=== PATIENT | female | born 1950 | race African-American/Black ===

== ENCOUNTER 2019-01-23 15:52 | Emergency (ER) | payer OTHER ==
[~2019-01-23] VITALS: Ht 167.6 cm; Wt 92.1 kg
--- OUTSIDE RECORDS SUMMARY | 2019-01-23 15:56 | XMS REPORT | Summary of Care ---
Author Author [facility] Organization [facility] Address Unknown Phone Unavailable Encounter HQ Howard(RICHARD) [id number] Date(s): 08/12/17 - 08/12/17 [facility] [address] [place] [address]- Discharge Disposition: Home or Self Care Attending Physician: Srinivasa Borrego MD Referring Physician: Srinivasa Borrego MD Vital Signs No data available for this section Problem List Condition Effective Dates Status Health Status Informant Sarcoidosis, Resolved unspecified(Confirme d) Diabetes(Confirmed) Active Hypertension(Confirm Active ed) Arthritis(Confirmed) Active Allergies, Adverse Reactions, Alerts Substance Reaction Severity Status NKDA Active Medications No data available for this section Results No data available for this section Immunizations No data available for this section Procedures Procedure Date Related Diagnosis Body Site Hysterectomy Social History Social History Type Response Smoking Status Never smoker; Concerns about tobacco use in household: No; Exposure to Tobacco Smoke None; Cigarette Smoking Last 365 Days No; Reg Smoking Cessation Counseling No Assessment and Plan No data available for this section
--- OUTSIDE RECORDS SUMMARY | 2019-01-23 15:56 | XMS REPORT ---
Author Author Petros Martin Organization [employer] Address Unknown Phone Unavailable Care Team Providers Care Caddie Supervisor Name Role Phone Petros Martin CP Unavailable Allergies No Known Allergies Problems Problem Type Condition Code Onset Dates Condition Status Problem Polyarthralgia M25.50 Active Problem Polyarthritis M13.0 Active Problem Hip bursitis, left M70.72 Active Problem Osteoporosis M81.0 Active Problem Vitamin D deficiency, unspecified E55.9 Active Problem Long-term use of high-risk medication Z79.899 Active Problem Sarcoidosis, unspecified D86.9 Active Problem Rheumatoid arthritis with positive rheumatoid factor M05.9 Active Problem Osteopenia M85.80 Active Medications No Known Medications Results No Known Results Summary Purpose eClinicalWorks Submission
--- OUTSIDE RECORDS SUMMARY | 2019-01-23 15:56 | XMS REPORT | Summary of Care ---
Author Author [facility] Organization [facility] Address Unknown Phone Unavailable Encounter KAREN Lawrence(RICHARD) [id number] Date(s): 03/28/18 - 03/28/18 [facility] [address] [place] [address]- [phone] Discharge Disposition: Home or Self Care Attending Physician: Humphrey Lowery DPJorge Referring Physician: Humphrey Lowery DPJorge Vital Signs 1 2 3 Most recent to oldest [Reference Range]: 167.64 cm (03/25/18 8:25 AM) Height 121/61 mmHg (03/28/18 9:45 AM) 114/65 mmHg (03/28/18 9:00 AM) 122/76 mmHg (03/28/18 8:45 AM) Blood Pressure [90-140/60-90 mmHg] 14 BRMIN (03/28/18 8:45 AM) 17 BRMIN (03/28/18 8:30 AM) 12 BRMIN *LOW* (03/28/18 8:15 AM) Respiratory Rate [14-20 BRMIN] 105.085 kg (03/25/18 8:25 AM) Weight 37.39 m2 (03/25/18 8:25 AM) Body Mass Index Problem List Condition Effective Dates Status Health Status Informant Sarcoidosis, Resolved unspecified(Confirme d) Diabetes(Confirmed) Active 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) Hypertension(Confirm Active ed) Arthritis(Confirmed) Active Allergies, Adverse Reactions, Alerts Substance Reaction Severity Status NKDA Active Medications ANES flumazenil 0.2 mg, Route: IVP, PRN, Dosing Weight 105.085, kg, PRN Benzodiazepine Reversal, Initial dose, Start date: 03/28/18 8:52:00 CDT, Duration: 30 day, Stop date: 8:51:00 CDT Start Date: 03/28/18 Stop Date: 03/28/18 Status: Discontinued ANES hydrALAZINE 10 mg, Route: IVP, Q20Min, Dosing Weight 105.085, kg, PRN Elevated BP, Start anila e: 03/28/18 8:52:00 CDT, Duration: 2 doses or times, Stop date: Limited # of gonzalo es Start Date: 03/28/18 Stop Date: 03/28/18 Status: Discontinued ANES meperidine 12.5 mg, Route: IVP, Q30Min, Dosing Weight 105.085, kg, PRN Other -See Comment, For shivering, Start date: 03/28/18 8:52:00 CDT, Duration: 2 doses or times, Sto p date: Limited # of times Start Date: 03/28/18 Stop Date: 03/28/18 Status: Discontinued ANES metoprolol 1 mg, Route: IVP, Q5Min, Dosing Weight 105.085, kg, PRN Other -See Comment, Star t date: 03/28/18 8:52:00 CDT, Duration: 5 doses or times, Stop date: Limited # o f times Start Date: 03/28/18 Stop Date: 03/28/18 Status: Discontinued ANES morphine Sulfate 4 mg, Route: IVP, Q5Min, Dosing Weight 105.085, kg, PRN Pain Score 7-10, Start d ate: 03/28/18 8:52:00 CDT, Duration: 3 doses or times, Stop date: Limited # of t imes Start Date: 03/28/18 Stop Date: 03/28/18 Status: Discontinued ANES naloxone 0.4 mg, Route: IVP, Q2MIN, Dosing Weight 105.085, kg, PRN Narcotic Reversal, Sta rt date: 03/28/18 8:52:00 CDT, Duration: 8 doses or times, Stop date: Limited # of times Start Date: 03/28/18 Stop Date: 03/28/18 Status: Discontinued ANES ondansetron 4 mg, Route: IVP, ONCE, Dosing Weight 105.085, kg, PRN Nausea & Vomiting, Start date: 03/28/18 8:52:00 CDT Start Date: 03/28/18 Stop Date: 03/28/18 Status: Discontinued ANES oxyCODONE 5 mg, Route: PO, Drug form: TAB, Q4H, Dosing Weight 105.085, kg, PRN Pain Score 4-6, Start date: 03/28/18 8:52:00 CDT, Duration: 30 day, Stop date: 04/27/18 8:5 1:00 CDT Start Date: 03/28/18 Stop Date: 03/28/18 Status: Discontinued Basaglar KwikPen 100 units/mL subcutaneous solution 15 unit, SUB-Q, Bedtime, # 6 mL, 3 Refill(s) Start Date: 03/25/18 Status: Ordered ceFAZolin (ANES) 1000 mg Route: IV, Drug form: INJ, Start date: 03/28/18 7:32:00 CDT, Stop date: 03/28/18 8:32:00 CDT Start Date: 03/28/18 Stop Date: 03/28/18 Status: Completed Dextrose 50% Syringe 12.5 gm, Route: IVP, Dosing Weight 105.085, kg, ONCE, Start date: 03/28/18 6:58: 00 CDT, Stop date: 03/28/18 6:58:00 CDT Start Date: 03/28/18 Stop Date: 03/28/18 Status: Completed famotidine (ANES) Route: IV, Drug form: INJ, ONCE, Stop date: 03/28/18 8:08:00 CDT Start Date: 03/28/18 Stop Date: 03/28/18 Status: Completed fentaNYL (ANES) Route: IV, Drug form: INJ, ONCE, Stop date: 03/28/18 8:08:00 CDT Start Date: 03/28/18 Stop Date: 03/28/18 Status: Completed Lactated Ringers Injection IV 1,000 mL 1,000 mL, Rate: 25 ml/hr, Infuse over: 40 hr, Route: IV, Dosing Weight 105.085 k g, Total Volume: 1,000, Start date: 03/28/18 6:30:00 CDT, Duration: 1 day, Stop date: 03/29/18 6:29:00 CDT, 2.24, m2 Start Date: 03/28/18 Stop Date: 03/28/18 Status: Discontinued lidocaine (ANES) Route: IV, Drug form: INJ, ONCE, Stop date: 03/28/18 8:08:00 CDT Start Date: 03/28/18 Stop Date: 03/28/18 Status: Completed metoclopramide (ANES) Route: IV, Drug form: INJ, ONCE, Stop date: 03/28/18 8:08:00 CDT Start Date: 03/28/18 Stop Date: 03/28/18 Status: Completed midazolam (ANES) Route: IV, Drug form: SOLN, ONCE, Stop date: 03/28/18 8:08:00 CDT Start Date: 03/28/18 Stop Date: 03/28/18 Status: Completed propofol (ANES) Route: IV, Drug form: INJ, ONCE, Stop date: 03/28/18 8:08:00 CDT Start Date: 03/28/18 Stop Date: 03/28/18 Status: Completed Sodium Chloride 0.9% IV (ANES) 500 mL Route: IV, Total Volume: 500, Start date: 03/28/18 7:31:00 CDT, Stop date: 03/28 8:31:00 CDT Start Date: 03/28/18 Stop Date: 03/28/18 Status: Completed Sodium Chloride 0.9% IV 500 mL 500 mL, Rate: 25 ml/hr, Infuse over: 20 hr, Route: IV, Dosing Weight 105.085 kg, Total Volume: 500, Start date: 03/28/18 6:45:00 CDT, Duration: 1 doses or times, Stop date: 03/29/18 2:44:00 CDT, 2.24, m2 Start Date: 03/28/18 Stop Date: 03/28/18 Status: Completed Results ELECTROLYTES Most recent to 1 oldest [Reference Range]: Sodium Lvl [135-145 141 mEq/L mEq/L] (03/25/18 9:04 AM) Potassium Lvl 5.1 mEq/L [3.5-5.1 mEq/L] (03/25/18 9:04 AM) Chloride Lvl [95-109 104 mEq/L mEq/L] (03/25/18 9:04 AM) CO2 [24-32 mEq/L] 29 mEq/L (03/25/18 9:04 AM) AGAP [10.0-20.0 13.1 mEq/L mEq/L] (03/25/18 9:04 AM) CHEM PANEL Most recent to 1 oldest [Reference Range]: Creatinine Lvl 2.77 mg/dL [0.50-1.40 mg/dL] *HI* (03/25/18 9:04 AM) eGFR 20 mL/min/1.73m2 1 *NA* (03/25/18 9:04 AM) BUN [7-22 mg/dL] 49 mg/dL *HI* (03/25/18 9:04 AM) Glucose Lvl [70-99 58 mg/dL mg/dL] *LOW* (03/25/18 9:04 AM) Calcium Lvl 8.9 mg/dL [8.5-10.5 mg/dL] (03/25/18 9:04 AM) 1Result Comment: The eGFR is calculated using the CKD-EPI formula. In most young, healthy individuals the eGFR will be >90 mL/min/1.73m2. The eGFR declines with age. An eGFR of 60-89 may be normal in some populations, particularly the elderly, for whom the CKD-EPI formula has not been extensively validated. Use of the eGFR is not recommended in the following populations: Individuals with unstable creatinine concentrations, including patients and those with serious co-morbid conditions. Patients with extremes in muscle mass or diet. The data above are obtained from the National Kidney Disease Education Program ( NKDEP) which additionally recommends that when the eGFR is used in patients with extremes of body mass index for purposes of drug dosing, the eGFR should be mul tiplied by the estimated BMI. SPECIAL CHEMISTRY Most recent to 1 oldest [Reference Range]: Hgb A1C [<=5.6 %] 4.5 % (03/25/18 9:04 AM) HEMATOLOGY Most recent to 1 oldest [Reference Range]: WBC [3.7-10.4 K/CMM] 2.2 K/CMM *LOW* (03/25/18 9:04 AM) RBC [4.20-5.40 2.96 M/CMM M/CMM] *LOW* (03/25/18 9:04 AM) Hgb [12.0-16.0 g/dL] 9.7 g/dL *LOW* (03/25/18 9:04 AM) Hct [36.0-48.0 %] 29.4 % *LOW* (03/25/18 9:04 AM) MCV [80.0-98.0 fL] 99.2 fL *HI* (03/25/18 9:04 AM) MCH [27.0-31.0 pg] 32.7 pg *HI* (03/25/18 9:04 AM) MCHC [32.0-36.0 33.0 g/dL g/dL] (03/25/18 9:04 AM) RDW [11.5-14.5 %] 16.0 % *HI* (03/25/18 9:04 AM) MPV [7.4-10.4 fL] 8.2 fL (03/25/18 9:04 AM) Platelet [133-450 143 K/CMM K/CMM] (03/25/18 9:04 AM) Segs [45.0-75.0 %] 61.1 % (03/25/18 9:04 AM) Lymphocytes 27.1 % [20.0-40.0 %] (03/25/18 9:04 AM) Monocytes [2.0-12.0 6.9 % %] (03/25/18 9:04 AM) Eosinophils [0.0-4.0 4.1 % %] *HI* (03/25/18 9:04 AM) Basophils [0.0-1.0 0.8 % %] (03/25/18 9:04 AM) Segs-Bands # 1.3 K/CMM [1.5-8.1 K/CMM] *LOW* (03/25/18 9:04 AM) Lymphocytes # 0.6 K/CMM [1.0-5.5 K/CMM] *LOW* (03/25/18 9:04 AM) Monocytes # [0.0-0.8 0.1 K/CMM K/CMM] (03/25/18 9:04 AM) Eosinophils # 0.1 K/CMM [0.0-0.5 K/CMM] (03/25/18 9:04 AM) Macrocyte [None 1+ Seen] *ABN* (03/25/18 9:04 AM) Immunizations No data available for this section Procedures Procedure Date Related Diagnosis Body Site Status Colonoscopy Completed Esophagoduodenostomy Completed Hysterectomy Completed Social History Social History Type Response Alcohol Never Smoking Status Never smoker; Concerns about tobacco use in household: No; Exposure to Tobacco Smoke None; Cigarette Smoking Last 365 Days No; Reg Smoking Cessation Counseling No entered on: 03/28/18 Assessment and Plan No data available for this section
--- OUTSIDE RECORDS SUMMARY | 2019-01-23 15:56 | XMS REPORT | Summary of Care ---
Author Author [facility] Organization [facility] Address Unknown Phone Unavailable Encounter KAREN Lawrence(RICHARD) [id number] Date(s): 05/21/18 - 06/19/18 [facility] [address] [place] [address]- Encounter Diagnosis Anemia in chronic kidney disease (Final) - 08/29/18 Discharge Disposition: Home or Self Care Attending Physician: Srinivasa Borrego MD Referring Physician: Srinivasa Borrego MD Vital Signs Most recent to 1 2 oldest [Reference Range]: Height 162.5 cm (05/21/18 7:37 AM) Temperature Oral 98.4 DegF 98.1 DegF [96.4-99.1 DegF] (06/04/18 2:24 PM) (05/21/18 2:38 PM) Blood Pressure 132/82 mmHg 102/71 mmHg [90-140/60-90 mmHg] (06/04/18 2:24 PM) (05/21/18 2:38 PM) Respiratory Rate 18 BRMIN 18 BRMIN [14-20 BRMIN] (06/04/18 2:24 PM) (05/21/18 2:38 PM) Peripheral Pulse 72 bpm 71 bpm Rate [60-100 bpm] (06/04/18 2:24 PM) (05/21/18 2:38 PM) Weight 96.1 kg (05/21/18 7:37 AM) Body Mass Index 36.39 m2 (05/21/18 7:37 AM) Problem List Condition Effective Dates Status Health Status Informant Sarcoidosis, Resolved unspecified(Confirme d) Diabetes(Confirmed) Active 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 (Procrit)WASTE: F/P - Red; E -Red MEDICATION WASTE Product Size: 4000 unitProduct Wasted: ___ unit Start Date: 05/21/18 Stop Date: 05/21/18 Status: Completed Procrit 8,000 unit, 2 mL, Route: SUB-Q, Drug form: INJ, ONCALL, Start date: 06/04/18 14: 00:00 CDT, Duration: 6 hr, Stop date: 06/04/18 19:59:00 CDT Notes: (Same as: Procrit) epoetin jose eduardo 4000 unit/1ml VLFor non-dialysis use only . (Procrit)WASTE: F/P - Red; E -Red MEDICATION WASTE Product Size: 4000 unitProduct Wasted: ___ unit Start Date: 06/04/18 Stop Date: 06/04/18 Status: Completed Results ELECTROLYTES Most recent to 1 2 oldest [Reference Range]: Sodium Lvl [135-145 139 mEq/L mEq/L] (05/21/18 1:11 PM) Potassium Lvl 4.6 mEq/L [3.5-5.1 mEq/L] (05/21/18 1:11 PM) Chloride Lvl [95-109 99 mEq/L mEq/L] (05/21/18 1:11 PM) CO2 [24-32 mEq/L] 29 mEq/L (05/21/18 1:11 PM) AGAP [10.0-20.0 15.6 mEq/L mEq/L] (05/21/18 1:11 PM) CHEM PANEL Most recent to 1 2 oldest [Reference Range]: Creatinine Lvl 3.90 mg/dL [0.50-1.40 mg/dL] *HI* (05/21/18 1:11 PM) eGFR 13 mL/min/1.73m2 1 *NA* (05/21/18 1:11 PM) BUN [7-22 mg/dL] 66 mg/dL *HI* (05/21/18 1:11 PM) Glucose Lvl [70-99 134 mg/dL mg/dL] *HI* (05/21/18 1:11 PM) Calcium Lvl 9.2 mg/dL [8.5-10.5 mg/dL] (05/21/18 1:11 PM) 1Result Comment: The eGFR is calculated using [...] be mul tiplied by the estimated BMI. ANEMIA STUDY Most recent to 1 2 oldest [Reference Range]: Iron [30-160 ug/dl] 98 ug/dl (05/21/18 1:11 PM) Ferritin Lvl [5-204 614 ng/mL ng/mL] *HI* (05/21/18 1:11 PM) % Satur Fe [12-57 %] 36 % (05/21/18 1:11 PM) UIBC [110-370 ug/dl] 171 ug/dl (05/21/18 1:11 PM) TIBC [228-428 ug/dl] 269 ug/dl (05/21/18 1:11 PM) HEMATOLOGY Most recent to 1 2 oldest [Reference Range]: WBC [3.7-10.4 K/CMM] 2.2 K/CMM *LOW* (05/21/18 1:11 PM) RBC [4.20-5.40 2.78 M/CMM M/CMM] *LOW* (05/21/18 1:11 PM) Hgb [12.0-16.0 g/dL] 9.4 g/dL 9.4 g/dL *LOW* *LOW* (06/04/18 1:08 PM) (05/21/18 1:11 PM) Hct [36.0-48.0 %] 27.4 % 27.8 % *LOW* *LOW* (06/04/18 1:08 PM) (05/21/18 1:11 PM) MCV [80.0-98.0 fL] 99.8 fL *HI* (05/21/18 1:11 PM) MCH [27.0-31.0 pg] 33.6 pg *HI* (05/21/18 1:11 PM) MCHC [32.0-36.0 33.7 g/dL g/dL] (05/21/18 1:11 PM) RDW [11.5-14.5 %] 16.2 % *HI* (05/21/18 1:11 PM) MPV [7.4-10.4 fL] 8.0 fL (05/21/18 1:11 PM) Platelet [133-450 121 K/CMM K/CMM] *LOW* (05/21/18 1:11 PM) Segs [45.0-75.0 %] 78.3 % *HI* (05/21/18 1:11 PM) Lymphocytes 12.2 % [20.0-40.0 %] *LOW* (05/21/18 1:11 PM) Monocytes [2.0-12.0 1.6 % %] *LOW* (05/21/18 1:11 PM) Eosinophils [0.0-4.0 7.2 % %] *HI* (05/21/18 1:11 PM) Basophils [0.0-1.0 0.7 % %] (05/21/18 1:11 PM) Neutrophils # 1.7 K/CMM [1.5-8.1 K/CMM] (05/21/18 1:11 PM) Lymphocytes # 0.3 K/CMM [1.0-5.5 K/CMM] *LOW* (05/21/18 1:11 PM) Eosinophils # 0.2 K/CMM [0.0-0.5 K/CMM] (05/21/18 1:11 PM) Macrocyte [None 1+ Seen] *ABN* (05/21/18 1:11 PM) Immunizations No data available for this section Procedures Procedure Date Related Diagnosis Body Site Status Colonoscopy Completed Esophagoduodenostomy Completed Hysterectomy Completed Social History Social History Type Response Alcohol Never Smoking Status Never smoker; Concerns about tobacco use in household: No; Exposure to Tobacco Smoke None; Cigarette Smoking Last 365 Days No; Reg Smoking Cessation Counseling No entered on: 01/05/19 Assessment and Plan No data available for this section
--- OUTSIDE RECORDS SUMMARY | 2019-01-23 15:56 | XMS REPORT ---
Author Author Chelsy Reeder [facility] [employer] Address Unknown Phone Unavailable Care Team Providers Care Catering Server Name Role Phone Chelsy Reeder CP Unavailable Allergies No Known Allergies Problems [...] M05.9 Active Problem Osteopenia M85.80 Active Medications Medication Code System Code Instructions Start Date End Date Status Dosage Methotrexate [facility] 13079416500 2.5 MG Orally once a week Nov 25, 2017 Active 5 tablets Results No Known Results Summary Purpose [employer]ClinicalWorks Submission
--- OUTSIDE RECORDS SUMMARY | 2019-01-23 15:56 | XMS REPORT | Summary of Care ---
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
--- OUTSIDE RECORDS SUMMARY | 2019-01-23 15:56 | XMS REPORT ---
Author Author Petros Martin Organization [employer] Address Unknown Phone Unavailable Care Team Providers Care Cage Unloader Name Role Phone Petros Martin CP Unavailable Allergies No Known Allergies Problems Problem Type Condition Code Onset Dates Condition Status Problem Polyarthralgia M25.50 Active Problem Rheumatoid arthritis with positive rheumatoid factor M05.9 Active Problem Sarcoidosis, unspecified D86.9 Active Problem Polyarthritis M13.0 Active Problem Primary osteoarthritis of right knee M17.11 Active Problem Vitamin D deficiency, unspecified E55.9 Active Problem Primary osteoarthritis of left knee M17.12 Active Problem Long-term use of high-risk medication Z79.899 Active Problem Osteopenia M85.80 Active Problem Hip bursitis, left M70.72 Active Problem Osteoporosis M81.0 Active Medications No Known Medications Results No Known Results Summary Purpose [employer] Submission
--- OUTSIDE RECORDS SUMMARY | 2019-01-23 15:56 | XMS REPORT | Summary of Care ---
Author Author [facility] Organization [facility] Address Unknown Phone Unavailable Encounter HQ Encntr_aliboni(FIN) [id number] Date(s): 04/11/17 - 04/11/17 [facility] [address] [place] [address]- Discharge Disposition: Home or Self Care Attending Physician: Saman Story MD Referring Physician: Saman Story MD Vital Signs No data available for this section Problem List Condition Effective Dates Status Health Status Informant Diabetes(Confirmed) Resolved Allergies, Adverse Reactions, Alerts Substance Reaction Severity Status NKDA Active Medications No data available for this section Results No data available for this section Immunizations No data available for this section Procedures No data available for this section Social History Social History Type Response Smoking Status Never smoker; Exposure to Tobacco Smoke None; Cigarette Smoking Last 365 Days No; Reg Smoking Cessation Counseling No Assessment and Plan No data available for this section
--- OUTSIDE RECORDS SUMMARY | 2019-01-23 15:56 | XMS REPORT ---
Author Author Petros Martin Organization [employer] Address Unknown Phone Unavailable Care Team Providers Care Furniture Rental Consultant Name Role Phone Petros Martin CP Unavailable Allergies No Known Allergies Problems Problem Type Condition Code Onset Dates Condition Status Problem Polyarthralgia M25.50 Active Problem Rheumatoid arthritis with positive rheumatoid factor M05.9 Active Problem Sarcoidosis, unspecified D86.9 Active Assessment Osteoporosis M81.0 Active Problem Polyarthritis M13.0 Active Problem Primary osteoarthritis of right knee M17.11 Active Problem Vitamin D deficiency, unspecified E55.9 Active Problem Primary osteoarthritis of left knee M17.12 Active Problem Long-term use of high-risk medication Z79.899 Active Problem Osteopenia M85.80 Active Problem Hip bursitis, left M70.72 Active Problem Osteoporosis M81.0 Active Medications Medication Code System Code Instructions Start Date End Date Status Dosage Prolia [facility] [id number] 60 MG/ML Subcutaneous q 6 months Nov 13, 2018 Active as directed Results No Known Results Summary Purpose eClinicalWorks Submission
--- OUTSIDE RECORDS SUMMARY | 2019-01-23 15:56 | XMS REPORT | Summary of Care ---
Author Author [facility] Address Unknown Phone Unavailable Encounter HQ Encntr_aliboni(FIN) [id number] Date(s): 05/08/16 - 06/06/16 [facility] Discharge Disposition: Home or Self Care Attending Physician: Alen Nicole MD Vital Signs No data available for [...]
--- OUTSIDE RECORDS SUMMARY | 2019-01-23 15:56 | XMS REPORT ---
Author Author Petros Martin Organization [employer] Address Unknown Phone Unavailable Care Team Providers Care Circle Edger Name Role Phone Petros Martin CP Unavailable [...] Medications Results No Known Results Summary Purpose [employer] Submission
--- OUTSIDE RECORDS SUMMARY | 2019-01-23 15:56 | XMS REPORT ---
Author Author Petros Martin Organization [employer] Address Unknown Phone Unavailable Care Team Providers Care Electronics System Mechanic Name Role Phone Petros Martin CP Unavailable [...] Instructions Start Date End Date Status Dosage Rasuvo [facility] [id number] 15 MG/0.3ML Subcutaneous Once a week Nov 27, 2017 Active as directed Results No Known Results Summary Purpose eClinicalWorks Submission
--- OUTSIDE RECORDS SUMMARY | 2019-01-23 15:56 | XMS REPORT | Continuity of Care Document ---
Author Author [facility]rant[facility] Interface Address Unknown Phone Unavailable Problems Problem Status Onset Date Classification Date Reported Comments Source PROCRIT 8,000 UNITS J0885 // CPT: 02379 Active 12/02/2018 [facility] Anemia in chronic kidney disease 08/29/2018 01/06/2019 [facility] PROCRIT 8,000 UNITS /// CPT: J0885, 9637 Active 07/01/2018 [facility] Chronic kidney disease, unspecified 05/15/2018 11/25/2018 [facility] UNK Active 03/13/2018 [facility] Plantar fascial fibromatosis 01/01/2018 04/02/2018 [facility] DX: M72.2=PLANTAR FASCIAL FIBROMATOSIS/D Active 12/17/2017 [facility] DX: Active 07/31/2017 [facility] CHRONIC KIDNEY DISEASE Active 07/23/2017 [facility] R05 Active 07/19/2017 [facility] DX: K21.9=GASTRO-ESOPHAGEAL REFLUX DISEA Active 04/04/2017 [facility] FALL Active 12/05/2015 [facility] Discharge Diagnosis: Nondisplaced fracture of triquetrum [cuneiform] bone, left wrist, initial encounter for closed fracture 12/05/2015 12/08/2015 [facility] Discharge Diagnosis: Nondisplaced fracture of lateral malleolus of left fibula, initial encounter for closed fracture 12/05/2015 12/08/2015 [facility] Sarcoidosis, unspecified Resolved Problem 01/08/2019 [facility] Diabetes Active Problem 01/08/2019 [facility] [place] Hypertension Active Problem 01/08/2019 [facility] Arthritis Active Problem 01/08/2019 [facility] Benign lipomatous neoplasm of skin and subcutaneous tissue of right leg 04/02/2018 [facility] 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 Active Problem 01/08/2019 [facility] Rheumatoid arthritis with positive rheumatoid factor Active Problem 12/26/2018 Reed Martin Polyarthralgia Active Problem 12/26/2018 Reed Martin Polyarthritis Active Problem 12/26/2018 Reed Krafter Long-term use of high-risk medication Active Problem 12/26/2018 Reed Martin Hip bursitis, left Active Problem 12/26/2018 Reed Martin Osteoporosis Active Problem 12/26/2018 Reed Martin Vitamin D deficiency, unspecified Active Problem 12/26/2018 Reed Martin Sarcoidosis, unspecified Active Problem 12/26/2018 Reed Martin Osteopenia Active Problem 12/26/2018 Reed Martin Hammertoe of left foot Active Problem 03/14/2018 [facility] Rheumatoid arthritis involving both feet, unspecified rheumatoid factor presence Active Problem 03/14/2018 [facility] Hammertoe of right foot Active Problem 03/14/2018 [facility] Type 2 diabetes mellitus without complications Active Problem 03/14/2018 [facility] Rheumatoid arthritis with rheumatoid factor of right ankle and foot without organ or systems involvement Active Problem 03/14/2018 [facility] Plantar fasciitis Active Problem 03/14/2018 [facility] nursing home current use of insulin Active Problem 03/14/2018 [facility] Lipoma of right lower extremity Active Problem 03/14/2018 [facility] Rheumatoid arthritis with rheumatoid factor of left ankle and foot without organ or systems involvement Active Problem 03/14/2018 [facility] Lipoma of left lower extremity Active Problem 03/14/2018 [facility] Chronic kidney disease, stage 4 Active Problem 03/14/2018 [facility] Type 2 diabetes mellitus with diabetic chronic kidney disease Active Problem 03/14/2018 [facility] Primary osteoarthritis of right knee Active Problem 12/26/2018 Reed Martin Primary osteoarthritis of left knee Active Problem 12/26/2018 Reed Krafter Decreased renal function Active Diagnosis 08/16/2018 Reed Martin Anemia Active Diagnosis 08/16/2018 Reed Martin nursing home use of opiate analgesic Active Diagnosis 07/19/2018 Reed Martin LT SHOULDER IMPINGMENT SYNDROME, LT WRIS Active [facility] [place] CHRONIC KIDNEY DISEASE, STAGE 4 (SEVERE) Active [facility] COUGH Active [facility] HYPERTENSIVE CHRONIC KIDNEY DISEASE W ST Active [facility] PLANTAR FASCIAL FIBROMATOSIS Active [facility] BENIGN LIPOMATOUS NEOPLASM OF SKIN, SUBC Active [facility] Medications Medication Details Route Status Patient Instructions Ordering Provider Order Date Source Prolia as directed Subcutaneous Active 60 MG/ML Subcutaneous Reeder 11/13/2018 Reed Martin Tylenol/Codeine #3 1 tablet as needed Orally Active 300-30 MG Orally TID Reeder 10/08/2018 Reed Martin Tylenol/Codeine #3 1 tablet as needed Orally Active 300-30 MG Orally TID Reeder 09/29/2018 Reed Martin Methotrexate take 5 tablets by mouth every week Orally Active 2.5 MG Orally Once a week Martin 08/12/2018 Reed Martin Procrit 8,000 unit, 2 mL, Route: SUB-Q, Drug form: INJ, ONCALL, Start date: 06/04/18 14:00:00 CDT, Duration: 6 hr, Stop date: 06/04/18 19:59:00 CDTNotes: (Same as: Procrit) epoetin jose eduardo 4000 unit/1ml VL For non- dialysis use only. (Procrit) WASTE: F/P - Red; E -Red MEDICATION WASTE Product Size: 4000 unit Product Wasted: ___ unit Inactive 06/04/2018 [facility] Procrit 8,000 unit, 2 mL, Route: SUB-Q, Drug form: INJ, ONCALL, Start date: 05/21/18 15:00:00 CDT, Duration: 6 hr, Stop date: 05/21/18 20:59:00 CDTNotes: (Same as: Procrit) epoetin jose eduardo 4000 unit/1ml VL For non- dialysis use only. (Procrit) WASTE: F/P - Red; E -Red MEDICATION WASTE Product Size: 4000 unit Product Wasted: ___ unit Inactive 05/21/2018 [facility] Procrit 8,000 unit, 2 mL, Route: SUB-Q, Drug form: INJ, ONCALL, Start date: 05/07/18 14:00:00 CDT, Duration: 6 hr, Stop date: 05/07/18 19:59:00 CDTNotes: (Same as: Procrit) epoetin jose eduardo 4000 unit/1ml VL For non- dialysis use only. (Procrit) WASTE: F/P - Red; E -Red MEDICATION WASTE Product Size: 4000 unit Product Wasted: ___ unit Inactive 05/07/2018 [facility] Ondansetron 4 mg, Route: IVP, ONCE, Dosing Weight 105.085, kg, PRN Nausea & Vomiting, Start date: 03/28/18 8:52:00 CDT Inactive 03/28/2018 [facility] Metoprolol 1 mg, Route: IVP, Q5Min, Dosing Weight 105.085, kg, PRN Other -See Comment, Start date: 03/28/18 8:52:00 CDT, Duration: 5 doses or times, Stop date: Limited # of times Inactive 03/28/2018 [facility] Oxycodone 5 mg, Route: PO, Drug form: TAB, Q4H, Dosing Weight 105.085, kg, PRN Pain Score 4-6, Start date: 03/28/18 8:52:00 CDT, Duration: 30 day, Stop date: 04/27/18 8:51:00 CDT Inactive 03/28/2018 [facility] Morphine 4 mg, Route: IVP, Q5Min, Dosing Weight 105.085, kg, PRN Pain Score 7-10, Start date: 03/28/18 8:52:00 CDT, Duration: 3 doses or times, Stop date: Limited # of times Inactive 03/28/2018 [facility] Flumazenil 0.2 mg, Route: IVP, PRN, Dosing Weight 105.085, kg, PRN Benzodiazepine Reversal, Initial dose, Start date: 03/28/18 8:52:00 CDT, Duration: 30 day, Stop date: 04/27/18 8:51:00 CDT Inactive 03/28/2018 [facility] Naloxone 0.4 mg, Route: IVP, Q2MIN, Dosing Weight 105.085, kg, PRN Narcotic Reversal, Start date: 03/28/18 8:52:00 CDT, Duration: 8 doses or times, Stop date: Limited # of times Inactive 03/28/2018 [facility] Meperidine 12.5 mg, Route: IVP, Q30Min, Dosing Weight 105.085, kg, PRN Other -See Comment, For shivering, Start date: 03/28/18 8:52:00 CDT, Duration: 2 doses or times, Stop date: Limited # of times Inactive 03/28/2018 [facility] Hydralazine 10 mg, Route: IVP, Q20Min, Dosing Weight 105.085, kg, PRN Elevated BP, Start date: 03/28/18 8:52:00 CDT, Duration: 2 doses or times, Stop date: Limited # of times Inactive 03/28/2018 [facility] lidocaine (ANES) Route: IV, Drug form: INJ, ONCE, Stop date: 03/28/18 8:08:00 CDT Inactive 03/28/2018 [facility] famotidine (ANES) Route: IV, Drug form: INJ, ONCE, Stop date: 03/28/18 8:08:00 CDT Inactive 03/28/2018 [facility] metoclopramide (ANES) Route: IV, Drug form: INJ, ONCE, Stop date: 03/28/18 8:08:00 CDT Inactive 03/28/2018 [facility] propofol (ANES) Route: IV, Drug form: INJ, ONCE, Stop date: 03/28/18 8:08:00 CDT Inactive 03/28/2018 [facility] fentaNYL (ANES) Route: IV, Drug form: INJ, ONCE, Stop date: 03/28/18 8:08:00 CDT Inactive 03/28/2018 [facility] midazolam (ANES) Route: IV, Drug form: SOLN, ONCE, Stop date: 03/28/18 8:08:00 CDT Inactive 03/28/2018 [facility] ceFAZolin (ANES) 1000 mg Route: IV, Drug form: INJ, Start date: 03/28/18 7:32:00 CDT, Stop date: 03/28/18 8:32:00 CDT Inactive 03/28/2018 [facility] Sodium Chloride 0.9% IV (ANES) 500 mL Route: IV, Total Volume: 500, Start date: 03/28/18 7:31:00 CDT, Stop date: 03/28/18 8:31:00 CDT Inactive 03/28/2018 [facility] Dextrose 50% Syringe 12.5 gm, Route: IVP, Dosing Weight 105.085, kg, ONCE, Start date: 03/28/18 6:58:00 CDT, Stop date: 03/28/18 6:58:00 CDT Inactive 03/28/2018 [facility] Sodium Chloride 0.9% IV 500 mL 500 mL, Rate: 25 ml/hr, Infuse over: 20 hr, Route: IV, Dosing Weight 105.085 kg, Total Volume: 500, Start date: 03/28/18 6:45:00 CDT, Duration: 1 doses or times, Stop date: 03/29/18 2:44:00 CDT, 2.24, m2 Inactive 03/28/2018 [facility] Calcium Chloride 0.0014 MEQ/ML / Potassium Chloride 0.004 MEQ/ML / Sodium Chloride 0.103 MEQ/ML / Sodium Lactate 0.028 MEQ/ML Injectable Solution 1,000 mL, Rate: 25 ml/hr, Infuse over: 40 hr, Route: IV, Dosing Weight 105.085 kg, Total Volume: 1,000, Start date: 03/28/18 6:30:00 CDT, Duration: 1 day, Stop date: 03/29/18 6:29:00 CDT, 2.24, m2 Inactive 03/28/2018 [facility] Procrit 8,000 unit, 2 mL, Route: SUB-Q, Drug form: INJ, ONCALL, Start date: 03/26/18 14:00:00 CDT, Duration: 6 hr, Stop date: 03/26/18 19:59:00 CDTNotes: (Same as: Procrit) epoetin jose eduardo 4000 unit/1ml VL For non- dialysis use only. (Procrit) WASTE: F/P - Red; E -Red MEDICATION WASTE Product Size: 4000 unit Product Wasted: ___ unit Inactive 03/26/2018 [facility] 3 ML Insulin Glargine 100 UNT/ML Pen Injector [Basaglar] 15 unit, SUB-Q, Bedtime, # 6 mL, 3 Refill(s) Active 03/25/2018 [facility] Procrit 8,000 unit, 2 mL, Route: SUB-Q, Drug form: INJ, ONCALL, Start date: 03/12/18 15:00:00 CDT, Duration: 6 hr, Stop date: 03/12/18 20:59:00 CDTNotes: (Same as: Procrit) epoetin jose eduardo 4000 unit/1ml VL For non- dialysis use only. (Procrit) WASTE: F/P - Red; E -Red MEDICATION WASTE Product Size: 4000 unit Product Wasted: ___ unit Inactive 03/12/2018 [facility] Procrit 8,000 unit, 2 mL, Route: SUB-Q, Drug form: INJ, ONCALL, Start date: 02/26/18 15:00:00 CDT, Duration: 6 hr, Stop date: 02/26/18 20:59:00 CDTNotes: (Same as: Procrit) epoetin jose eduardo 4000 unit/1ml VL For non- dialysis use only. (Procrit) WASTE: F/P - Red; E -Red MEDICATION WASTE Product Size: 4000 unit Product Wasted: ___ unit Inactive 02/26/2018 [facility] Tylenol/Codeine #3 1 tablet as needed Orally Active 300-30 MG Orally TID Reeder 02/12/2018 Reed Martin Rasuvo as directed Subcutaneous Active 15 MG/0.3ML Subcutaneous Once a week Umbarger 11/27/2017 Reed Martin Methotrexate 5 tablets Orally Active 2.5 MG Orally once a week [place] 11/25/2017 [facility] Martin Toujeo SoloStar 300 units/mL subcutaneous solution 15 unit, SUB-Q, Daily, 0 Refill(s) Active 07/29/2017 [facility] gabapentin 400 MG Oral Capsule 800 mg=2 cap, PO, TID, # 90 cap, 1 Refill(s) Active 04/23/2017 [facility] trospium chloride 20 mg oral tablet 20 mg=1 tab, PO, BID Active 04/23/2017 [facility] methotrexate 2.5 mg oral tablet 12.5 mg=5 tab, PO, Q7D Active 04/23/2017 [facility] simvastatin 20 mg oral tablet 20 mg=1 tab, PO, Bedtime Active 04/23/2017 [facility] Acetaminophen 300 MG / Codeine Phosphate 30 MG Oral Tablet 1 tab, PO, Q6H, PRN Pain Active 04/23/2017 [facility] Insulin Glargine 100 UNT/ML Injectable Solution [Lantus] 20 unit, SUB-Q, Bedtime Active 04/23/2017 [facility] Omeprazole 40 mg, PO, Daily, 0 Refill(s) Active 04/23/2017 [facility] ropinirole 0.5 MG Oral Tablet [Requip] 0.5 mg=1 tab, PO, TID Active 04/23/2017 [facility] Hydrochlorothiazide 12.5 MG / Lisinopril 20 MG Oral Tablet 1 tab, PO, Daily Active 04/23/2017 [facility] Trospium 20 mg, PO, BID, 0 Refill(s) Inactive 04/23/2017 [facility] Acetaminophen 300 MG / Codeine Phosphate 30 MG Oral Tablet 1 tab, PO, Q6H, 0 Refill(s) Inactive 04/23/2017 [facility] Methotrexate 2.5 mg, PO, qWeek, 0 Refill(s) Inactive 04/23/2017 [facility] Acetaminophen 325 MG / Hydrocodone Bitartrate 5 MG Oral Tablet [Zearing 5/325] 1 tab, PO, Q4-6H, PRN Pain, X 5 day, # 20 tab, 0 Refill(s) Active 12/05/2015 [facility] tramadol hydrochloride 50 MG Oral Tablet 50 mg=1 tab, PO, Q4H, PRN as needed for pain, X 7 day, # 24 tab, 0 Refill(s) Inactive 12/05/2015 [facility] Acetaminophen 325 MG / Hydrocodone Bitartrate 10 MG Oral Tablet [Zearing 10/325] 1 tab, Route: PO, Drug Form: TAB, Dosing Weight 82.727, kg, ONCE, STAT, Start date: 12/05/15 16:05:00, Stop date: 12/05/15 16:05:00 Inactive 12/05/2015 [facility] Motrin 600 mg, 3 tab, Route: PO, Drug form: TAB, ONCE, Dosing Weight 82.727, kg, Priority: STAT, Start date: 12/05/15 14:02:00, Stop date: 12/05/15 14:02:00Notes: (Same as: Advil) Give with food. Inactive 12/05/2015 [facility] Gabapentin 1 capsule Orally Active 400 MG Orally Three times a day Varinder Martin Omeprazole 1 capsule Orally Active 40 MG Orally Once a day Fakcorky Martin Methotrexate take 5 tablets by mouth every week Orally Active 2.5 MG Orally Once a week Varinder Martin Vitamin D 1 tablet Orally Active 1000 UNIT Orally Once a day Varinder Martin Folic Acid 1 tablet Orally Active 400 MCG Orally Once a day Varinder Martin Tylenol/Codeine #3 1 tablet as needed Orally Active 300-30 MG Orally TID [place] Reed Martin Ropinirole HCl 1 tablet 1 to 3 hours before bedtime Orally Active 0.5 MG Orally Once a day [place] Reed Martin Lasix 1 tablet Orally Active 40 MG Orally Once a day [place]akoya Reed Martin Lisinopril-Hydrochlorothiazide 1 tablet Orally Active 20-12.5 MG Orally Once a day [place] Reed Martin Bumetanide 1 tablet Orally Active 1 MG Orally once a day [place] Reed Krafter Toujeo SoloStar as directed Subcutaneous Active 300 UNIT/ML Subcutaneous [place] Reed Martin Basaglar KwikPen 15 units Subcutaneous Active 100 UNIT/ML Subcutaneous once a day at bedtime [place] Reed Martin Methotrexate 5 tablets Orally Active 2.5 MG Orally once a week [place] Reed Martin Allergies, Adverse Reactions, Alerts Substance Category Reaction Severity Reaction type Status Date Reported Comments Source Clindacin ETZ Adverse Reaction Info Not Available Adverse Reaction Active 11/13/2018 Reed Martin Limbrel Adverse Reaction vomiting Adverse Reaction Active 11/13/2018 Reed Martin Folic Acid Adverse Reaction nausea Adverse Reaction Active 11/13/2018 Reed Martin Tylenol with Codeine Adverse Reaction Info Not Available Adverse Reaction Active 11/13/2018 Reed Martin Immunizations Immunization Date Given Site Status Last Updated Comments Source Results Order Name Results Value Reference Range Date Interpretation Comments [facility] HEMATOLOGY Hgb 10.0 g/dL 12.0 - 16.0 01/05/[address] [facility] Hct 31.5 % 36.0 - 48.0 01/05/2019 [facility] HEMATOLOGY Hct 33.3 % 36.0 - 48.0 12/08/2018 [facility] HEMATOLOGY Hgb 11.0 g/dL 12.0 - 16.0 12/08/2018 [facility] ANEMIA STUDY Ferritin Lvl 902 ng/mL 5 - 204 10/27/2018 [facility] ANEMIA STUDY UIBC 120 ug/dl 110 - 370 10/27/2018 [facility] ANEMIA STUDY % [place] 43 % 12 - 57 10/27/2018 [facility] ANEMIA STUDY TIBC 210 ug/dl 228 - 428 10/27/2018 [facility] ANEMIA STUDY Iron 90 ug/dl 30 - 160 10/27/2018 [facility] HEMATOLOGY MCHC 34.3 g/dL 32.0 - 36.0 10/27/2018 [facility] HEMATOLOGY MCV 97.4 fL 80.0 - 98.0 10/27/[address] [facility] MCH 33.4 pg 27.0 - 31.0 10/27/2018 [facility] HEMATOLOGY RBC 3.02 M/CMM 4.20 - 5.40 10/27/2018 [facility] HEMATOLOGY Hct 29.4 % 36.0 - 48.0 10/27/[address] [facility] Hgb 10.1 g/dL 12.0 - 16.0 10/27/[address] [facility] WBC 5.8 K/CMM 3.7 - 10.4 10/27/[address] [facility] MPV 7.9 fL 7.4 - 10.4 10/27/[address] [facility] Platelet 225 K/CMM 133 - 450 10/27/[address] [facility] RDW 16.3 % 11.5 - 14.5 10/27/2018 [facility] HEMATOLOGY Eosinophils # 0.2 K/CMM 0.0 - 0.5 10/27/[address] [facility] Monocytes # 0.4 K/CMM 0.0 - 0.8 10/27/[address] [facility] Lymphocytes # 1.0 K/CMM 1.0 - 5.5 10/27/[address] [facility] Neutrophils # 4.2 K/CMM 1.5 - 8.1 10/27/[address] [facility] Basophils 0.6 % 0.0 - 1.0 10/27/[address] [facility] Eosinophils 3.1 % 0.0 - 4.0 10/27/[address] [facility] Lymphocytes 17.9 % 20.0 - 40.0 10/27/[address] [facility] Segs 72.1 % 45.0 - 75.0 10/27/[address] [facility] Monocytes 6.3 % 2.0 - 12.0 10/27/[address] [facility] Hct 27.4 % 36.0 - 48.0 06/04/[address] [facility] Hgb 9.4 g/dL 12.0 - 16.0 06/04/2018 [facility] ANEMIA STUDY Ferritin Lvl 614 ng/mL 5 - 204 05/21/2018 [facility] ANEMIA STUDY UIBC 171 ug/dl 110 - 370 05/21/2018 [facility] ANEMIA STUDY % [place] 36 % 12 - 57 05/21/2018 [facility] ANEMIA STUDY TIBC 269 ug/dl 228 - 428 05/21/2018 [facility] ANEMIA STUDY Iron 98 ug/dl 30 - 160 05/21/2018 [facility] CHEM PANEL eGFR 13 mL/min/1.73m2 05/21/2018 Result Comment: The eGFR is calculated using the [...] from the National Kidney Disease Education Program (NKDEP) which additionally recommends that when the eGFR is used in patients with extremes of body mass index for purposes of drug dosing, the eGFR should be multiplied by the estimated BMI. [facility] CHEM PANEL Calcium Lvl 9.2 mg/dL 8.5 - 10.5 05/21/2018 [facility] CHEM PANEL CO2 29 meq/L 24 - 32 05/21/2018 [facility] CHEM PANEL Chloride Lvl 99 meq/L 95 - 109 05/21/2018 [facility] CHEM PANEL BUN 66 mg/dL 7 - 22 05/21/2018 [facility] CHEM PANEL Glucose Lvl 134 mg/dL 70 - 99 05/21/2018 [facility] CHEM PANEL Potassium Lvl 4.6 meq/L 3.5 - 5.1 05/21/2018 [facility] CHEM PANEL Creatinine Lvl 3.90 mg/dL 0.50 - 1.40 05/21/2018 [facility] CHEM PANEL Sodium Lvl 139 meq/L 135 - 145 05/21/2018 [facility] CHEM PANEL AGAP 15.6 meq/L 10.0 - 20.0 05/21/2018 [facility] HEMATOLOGY Eosinophils 7.2 % 0.0 - 4.0 05/21/2018 [facility] HEMATOLOGY Lymphocytes 12.2 % 20.0 - 40.0 05/21/2018 [facility] HEMATOLOGY Monocytes 1.6 % 2.0 - 12.0 05/21/2018 [facility] HEMATOLOGY Basophils 0.7 % 0.0 - 1.0 05/21/2018 [facility] HEMATOLOGY Segs 78.3 % 45.0 - 75.0 05/21/2018 [facility] HEMATOLOGY Neutrophils # 1.7 K/CMM 1.5 - 8.1 05/21/[address] [facility] Lymphocytes # 0.3 K/CMM 1.0 - 5.5 05/21/[address] [facility] Macrocyte 1+ *ABN* (05/21/18 1:11 PM) None Seen 05/21/[address] [facility] Eosinophils # 0.2 K/CMM 0.0 - 0.5 05/21/[address] [facility] Hct 27.8 % 36.0 - 48.0 05/21/[address] [facility] MCV 99.8 fL 80.0 - 98.0 05/21/[address] [facility] Hgb 9.4 g/dL 12.0 - 16.0 05/21/[address] [facility] MCH 33.6 pg 27.0 - 31.0 05/21/[address] [facility] MPV 8.0 fL 7.4 - 10.4 05/21/[address] [facility] RDW 16.2 % 11.5 - 14.5 05/21/[address] [facility] MCHC 33.7 g/dL 32.0 - 36.0 05/21/[address] [facility] Platelet 121 K/CMM 133 - 450 05/21/[address] [facility] WBC 2.2 K/CMM 3.7 - 10.4 05/21/[address] [facility] RBC 2.78 M/CMM 4.20 - 5.40 05/21/[address] [facility] Hct 30.4 % 36.0 - 48.0 05/07/[address] [facility] Hgb 9.9 g/dL 12.0 - 16.0 05/07/2018 [facility] CHEM PANEL eGFR 15 mL/min/1.73m2 04/23/2018 Result Comment: The eGFR is calculated using the [...] from the National Kidney Disease Education Program (NKDEP) which additionally recommends that when the eGFR is used in patients with extremes of body mass index for purposes of drug dosing, the eGFR should be multiplied by the estimated BMI. [facility] CHEM PANEL Creatinine Lvl 3.45 mg/dL 0.50 - 1.40 04/23/2018 [facility] CHEM PANEL Chloride Lvl 101 meq/L 95 - 109 04/23/2018 [facility] CHEM PANEL Potassium Lvl 4.6 meq/L 3.5 - 5.1 04/23/2018 [facility] CHEM PANEL Sodium Lvl 138 meq/L 135 - 145 04/23/2018 [facility] CHEM PANEL AGAP 13.6 meq/L 10.0 - 20.0 04/23/2018 [facility] CHEM PANEL Calcium Lvl 9.0 mg/dL 8.5 - 10.5 04/23/2018 [facility] CHEM PANEL CO2 28 meq/L 24 - 32 04/23/2018 [facility] CHEM PANEL BUN 67 mg/dL 7 - 04/23/2018 [facility] CHEM PANEL Glucose Lvl 87 mg/dL 70 - 99 04/23/2018 [facility] ANEMIA STUDY Ferritin Lvl 577 ng/mL 5 - 204 04/23/2018 [facility] ANEMIA STUDY Iron 87 ug/dl 30 - 160 04/23/2018 [facility] ANEMIA STUDY TIBC 284 ug/dl 228 - 428 04/23/2018 [facility] ANEMIA STUDY UIBC 197 ug/dl 110 - 370 04/23/2018 [facility] ANEMIA STUDY % [place] 31 % 12 - 57 04/23/2018 [facility] HEMATOLOGY Eosinophils 3.5 % 0.0 - 4.0 04/23/[address] [facility] Monocytes 2.1 % 2.0 - 12.0 04/23/[address] [facility] Lymphocytes 14.3 % 20.0 - 40.0 04/23/2018 [facility] HEMATOLOGY Segs 79.4 % 45.0 - 75.0 04/23/[address] [facility] Eosinophils # 0.1 K/CMM 0.0 - 0.5 04/23/2018 [facility] HEMATOLOGY Monocytes # 0.1 K/CMM 0.0 - 0.8 04/23/[address] [facility] Lymphocytes # 0.5 K/CMM 1.0 - 5.5 04/23/[address] [facility] Basophils 0.7 % 0.0 - 1.0 04/23/[address] [facility] Neutrophils # 2.9 K/CMM 1.5 - 8.1 04/23/[address] [facility] Macrocyte 1+ *ABN* (04/23/18 1:02 PM) None Seen 04/23/[address] [facility] MCHC 33.2 g/dL 32.0 - 36.0 04/23/[address] [facility] MCH 33.0 pg 27.0 - 31.0 04/23/[address] [facility] MPV 7.9 fL 7.4 - 10.4 04/23/[address] [facility] Platelet 150 K/CMM 133 - 450 04/23/[address] [facility] MCV 99.3 fL 80.0 - 98.0 04/23/[address] [facility] RDW 15.3 % 11.5 - 14.5 04/23/[address] [facility] Hct 32.3 % 36.0 - 48.0 04/23/[address] [facility] Hgb 10.7 g/dL 12.0 - 16.0 04/23/[address] [facility] WBC 3.7 K/CMM 3.7 - 10.4 04/23/[address] [facility] RBC 3.25 M/CMM 4.20 - 5.40 04/23/[address] [facility] Hgb 12.2 g/dL 12.0 - 16.0 04/09/[address] [facility] Hct 36.3 % 36.0 - 48.0 04/09/2018 [facility] ELECTROLYTES AGAP 13.1 meq/L 10.0 - 20.0 03/25/2018 [facility] ELECTROLYTES eGFR 20 mL/min/1.73m2 03/25/2018 Result Comment: The eGFR is calculated using the [...] from the National Kidney Disease Education Program (NKDEP) which additionally recommends that when the eGFR is used in patients with extremes of body mass index for purposes of drug dosing, the eGFR should be multiplied by the estimated BMI. [facility] ELECTROLYTES BUN 49 mg/dL 7 - 03/25/2018 [facility] ELECTROLYTES Glucose Lvl 58 mg/dL 70 - 99 03/25/2018 [facility] ELECTROLYTES Creatinine Lvl 2.77 mg/dL 0.50 - 1.40 03/25/2018 [facility] ELECTROLYTES Potassium Lvl 5.1 meq/L 3.5 - 5.1 03/25/2018 [facility] ELECTROLYTES Sodium Lvl 141 meq/L 135 - 145 03/25/2018 [facility] ELECTROLYTES CO2 29 meq/L 24 - 32 03/25/2018 [facility] ELECTROLYTES Chloride Lvl 104 meq/L 95 - 109 03/25/2018 [facility] ELECTROLYTES Calcium Lvl 8.9 mg/dL 8.5 - 10.5 03/25/2018 [facility] HEMATOLOGY Monocytes 6.9 % 2.0 - 12.0 03/25/[address] [facility] Lymphocytes 27.1 % 20.0 - 40.0 03/25/2018 [facility] HEMATOLOGY Segs 61.1 % 45.0 - 75.0 03/25/[address] [facility] Lymphocytes # 0.6 K/CMM 1.0 - 5.5 03/25/[address] [facility] Segs-Bands # 1.3 K/CMM 1.5 - 8.1 03/25/[address] [facility] Basophils 0.8 % 0.0 - 1.0 03/25/[address] [facility] Eosinophils 4.1 % 0.0 - 4.0 03/25/[address] [facility] Macrocyte 1+ *ABN* (03/25/18 9:04 AM) None Seen 03/25/[address] [facility] Eosinophils # 0.1 K/CMM 0.0 - 0.5 03/25/[address] [facility] Monocytes # 0.1 K/CMM 0.0 - 0.8 03/25/[address] [facility] MPV 8.2 fL 7.4 - 10.4 03/25/[address] [facility] Platelet 143 K/CMM 133 - 450 03/25/[address] [facility] Hgb 9.7 g/dL 12.0 - 16.0 03/25/[address] [facility] MCV 99.2 fL 80.0 - 98.0 03/25/[address] [facility] Hct 29.4 % 36.0 - 48.0 03/25/[address] [facility] MCH 32.7 pg 27.0 - 31.0 03/25/[address] [facility] MCHC 33.0 g/dL 32.0 - 36.0 03/25/2018 [facility] HEMATOLOGY RDW 16.0 % 11.5 - 14.5 03/25/2018 [facility] HEMATOLOGY WBC 2.2 K/CMM 3.7 - 10.4 03/25/2018 [facility] HEMATOLOGY RBC 2.96 M/CMM 4.20 - 5.40 03/25/2018 [facility] SPECIAL CHEMISTRY Hgb A1C 4.5 % <=5.6 % 03/25/2018 [facility] HEMATOLOGY Hct 28.3 % 36.0 - 48.0 03/12/2018 [facility] HEMATOLOGY Hgb 9.3 g/dL 12.0 - 16.0 03/12/2018 [facility] ANEMIA STUDY Ferritin Lvl 404 ng/mL 5 - 204 02/26/2018 [facility] ANEMIA STUDY TIBC 283 ug/dl 228 - 428 02/26/2018 [facility] ANEMIA STUDY Iron 93 ug/dl 30 - 160 02/26/2018 [facility] ANEMIA STUDY % [place] Fe 33 % 12 - 57 02/26/2018 [facility] ANEMIA STUDY UIBC 190 ug/dl 110 - 370 02/26/2018 [facility] CHEM PANEL Glucose Lvl 71 mg/dL 70 - 99 02/26/2018 [facility] CHEM PANEL Chloride Lvl 100 meq/L 95 - 109 02/26/2018 [facility] CHEM PANEL BUN 88 mg/dL 7 - 22 02/26/2018 [facility] CHEM PANEL Creatinine Lvl 4.30 mg/dL 0.50 - 1.40 02/26/2018 [facility] CHEM PANEL Sodium Lvl 138 meq/L 135 - 145 02/26/2018 [facility] CHEM PANEL Potassium Lvl 5.0 meq/L 3.5 - 5.1 02/26/2018 [facility] CHEM PANEL CO2 26 meq/L 24 - 32 02/26/2018 [facility] CHEM PANEL Calcium Lvl 7.9 mg/dL 8.5 - 10.5 02/26/2018 [facility] CHEM PANEL AGAP 17.0 meq/L 10.0 - 20.0 02/26/2018 [facility] CHEM PANEL eGFR 12 mL/min/1.73m2 02/26/2018 Result Comment: The eGFR is calculated using the [...] from the National Kidney Disease Education Program (NKDEP) which additionally recommends that when the eGFR is used in patients with extremes of body mass index for purposes of drug dosing, the eGFR should be multiplied by the estimated BMI. [facility] Platelet 179 K/CMM 133 - 450 02/26/[address] [facility] MPV 8.0 fL 7.4 - 10.4 02/26/[address] [facility] MCH 32.6 pg 27.0 - 31.0 02/26/[address] [facility] MCV 96.9 fL 80.0 - 98.0 02/26/[address] [facility] MCHC 33.6 g/dL 32.0 - 36.0 02/26/[address] [facility] RDW 14.7 % 11.5 - 14.5 02/26/[address] [facility] RBC 3.00 M/CMM 4.20 - 5.40 02/26/[address] [facility] WBC 3.8 K/CMM 3.7 - 10.4 02/26/[address] [facility] Hct 29.0 % 36.0 - 48.0 02/26/[address] [facility] Hgb 9.8 g/dL 12.0 - 16.0 02/26/[address] [facility] Basophils 0.7 % 0.0 - 1.0 02/26/[address] [facility] Segs-Bands # 2.8 K/CMM 1.5 - 8.1 02/26/[address] [facility] Lymphocytes # 0.8 K/CMM 1.0 - 5.5 02/26/[address] [facility] Eosinophils 3.0 % 0.0 - 4.0 02/26/[address] [facility] Monocytes # 0.1 K/CMM 0.0 - 0.8 02/26/[address] [facility] Eosinophils # 0.1 K/CMM 0.0 - 0.5 02/26/[address] [facility] Monocytes 2.0 % 2.0 - 12.0 02/26/[address] [facility] Lymphocytes 20.0 % 20.0 - 40.0 02/26/[address] [facility] Segs 74.3 % 45.0 - 75.0 02/26/2018 [facility] Ankle wo contrast MRI Ankle wo contrast MRI INDICATION: Lateral ankle pain, palpable abnormality near the lateral malleolus COMPARISON: None TECHNIQUE: Multiplanar noncontrast imaging of the right ankle. FINDINGS: Alignment: Normal. MEDIAL COMPARTMENT: Posterior tibial, flexor hallucis longus, flexor digitorum longus tendons: Intact. Minimal tenosynovitis of both tendons posterior to the malleolus. Deltoid ligament complex (superficial/deep): Normal. Spring ligament: Normal. LATERAL COMPARTMENT: Peroneus longus and brevis tendons: Normal. Anterior inferior tibiofibular, posterior inferior tibiofibular, anterior talofibular ligaments: Normal. Calcaneofibular ligament: Normal. POSTERIOR COMPARTMENT: Achilles tendon: Normal. Plantar fascia: Middle cord mildly thickened and slightly edematous at the origin with associated small plantar calcaneal enthesophyte without edema. ANTERIOR COMPARTMENT: Anterior tibial, extensor hallucis longus, extensor digitorum longus tendons: Normal. GENERAL: Bones: Mild degenerative changes at the 3rd and 4th tarsometatarsal joints. Muscles: Normal. Cartilage: Normal. Tarsal tunnel: Normal. Sinus tarsi: Normal. IMPRESSION: 1. No acute injury or mass identified at the level of the lateral malleolus. Mild peroneus longus brevis and peroneus longus tenosynovitis posterior to the malleolus. 2. Mild acute on chronic plantar fasciitis. SL: [id number] 12/25/2017 - - Read by: Bk Barrera MD Dictated Date/time: 12/25/17 18:39 Electronically Signed by: Bk Barrera MD 12/25/17 23:17 FINAL REPORT [facility] Retroperitoneal Complete US Retroperitoneal Complete US Patient Name: CUCO VAZQUEZ : 1950; Age: 66 years y/o Female MR: [id number] Study: Retroperitoneal Complete US Clinical Indication: chronic renal disease stage IV - chronic renal disease stage IV; Comparison: None TECHNIQUE: Multiple longitudinal and transverse real time sonographic images of the kidneys and urinary bladder are obtained. FINDINGS: KIDNEY: The right kidney measures 8.4 x 3.7 x 5.1cm. The left kidney measures 9.4 x 5.1 x 3.3 cm. Slightly small kidneys. Mild increased cortical echogenicity diffusely. No pelvocaliectasis, nephrolithiasis or renal mass lesion identified bilaterally. BLADDER: Bladder is sonographically unremarkable. Bilateral ureteral jets were not visualized. IMPRESSION: Slightly small kidneys with mild increased renal cortical echogenicity. Consider underlying chronic medical renal disease. No acute findings otherwise. : [id number] 08/12/2017 - - Read by: Harley Mederos MD Dictated Date/time: 08/12/17 11:10 Electronically Signed by: Harley Mederos MD 08/12/17 11:11 FINAL REPORT [facility] Bladder US Bladder US Bladder US CLINICAL HISTORY: chronic renal disease stage IV - chronic renal disease stage IV. COMPARISON: none TECHNIQUE: Grayscale and color Doppler sonographic evaluation of the bladder was performed with standard technique. Static images are submitted for review. FINDINGS: There is normal bladder contour. There is no significant bladder wall thickening. No intraluminal mass is visualized. No extrinsic mass deforming the contour of the bladder is noted. No internal bladder debris. No pelvic ascites. Right ureteral jet is visualized. Nonvisualization of left ureteral jet. The prevoid bladder volume is 153 cc. The post void bladder volume is 0 cc. IMPRESSION: Nonvisualization of left ureteral jet. No other significant sonographic abnormality is noted in the bladder. : [id number] 08/12/2017 - - Read by: Diego Asif MD Dictated Date/time: 08/12/17 13:21 Electronically Signed by: Diego Asif MD 08/12/17 13:52 FINAL REPORT [facility] Biopsy kidney VR Biopsy kidney VR RENAL BIOPSY: HISTORY: Stage IV chronic kidney disease, evaluate for reversible etiology. PROCEDURE: The procedure was done using CT guidance, sterile technique and local anesthetic. DLP 935.27. A 17-gauge guide needle was placed from a right posterior flank approach adjacent to the inferior pole cortex of the right kidney. Four cores of tissue were then obtained using a coaxial 18-gauge cutting needle and placed into Guillermo's and Valerie fixatives for histology and electron microscopy. The tract was embolized with one piece of Gelfoam via the guide needle prior to its removal. Post biopsy CT showed no significant hematoma. The patient tolerated the procedure well without immediate complications, and was transferred to Special Procedures Observation stable condition. [id number] 07/29/2017 - - Read by: Alen Andrew MD Dictated Date/time: 07/29/17 14:23 Electronically Signed by: Alen Andrew MD 07/29/17 14:26 FINAL REPORT [facility] Chest 2 views DX Chest 2 views DX Patient Name: CUCO VAZQUEZ : 1950; Age: 66 years y/o Female MR: [id number] * CHEST, 2 views HISTORY: - r05 cough, COMPARISON: None TECHNIQUE: Frontal and lateral radiographs of the chest were obtained. FINDINGS: There are mild nonspecific interstitial changes, probable chronic nonspecific interstitial changes. Comparison with prior studies, if available, would be helpful. The lungs are clear. There are no pulmonary infiltrates or pleural effusions. There is mild cardiomegaly. There is no overt failure. The regional skeleton is unremarkable. IMPRESSION: 1. No active disease. 2. Mild cardiomegaly. 3. Mild chronic appearing nonspecific interstitial changes. SL: [id number] 07/19/2017 - - Read by: Justin Toledo MD Dictated Date/time: 07/19/17 12:25 Electronically Signed by: Justin Toledo MD 07/19/17 12:25 FINAL REPORT [facility] Stomach emptying NM Stomach emptying NM GASTRIC EMPTYING STUDY: HISTORY: Gastroesophageal reflux disease, dysphagia, difficulty swallowing, burping, nausea COMPARISON: None available. TECHNIQUE: Gastric emptying study is performed using 1.05 mCi of technetium 99m sulfur colloid mixed with food. administered orally. 4 hours of static imaging was performed initially at 30 minute intervals and then out 1 hour intervals in the frontal plane - starting immediately after radiotracer administration. The data was used for gastric emptying calculation/extrapolation. FINDINGS: There is prompt activity identified within the stomach and prompt excretion into the small bowel thereafter. The time to peak is 0 minutes. The T half-life is 77 minutes (normal for solids < 90 minutes). The slope of the excretion curve is within normal limits. % excretion at approximately 29 minutes: 28% % excretion at approximately 59 minutes: 45% % excretion at approximately 89 minutes: 59% % excretion at approximately 118 minutes: 60% % excretion at approximately 180 minutes: 92% % excretion at approximately 238 minutes: 98% IMPRESSION: Normal gastric emptying study. Normal values: % excretion at approximately 60 minutes: 10-70 % % excretion at approximately 120 minutes: greater than 40 % % excretion at approximately 180 minutes: greater than 70 % % excretion at approximately 240 minutes: greater than 90 % SL: [id number] 04/11/2017 - - Read by: Cristian Henry MD Dictated Date/time: 04/11/17 15:40 Electronically Signed by: Cristian Henry MD 04/11/17 15:43 FINAL REPORT [facility] Ankle 3 views DX Ankle 3 views DX Study: Left ankle, 3 views Clinical Indication: Left ankle pain status post fall Comparison: None FINDINGS: Multiple views of the left ankle show an acute, nondisplaced fracture of the tip of the lateral malleolus with severe overlying soft tissue swelling. Ankle mortise is congruent. Medial soft tissue swelling is also noted. Arterial calcifications are seen. IMPRESSION: Acute, nondisplaced fracture of the tip of the lateral malleolus. SL: [id number] 12/05/2015 - - Read by: Jeremie Martinez MD Dictated Date/time: 12/05/15 14:58 Electronically Signed by: Jeremie Martinez MD 12/05/15 14:58 FINAL REPORT [facility] Wrist complete DX Wrist complete DX Study: Left wrist, 3 views Clinical Indication: Left wrist pain status post fall Comparison: None FINDINGS: Multiple views of the left wrist show subtle lucency in the region of the triquetral bone, suspicious for nondisplaced fracture. Overlying soft tissue swelling is seen. Subchondral cystic change in the proximal ulnar lunate is noted. Bones are demineralized. IMPRESSION: Suspected nondisplaced triquetral bone fracture. SL: [id number] 12/05/2015 - - Read by: Jeremie Martinez MD Dictated Date/time: 12/05/15 14:56 Electronically Signed by: Jeremie Martinez MD 12/05/15 14:57 FINAL REPORT [facility] Vital Signs Vital Sign Value Date Comments Source Height 162 cm 01/05/2019 [facility] BMI Calculated 35.58 01/05/2019 [facility] Weight 93.364 01/05/2019 [facility] Weight 184 11/13/2018 [facility] Height 63 11/13/2018 [facility] Temperature Oral (F) 97.1 F 11/13/2018 [facility] Heart Rate 82 11/13/2018 [facility] Diastolic (mm Hg) 70 11/13/2018 [facility] Systolic (mm Hg) 116 11/13/2018 [facility] Height 162 cm 10/13/2018 [facility] Weight 88.9 10/13/2018 [facility] BMI Calculated 33.87 10/13/2018 [facility] Weight 196.8 08/14/2018 [facility] Height 63 08/14/2018 [facility] Temperature Oral (F) 97.0 F 08/14/2018 [facility] Heart Rate 80 08/14/2018 [facility] Diastolic (mm Hg) 58 08/14/2018 [facility] Systolic (mm Hg) 100 08/14/2018 [facility] Weight 193.2 07/01/2018 [facility] Height 63 07/01/2018 [facility] Temperature Oral (F) 97.0 F 07/01/2018 [facility] Heart Rate 74 07/01/2018 [facility] Diastolic (mm Hg) 72 07/01/2018 [facility] Systolic (mm Hg) 118 07/01/2018 [facility] Respitory Rate 18 06/04/2018 [facility] Temperature Oral (F) 98.4 F 06/04/2018 [facility] Systolic (mm Hg) 132 06/04/2018 [facility] Diastolic (mm Hg) 82 06/04/2018 [facility] Heart Rate 72 06/04/2018 [facility] Systolic (mm Hg) 102 05/21/2018 [facility] Diastolic (mm Hg) 71 05/21/2018 [facility] Heart Rate 71 05/21/2018 [facility] Respitory Rate 18 05/21/2018 [facility] Temperature Oral (F) 98.1 F 05/21/2018 [facility] BMI Calculated 36.39 05/21/2018 [facility] Weight 96.1 05/21/2018 [facility] Height 162.5 cm 05/21/2018 [facility] Weight 205 05/14/2018 [facility] Height 63 05/14/2018 [facility] Temperature Oral (F) 96.4 F 05/14/2018 [facility] Heart Rate 72 05/14/2018 [facility] Diastolic (mm Hg) 76 05/14/2018 [facility] Systolic (mm Hg) 110 05/14/2018 [facility] Heart Rate 71 05/07/2018 [facility] Temperature Oral (F) 97.9 F 05/07/2018 [facility] Respitory Rate 18 05/07/2018 [facility] Systolic (mm Hg) 101 05/07/2018 [facility] Diastolic (mm Hg) 66 05/07/2018 [facility] BMI Calculated 36.39 05/06/2018 [facility] Weight 96.1 05/06/2018 [facility] Height 162.5 cm 05/06/2018 [facility] BMI Calculated 36.39 04/23/2018 [facility] Weight 96.1 04/23/2018 [facility] Height 162.5 cm 04/23/2018 [facility] BMI Calculated 36.39 04/09/2018 [facility] Weight 96.1 04/09/2018 [facility] Height 162.5 cm 04/09/2018 [facility] Systolic (mm Hg) 121 03/28/2018 [facility] Diastolic (mm Hg) 61 03/28/2018 [facility] Systolic (mm Hg) 114 03/28/2018 [facility] Diastolic (mm Hg) 65 03/28/2018 [facility] Respitory Rate 14 03/28/2018 [facility] Systolic (mm Hg) 122 03/28/2018 [facility] Diastolic (mm Hg) 76 03/28/2018 [facility] Respitory Rate 17 03/28/2018 [facility] Respitory Rate 12 03/28/2018 [facility] BMI Calculated 37.39 03/25/2018 [facility] Height 167.64 cm 03/25/2018 [facility] Weight 105.085 03/25/2018 [facility] Heart Rate 70 03/12/2018 [facility] Temperature Oral (F) 98.2 F 03/12/2018 [facility] Respitory Rate 18 03/12/2018 [facility] Systolic (mm Hg) 110 03/12/2018 [facility] Diastolic (mm Hg) 71 03/12/2018 [facility] Heart Rate 82 02/26/2018 [facility] Respitory Rate 18 02/26/2018 [facility] Temperature Oral (F) 97.4 F 02/26/2018 [facility] Systolic (mm Hg) 115 02/26/2018 [facility] Diastolic (mm Hg) 72 02/26/2018 [facility] Height 162.5 cm 02/26/2018 [facility] BMI Calculated 36.39 02/26/2018 [facility] Weight 96.1 02/26/2018 [facility] Weight 211.8 02/11/2018 [facility] Height 63 02/11/2018 [facility] Temperature Oral (F) 96.9 F 02/11/2018 [facility] Heart Rate 74 02/11/2018 [facility] Diastolic (mm Hg) 60 02/11/2018 [facility] Systolic (mm Hg) 102 02/11/2018 [facility] Weight 204.3 11/14/2017 [facility] Height 63 11/14/2017 [facility] Temperature Oral (F) 95.5 F 11/14/2017 [facility] Heart Rate 70 11/14/2017 [facility] Diastolic (mm Hg) 60 11/14/2017 [facility] Systolic (mm Hg) 106 11/14/2017 [facility] Weight 203 08/06/2017 [facility] Height 63 08/06/2017 [facility] Temperature Oral (F) 97.8 F 08/06/2017 [facility] Heart Rate 72 08/06/2017 [facility] Diastolic (mm Hg) 62 08/06/2017 [facility] Systolic (mm Hg) 108 08/06/2017 [facility] Height 167.64 cm 07/29/2017 [facility] BMI Calculated 32.67 07/29/2017 [facility] Weight 91.818 07/29/2017 [facility] Systolic (mm Hg) 127 04/24/2017 [facility] Diastolic (mm Hg) 88 04/24/2017 [facility] Respitory Rate 16 04/24/2017 [facility] Height 167.64 cm 04/24/2017 [facility] Weight 83.636 04/24/2017 [facility] BMI Calculated 29.76 04/24/2017 [facility] Temperature Oral (F) 97.6 F 12/05/2015 [facility] Systolic (mm Hg) 140 12/05/2015 [facility] Diastolic (mm Hg) 76 12/05/2015 [facility] Heart Rate 77 12/05/2015 [facility] Respitory Rate 15 12/05/2015 [facility] Weight 82.727 12/05/2015 [facility] BMI Calculated 31.31 12/05/2015 [facility] Temperature Oral (F) 99.0 F 12/05/2015 [facility] Respitory Rate 18 12/05/2015 [facility] Height 162.56 cm 12/05/2015 [facility] Systolic (mm Hg) 149 12/05/2015 [facility] Diastolic (mm Hg) 100 12/05/2015 [facility] Heart Rate 101 12/05/2015 [facility] Encounters Location Location Details Encounter Type Encounter Number Reason For Visit Attending Provider ADM Date DC Date Status Source [facility] [id number] Bill Tello 12/05/2015 12/05/2015 [facility] OP Therapy Patients [id number] Alen Nicole 05/08/2016 06/07/2016 [facility] Outpatient [id number] Saman Palmermacie 04/11/2017 04/12/2017 [facility] Bedded Outpatient [id number] Saman Porsha 04/24/2017 04/24/2017 [facility] Outpatient [id number] Srinivasa Assouad 07/19/2017 07/20/2017 [facility] Outpatient [id number] Srinivasa Assouad 07/29/2017 07/30/2017 [facility] Outpatient [id number] Srinivasa Assouad 08/12/2017 08/13/2017 [facility] Outpatient [id number] Humphrey Lowery 12/25/2017 12/26/2017 [facility] Recurring [id number] Srinivasa Giselleoucleve 02/26/2018 03/28/2018 [facility] Day Surgery [id number] Humphrey Lowery 03/28/2018 03/28/2018 [facility] Recurring [id number] Srinivasa Assouad 04/09/2018 05/09/2018 [facility] Recurring [id number] Srinivasa Assouad 05/21/2018 06/20/2018 [facility] Recurring [id number] Srinivasa Assouad 10/27/2018 11/26/2018 [facility] Recurring [id number] Srinivasa Assouad 12/08/2018 01/07/2019 [facility] Procedures Procedure Code Date Perfomer Comments Source Hysterectomy [id number] [facility] Colonoscopy [id number] [facility] Esophagoduodenostomy [id number] [facility]
--- OUTSIDE RECORDS SUMMARY | 2019-01-23 15:56 | XMS REPORT | Summary of Care ---
Author Author [facility] Organization [facility] Address Unknown Phone Unavailable Encounter KAREN Lawrence(RICHARD) [id number] Date(s): 12/05/15 - 12/05/15 [facility] [address] [place] [address]- Discharge Diagnosis: Nondisplaced fracture of triquetrum [cuneiform] bone, left wrist, initial encounter for closed fracture Discharge Diagnosis: Nondisplaced fracture of lateral malleolus of left fibula, initial encounter for closed fracture Discharge Disposition: Home Attending Physician: Bill Tello DO Vital Signs Most recent to 1 2 oldest [Reference Range]: Height 162.56 cm (12/05/15 1:28 PM) Temperature Oral 97.6 DegF 99.0 DegF [96.4-99.1 DegF] (12/05/15 5:48 PM) (12/05/15 1:28 PM) Blood Pressure 140/76 mmHg 149/100 mmHg [90-140/60-90 mmHg] (12/05/15 5:48 PM) *HI* (12/05/15 1:28 PM) Respiratory Rate 15 BRMIN 18 BRMIN [14-20 BRMIN] (12/05/15 5:48 PM) (12/05/15 1:28 PM) Peripheral Pulse 77 bpm 101 bpm Rate [60-100 bpm] (12/05/15 5:48 PM) *HI* (12/05/15 1:28 PM) Weight 82.727 kg (12/05/15 1:28 PM) Body Mass Index 31.31 m2 (12/05/15 1:28 PM) Problem List Condition Effective Dates Status Health Status Informant Diabetes(Confirmed) Resolved Allergies, Adverse Reactions, Alerts Substance Reaction Severity Status NKDA Active Medications Motrin 600 mg, 3 tab, Route: PO, Drug form: TAB, ONCE, Dosing Weight 82.727, kg, Priori ty: STAT, Start date: 12/05/15 14:02:00, Stop date: 12/05/15 14:02:00 Notes: (Same as: Advil) Give with food. Start Date: 12/05/15 Stop Date: 12/05/15 Status: Completed [place] 10/325 oral tablet 1 tab, Route: PO, Drug Form: TAB, Dosing Weight 82.727, kg, ONCE, STAT, Start da te: 12/05/15 16:05:00, Stop date: 12/05/15 16:05:00 Start Date: 12/05/15 Stop Date: 12/05/15 Status: Completed [place] 5/325 oral tablet 1 tab, PO, Q4-6H, PRN Pain, X 5 day, # 20 tab, 0 Refill(s) Start Date: 12/05/15 Stop Date: 12/10/15 Status: Ordered tramadol 50 mg oral tablet 50 mg=1 tab, PO, Q4H, PRN as needed for pain, X 7 day, # 24 tab, 0 Refill(s) Start Date: 12/05/15 Stop Date: 12/05/15 Status: Discontinued Results No data available for this section Immunizations No data available for this section Procedures No data available for this section Social History Social History Type Response Smoking Status Never smoker; Exposure to Tobacco Smoke None; Cigarette Smoking Last 365 Days No; Reg Smoking Cessation Counseling No Assessment and Plan No data available for this section
--- OUTSIDE RECORDS SUMMARY | 2019-01-23 15:56 | XMS REPORT ---
Author Author Petros Martin Organization [employer] Address Unknown Phone Unavailable Care Team Providers Care Critical Care Nurse Specialist Name Role Phone Petros Martin CP Unavailable [...] Medications Results No Known Results Summary Purpose [facility] [employer] Submission
--- OUTSIDE RECORDS SUMMARY | 2019-01-23 15:56 | XMS REPORT | Summary of Care ---
Author Author [facility] Organization [facility] Address Unknown Phone Unavailable Encounter HQ Aldor_antoni(RICHARD) [id number] Date(s): 07/19/17 - 07/19/17 [facility] [address] [place] [address]- Discharge Disposition: Home or Self Care Attending Physician: Srinivasa Borrego MD Vital Signs No [...]
--- OUTSIDE RECORDS SUMMARY | 2019-01-23 15:56 | XMS REPORT | Summary of Care ---
Author Author [facility] Organization [facility] Address Unknown Phone Unavailable Encounter KAREN Lawrence(RICHARD) [id number] Date(s): 12/08/18 - 01/06/19 [facility] [address] [place] [address]- Discharge Disposition: Home or Self Care Attending Physician: Srinivasa Borrego MD Referring Physician: Srinivasa Borrego MD Vital Signs Most recent to 1 oldest [Reference Range]: Height 162 cm (01/05/19 10:51 AM) Weight 93.364 kg (01/05/19 10:51 AM) Body Mass Index 35.58 m2 (01/05/19 10:51 AM) Problem List Condition Effective Dates Status Health Status Informant Sarcoidosis, Resolved unspecified(Confirme d) Diabetes(Confirmed) Active 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
--- OUTSIDE RECORDS SUMMARY | 2019-01-23 15:56 | XMS REPORT | Summary of Care ---
Author Author [facility] Organization [facility] Address Unknown Phone Unavailable Encounter KAREN Lawrence(RICHARD) [id number] Date(s): 04/24/17 - 04/24/17 [facility] [address] [place] [address]- Discharge Disposition: Home or Self Care Attending Physician: Saman Story MD Referring Physician: Saman Story MD Vital Signs Most recent to 1 oldest [Reference Range]: Height 167.64 cm (04/24/17 6:40 AM) Blood Pressure 127/88 mmHg [90-140/60-90 mmHg] (04/24/17 7:17 AM) Respiratory Rate 16 BRMIN [14-20 BRMIN] (04/24/17 7:17 AM) Weight 83.636 kg (04/24/17 6:40 AM) Body Mass Index 29.76 m2 (04/24/17 6:40 AM) Problem List Condition Effective Dates Status Health Status Informant Sarcoidosis, Resolved unspecified(Confirme d) Diabetes(Confirmed) Active Hypertension(Confirm Active ed) Arthritis(Confirmed) Active Allergies, Adverse Reactions, Alerts Substance Reaction Severity Status NKDA Active Medications acetaminophen-codeine 300 mg-30 mg oral tablet 1 tab, PO, Q6H, PRN Pain Start Date: 04/23/17 Status: Ordered acetaminophen-codeine 300 mg-30 mg oral tablet 1 tab, PO, Q6H, 0 Refill(s) Start Date: 04/23/17 Stop Date: 04/23/17 Status: Deleted gabapentin 400 mg oral capsule 800 mg=2 cap, PO, TID, # 90 cap, 1 Refill(s) Start Date: 04/23/17 Status: Ordered hydrochlorothiazide-lisinopril 12.5 mg-20 mg oral tablet 1 tab, PO, Daily Start Date: 04/23/17 Status: Ordered Lantus 100 units/mL 20 unit, SUB-Q, Bedtime Start Date: 04/23/17 Status: Ordered methotrexate 2.5 mg, PO, qWeek, 0 Refill(s) Start Date: 04/23/17 Stop Date: 04/23/17 Status: Deleted methotrexate 2.5 mg oral tablet 12.5 mg=5 tab, PO, Q7D Start Date: 04/23/17 Status: Ordered omeprazole 40 mg, PO, Daily, 0 Refill(s) Start Date: 04/23/17 Status: Ordered Requip 0.5 mg oral tablet 0.5 mg=1 tab, PO, TID Start Date: 04/23/17 Status: Ordered simvastatin 20 mg oral tablet 20 mg=1 tab, PO, Bedtime Start Date: 04/23/17 Status: Ordered trospium 20 mg, PO, BID, 0 Refill(s) Start Date: 04/23/17 Stop Date: 04/23/17 Status: Deleted trospium chloride 20 mg oral tablet 20 mg=1 tab, PO, BID Start Date: 04/23/17 Status: Ordered Results No data available for this section [...]
--- OUTSIDE RECORDS SUMMARY | 2019-01-23 15:56 | XMS REPORT ---
Author Author Chelsy Reeder [facility] [employer] Address Unknown Phone Unavailable Care Team Providers Care Respiratory Director Name Role Phone Chelsy Reeder Unavailable Allergies, Adverse Reactions, Alerts Substance Reaction Event Type Clindacin ETZ Info Not Available Drug Allergy Limbrel vomiting Drug Allergy Folic Acid nausea Drug Allergy Tylenol with Codeine Info Not Available Non Drug Allergy Problems Problem Type Condition Code Onset Dates Condition Status Assessment Rheumatoid arthritis with positive rheumatoid factor M05.9 Active Problem Polyarthralgia M25.50 Active Problem Polyarthritis M13.0 Active Assessment Long-term use of high-risk medication Z79.899 Active Assessment Osteopenia M85.80 Active Problem Hip bursitis, left M70.72 Active Problem Osteoporosis M81.0 Active Problem Vitamin D deficiency, unspecified E55.9 Active Problem Long-term use of high-risk medication Z79.899 Active Problem Sarcoidosis, unspecified D86.9 Active Problem Rheumatoid arthritis with positive rheumatoid factor M05.9 Active Problem Osteopenia M85.80 Active Medications Medication Code System Code Instructions Start Date End Date Status Dosage Ish Almendarez [facility] 04000749189 300 UNIT/ML Subcutaneous Active as directed Lisinopril-Hydrochlorothiazide ND 92573835209 20-12.5 MG Orally Once a day Active 1 tablet Folic Acid ND 57416733157 400 MCG Orally Once a day Active 1 tablet Tylenol/Codeine #[address] [facility] 73881990534 300-30 MG Orally TID February 12, 2018 Active 1 tablet as needed Gabapentin ND 54914911293 400 MG Orally Three times a day Active 1 capsule Ropinirole HCl ND 89784041623 0.5 MG Orally Once a day Active 1 tablet 1 to 3 hours before bedtime Vitamin D ND 53331002315 1000 UNIT Orally Once a day Active 1 tablet Methotrexate ND 05457109470 2.5 MG Orally Once a week Active take 5 tablets by mouth every week Vital Signs Date/Time: Nov 14, 2017 BMI 36.19 Index Weight 204.3 lbs Height 63 in Temperature 95.5 F Cardiac Monitoring Heart Rate 70 /min Blood Pressure Diastolic 60 mm Hg Blood Pressure Systolic 106 mm Hg Results No Known Results Summary Purpose [employer] Submission
--- OUTSIDE RECORDS SUMMARY | 2019-01-23 15:56 | XMS REPORT ---
Author Author Humphrey Lowery [facility] [employer] Address Unknown Phone Unavailable Care Team Providers Care Food Processing Chemist Name Role Phone Humphrey Lowery CP Unavailable Allergies No Known Allergies Problems Problem Type Condition Code Onset Dates Condition Status Problem Hammertoe of left foot M20.42 Active Problem Rheumatoid arthritis involving both feet, unspecified rheumatoid factor presence M06.9 Active Problem Hammertoe of right foot M20.41 Active Problem Type 2 diabetes mellitus without complications E11.9 Active Problem Rheumatoid arthritis with rheumatoid factor of right ankle and foot without organ or systems involvement M05.771 Active Problem Plantar fasciitis M72.2 Active Problem custodial current use of insulin Z79.4 Active Problem Lipoma of right lower extremity D17.23 Active Problem Rheumatoid arthritis with rheumatoid factor of left ankle and foot without organ or systems involvement M05.772 Active Problem Lipoma of left lower extremity D17.24 Active Medications No Known Medications Results No Known Results Summary Purpose [employer] Submission
--- OUTSIDE RECORDS SUMMARY | 2019-01-23 15:56 | XMS REPORT | Summary of Care ---
Author Author [facility] Organization [facility] Address Unknown Phone Unavailable Encounter KAREN Lawrence(RICHARD) [id number] Date(s): 02/26/18 - 03/27/18 [facility] [address] [place] [address]- Discharge Disposition: Home or Self Care Attending Physician: Srinivasa Borrego MD Referring Physician: Srinivasa Borrego MD Vital Signs Most recent to 1 2 oldest [Reference Range]: Height 162.5 cm (02/26/18 8:28 AM) Temperature Oral 98.2 DegF 97.4 DegF [96.4-99.1 DegF] (03/12/18 2:40 PM) (02/26/18 2:35 PM) Blood Pressure 110/71 mmHg 115/72 mmHg [90-140/60-90 mmHg] (03/12/18 2:40 PM) (02/26/18 2:35 PM) Respiratory Rate 18 BRMIN 18 BRMIN [14-20 BRMIN] (03/12/18 2:40 PM) (02/26/18 2:35 PM) Peripheral Pulse 70 bpm 82 bpm Rate [60-100 bpm] (03/12/18 2:40 PM) (02/26/18 2:35 PM) Weight 96.1 kg (02/26/18 8:28 AM) Body Mass Index 36.39 m2 (02/26/18 8:28 AM) Problem List Condition Effective Dates Status Health Status Informant Sarcoidosis, Resolved unspecified(Confirme d) Diabetes(Confirmed) Active 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 (Procrit)WASTE: F/P - Red; E -Red MEDICATION WASTE Product Size: 4000 unitProduct Wasted: ___ unit Start Date: 02/26/18 Stop Date: 02/26/18 Status: Completed Procrit 8,000 unit, 2 mL, Route: SUB-Q, Drug form: INJ, ONCALL, Start date: 03/12/18 15: 00:00 CDT, Duration: 6 hr, Stop date: 03/12/18 20:59:00 CDT Notes: (Same as: Procrit) epoetin jose eduardo 4000 unit/1ml VLFor non-dialysis use only . (Procrit)WASTE: F/P - Red; E -Red MEDICATION WASTE Product Size: 4000 unitProduct Wasted: ___ unit Start Date: 03/12/18 Stop Date: 03/12/18 Status: Completed Procrit 8,000 unit, 2 mL, Route: SUB-Q, Drug form: INJ, ONCALL, Start date: 03/26/18 14: 00:00 CDT, Duration: 6 hr, Stop date: 03/26/18 19:59:00 CDT Notes: (Same as: Procrit) epoetin jose eduardo 4000 unit/1ml VLFor non-dialysis use only . (Procrit)WASTE: F/P - Red; E -Red MEDICATION WASTE Product Size: 4000 unitProduct Wasted: ___ unit Start Date: 03/26/18 Stop Date: 03/26/18 Status: Completed Results ELECTROLYTES Most recent to 1 2 oldest [Reference Range]: Sodium Lvl [135-145 138 mEq/L mEq/L] (02/26/18 1:18 PM) Potassium Lvl 5.0 mEq/L [3.5-5.1 mEq/L] (02/26/18 1:18 PM) Chloride Lvl [95-109 100 mEq/L mEq/L] (02/26/18 1:18 PM) CO2 [24-32 mEq/L] 26 mEq/L (02/26/18 1:18 PM) AGAP [10.0-20.0 17.0 mEq/L mEq/L] (02/26/18 1:18 PM) CHEM PANEL Most recent to 1 2 oldest [Reference Range]: Creatinine Lvl 4.30 mg/dL [0.50-1.40 mg/dL] *HI* (02/26/18 1:18 PM) eGFR 12 mL/min/1.73m2 1 *NA* (02/26/18 1:18 PM) BUN [7-22 mg/dL] 88 mg/dL *HI* (02/26/18 1:18 PM) Glucose Lvl [70-99 71 mg/dL mg/dL] (02/26/18 1:18 PM) Calcium Lvl 7.9 mg/dL [8.5-10.5 mg/dL] *LOW* (02/26/18 1:18 PM) 1Result Comment: The eGFR is calculated [...] 2 oldest [Reference Range]: Iron [30-160 ug/dl] 93 ug/dl (02/26/18 1:18 PM) Ferritin Lvl [5-204 404 ng/mL ng/mL] *HI* (02/26/18 1:18 PM) % Satur Fe [12-57 %] 33 % (02/26/18 1:18 PM) UIBC [110-370 ug/dl] 190 ug/dl (02/26/18 1:18 PM) TIBC [228-428 ug/dl] 283 ug/dl (02/26/18 1:18 PM) HEMATOLOGY Most recent to 1 2 oldest [Reference Range]: WBC [3.7-10.4 K/CMM] 3.8 K/CMM (02/26/18 1:18 PM) RBC [4.20-5.40 3.00 M/CMM M/CMM] *LOW* (02/26/18 1:18 PM) Hgb [12.0-16.0 g/dL] 9.3 g/dL 9.8 g/dL *LOW* *LOW* (03/12/18 1:10 PM) (02/26/18 1:18 PM) Hct [36.0-48.0 %] 28.3 % 29.0 % *LOW* *LOW* (03/12/18 1:10 PM) (02/26/18 1:18 PM) MCV [80.0-98.0 fL] 96.9 fL (02/26/18 1:18 PM) MCH [27.0-31.0 pg] 32.6 pg *HI* (02/26/18 1:18 PM) MCHC [32.0-36.0 33.6 g/dL g/dL] (02/26/18 1:18 PM) RDW [11.5-14.5 %] 14.7 % *HI* (02/26/18 1:18 PM) MPV [7.4-10.4 fL] 8.0 fL (02/26/18 1:18 PM) Platelet [133-450 179 K/CMM K/CMM] (02/26/18 1:18 PM) Segs [45.0-75.0 %] 74.3 % (02/26/18 1:18 PM) Lymphocytes 20.0 % [20.0-40.0 %] (02/26/18 1:18 PM) Monocytes [2.0-12.0 2.0 % %] (02/26/18 1:18 PM) Eosinophils [0.0-4.0 3.0 % %] (02/26/18 1:18 PM) Basophils [0.0-1.0 0.7 % %] (02/26/18 1:18 PM) Segs-Bands # 2.8 K/CMM [1.5-8.1 K/CMM] (02/26/18 1:18 PM) Lymphocytes # 0.8 K/CMM [1.0-5.5 K/CMM] *LOW* (02/26/18 1:18 PM) Monocytes # [0.0-0.8 0.1 K/CMM K/CMM] (02/26/18 1:18 PM) Eosinophils # 0.1 K/CMM [0.0-0.5 K/CMM] (02/26/18 1:18 PM) Immunizations No data available for this [...]
--- OUTSIDE RECORDS SUMMARY | 2019-01-23 15:56 | XMS REPORT ---
Author Author Erica Ramirez Organization [employer] Address Unknown Phone Unavailable Care Team Providers Care Toll Line Inspector Name Role Phone Erica Ramirez CP Unavailable Allergies, Adverse Reactions, Alerts Substance Reaction [...] use of high-risk medication Z79.899 Active Problem Hip bursitis, left M70.72 Active Problem Osteoporosis M81.0 Active Problem Vitamin D deficiency, unspecified E55.9 Active Problem Long-term use of high-risk medication Z79.899 Active Problem Sarcoidosis, unspecified D86.9 Active Problem Rheumatoid arthritis with positive rheumatoid factor M05.9 Active Problem Osteopenia M85.80 Active Medications Medication Code System Code Instructions Start Date End Date Status Dosage Gabapentin [facility] 01031642136 400 MG Orally Three times a day Active 1 capsule Omeprazole ND 06402831162 40 MG Orally Once a day Active 1 capsule Methotrexate ND 53822859478 2.5 MG Orally Once a week Active take 5 tablets by mouth every week Vitamin D ND 69236872494 1000 UNIT Orally Once a day Active 1 tablet Folic Acid ND 02255420367 400 MCG Orally Once a day Active 1 tablet Tylenol/Codeine #3 [facility] 69308255047 300-30 MG Orally TID Active 1 tablet as needed Ropinirole HCl ND 01548190169 0.5 MG Orally Once a day Active 1 tablet 1 to 3 hours before bedtime Lasix ND 01235562113 40 MG Orally Once a day Active 1 tablet Lisinopril-Hydrochlorothiazide [facility] 98380973653 20-12.5 MG Orally Once a day Active 1 tablet Vital Signs Date/Time: Aug 06, 2017 BMI 35.96 Index Weight 203 lbs Height 63 in Temperature 97.8 F Cardiac Monitoring Heart Rate 72 /min Blood Pressure Diastolic 62 mm Hg Blood Pressure Systolic 108 mm Hg Results No Known Results Summary Purpose [employer] Submission
--- OUTSIDE RECORDS SUMMARY | 2019-01-23 15:56 | XMS REPORT | Summary of Care ---
Author Author [facility] Organization [facility] Address Unknown Phone Unavailable Encounter KAREN Lawrence(RICHARD) [id number] Date(s): 07/29/17 - 07/29/17 [facility] [address] [place] [address]- Discharge Disposition: Home or Self Care Attending Physician: Srinivasa Borrego MD Referring Physician: Srinivasa Borrego MD Vital Signs Most recent to 1 oldest [Reference Range]: Height 167.64 cm (07/29/17 8:43 AM) Weight 91.818 kg (07/29/17 8:43 AM) Body Mass Index 32.67 m2 (07/29/17 8:43 AM) Problem List Condition Effective Dates Status Health Status Informant Sarcoidosis, Resolved unspecified(Confirme d) Diabetes(Confirmed) Active Hypertension(Confirm Active ed) Arthritis(Confirmed) Active Allergies, Adverse Reactions, Alerts Substance Reaction Severity Status NKDA Active Medications Toujeo SoloStar 300 units/mL subcutaneous solution 15 unit, SUB-Q, Daily, 0 Refill(s) Start Date: 07/29/17 Status: Ordered Results No data available for this section Immunizations No data available for this section Procedures Procedure Date Related Diagnosis Body Site Hysterectomy Social History Social History Type Response Smoking Status Never smoker; Concerns about tobacco use in household: No; Exposure to Tobacco Smoke None; Cigarette Smoking Last 365 Days No; Reg Smoking Cessation Counseling No Assessment and Plan Extracted from: Title: IR Renal Biopsy Author: Alen Andrew MD Date: 07/29/17 PROCEDURE REQUESTED: Renal biopsy REQUESTING PHYSICIAN: Srinivasa Borrego MD (Nephrology) HISTORY/INDICATIONS: Stage IV chronic kidney disease, looking for reversible abnormalities. MEDICAL: Hypertension, diabetes, sarcoidosis, arthropathy PROCEDURAL HISTORY: Hysterectomy MEDICATIONS: Methotrexate, omeprazole, lisinopril/hydrochlorothiazide, simvistatin, ropinirole, trospium, insulin, gabapentin ALLERGIES: No known drug allergies PHYSICAL FINDINGS: BP 137/84 P 70 R 14 Alert, oriented, no acute distress SaO2 100% ETCO2 39 Regular rythym IMPRESSION: Stage IV chronic kidney disease, looking for reversible causes. PLAN: Renal biopsy with CT, site to be determined at time of procedure. Procedure and risks discussed with patient, including bleeding and post procedure pain. ASA: III
--- OUTSIDE RECORDS SUMMARY | 2019-01-23 15:56 | XMS REPORT | Summary of Care ---
Author Author [facility] Organization [facility] Address Unknown Phone Unavailable Encounter KAREN Lawrence(RICHARD) [id number] Date(s): 04/09/18 - 05/08/18 [facility] [address] [place] [address]- [phone] Encounter Diagnosis Chronic kidney disease, unspecified (Final) - 05/14/18 Anemia in chronic kidney disease (Final) - Discharge Disposition: Home or Self Care Attending Physician: Srinivasa Borrego MD Referring Physician: Srinivasa Borrego MD Vital Signs 1 2 3 Most recent to oldest [Reference Range]: 162.5 cm (05/06/18 12:13 PM) 162.5 cm (04/23/18 7:35 AM) 162.5 cm (04/09/18 8:27 AM) Height 97.9 DegF (05/07/18 1:00 PM) Temperature Oral [96.4-99.1 DegF] 101/66 mmHg (05/07/18 1:00 PM) Blood Pressure [90-140/60-90 mmHg] 18 BRMIN (05/07/18 1:00 PM) Respiratory Rate [14-20 BRMIN] 71 bpm (05/07/18 1:00 PM) Peripheral Pulse Rate [60-100 bpm] 96.1 kg (05/06/18 12:13 PM) 96.1 kg (04/23/18 7:35 AM) 96.1 kg (04/09/18 8:27 AM) Weight 36.39 m2 (05/06/18 12:13 PM) 36.39 m2 (04/23/18 7:35 AM) 36.39 m2 (04/09/18 8:27 AM) Body Mass Index Problem List Condition Effective Dates Status Health Status Informant Sarcoidosis, Resolved unspecified(Confirme d) Diabetes(Confirmed) Active 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 (Procrit)WASTE: F/P - Red; E -Red MEDICATION WASTE Product Size: 4000 unitProduct Wasted: ___ unit Start Date: 05/07/18 Stop Date: 05/07/18 Status: Completed Results ELECTROLYTES 1 2 3 Most recent to oldest [Reference Range]: 138 mEq/L (04/23/18 1:08 PM) Sodium Lvl [135-145 mEq/L] 4.6 mEq/L (04/23/18 1:08 PM) Potassium Lvl [3.5-5.1 mEq/L] 101 mEq/L (04/23/18 1:08 PM) Chloride Lvl [95-109 mEq/L] 28 mEq/L (04/23/18 1:08 PM) CO2 [24-32 mEq/L] 13.6 mEq/L (04/23/18 1:08 PM) AGAP [10.0-20.0 mEq/L] CHEM PANEL 1 2 3 Most recent to oldest [Reference Range]: 3.45 mg/dL *HI* (04/23/18 1:08 PM) Creatinine Lvl [0.50-1.40 mg/dL] 15 mL/min/1.73m2 1 *NA* (04/23/18 1:08 PM) eGFR 67 mg/dL *HI* (04/23/18 1:08 PM) BUN [7-22 mg/dL] 87 mg/dL (04/23/18 1:08 PM) Glucose Lvl [70-99 mg/dL] 9.0 mg/dL (04/23/18 1:08 PM) Calcium Lvl [8.5-10.5 mg/dL] 1Result Comment: The eGFR is calculated using [...] tiplied by the estimated BMI. ANEMIA STUDY 1 2 3 Most recent to oldest [Reference Range]: 87 ug/dl (04/23/18 1:02 PM) Iron [30-160 ug/dl] 577 ng/mL *HI* (04/23/18 1:02 PM) Ferritin Lvl [5-204 ng/mL] 31 % (04/23/18 1:02 PM) % Satur Fe [12-57 %] 197 ug/dl (04/23/18 1:02 PM) UIBC [110-370 ug/dl] 284 ug/dl (04/23/18 1:02 PM) TIBC [228-428 ug/dl] HEMATOLOGY 1 2 3 Most recent to oldest [Reference Range]: 3.7 K/CMM (04/23/18 1:02 PM) WBC [3.7-10.4 K/CMM] 3.25 M/CMM *LOW* (04/23/18 1:02 PM) RBC [4.20-5.40 M/CMM] 9.9 g/dL *LOW* (05/07/18 1:03 PM) 10.7 g/dL *LOW* (04/23/18 1:02 PM) 12.2 g/dL (04/09/18 1:41 PM) Hgb [12.0-16.0 g/dL] 30.4 % *LOW* (05/07/18 1:03 PM) 32.3 % *LOW* (04/23/18 1:02 PM) 36.3 % (04/09/18 1:41 PM) Hct [36.0-48.0 %] 99.3 fL *HI* (04/23/18 1:02 PM) MCV [80.0-98.0 fL] 33.0 pg *HI* (04/23/18 1:02 PM) MCH [27.0-31.0 pg] 33.2 g/dL (04/23/18 1:02 PM) MCHC [32.0-36.0 g/dL] 15.3 % *HI* (04/23/18 1:02 PM) RDW [11.5-14.5 %] 7.9 fL (04/23/18 1:02 PM) MPV [7.4-10.4 fL] 150 K/CMM (04/23/18 1:02 PM) Platelet [133-450 K/CMM] 79.4 % *HI* (04/23/18 1:02 PM) Segs [45.0-75.0 %] 14.3 % *LOW* (04/23/18 1:02 PM) Lymphocytes [20.0-40.0 %] 2.1 % (04/23/18 1:02 PM) Monocytes [2.0-12.0 %] 3.5 % (04/23/18 1:02 PM) Eosinophils [0.0-4.0 %] 0.7 % (04/23/18 1:02 PM) Basophils [0.0-1.0 %] 2.9 K/CMM (04/23/18 1:02 PM) Neutrophils # [1.5-8.1 K/CMM] 0.5 K/CMM *LOW* (04/23/18 1:02 PM) Lymphocytes # [1.0-5.5 K/CMM] 0.1 K/CMM (04/23/18 1:02 PM) Monocytes # [0.0-0.8 K/CMM] 0.1 K/CMM (04/23/18 1:02 PM) Eosinophils # [0.0-0.5 K/CMM] 1+ *ABN* (04/23/18 1:02 PM) Macrocyte [None Seen] Immunizations No data available for this section Procedures Procedure Date Related Diagnosis Body Site Status Colonoscopy Completed Esophagoduodenostomy Completed Hysterectomy Completed Social History Social History Type Response Alcohol Never Smoking Status Never smoker; Concerns about tobacco use in household: No; Exposure to Tobacco Smoke None; Cigarette Smoking Last 365 Days No; Reg Smoking Cessation Counseling No entered on: 09/17/18 Assessment and Plan No data available for this section
--- OUTSIDE RECORDS SUMMARY | 2019-01-23 15:56 | XMS REPORT | Summary of Care ---
Author Author [facility] Organization [facility] Address Unknown Phone Unavailable Encounter KAREN Lawrence(RICHARD) [id number] Date(s): 10/27/18 - 11/25/18 [facility] [address] [place] [address]- Discharge Disposition: Home or Self Care Attending Physician: Srinivasa Borrego MD Referring Physician: Srinivasa Borrego MD Vital Signs Most recent to 1 oldest [Reference Range]: Height 162 cm (10/13/18 12:03 PM) Weight 88.9 kg (10/13/18 12:03 PM) Body Mass Index 33.87 m2 (10/13/18 12:03 PM) Problem List Condition Effective Dates Status Health Status Informant Sarcoidosis, Resolved unspecified(Confirme d) Diabetes(Confirmed) Active 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) Hypertension(Confirm Active ed) Arthritis(Confirmed) Active Allergies, Adverse Reactions, Alerts Substance Reaction Severity Status NKDA Active Medications No data available for this section Results ANEMIA STUDY Most recent to 1 oldest [Reference Range]: Iron [30-160 ug/dl] 90 ug/dl (10/27/18 1:48 PM) Ferritin Lvl [5-204 902 ng/mL ng/mL] *HI* (10/27/18 1:48 PM) % Satur Fe [12-57 %] 43 % (10/27/18 1:48 PM) UIBC [110-370 ug/dl] 120 ug/dl (10/27/18 1:48 PM) TIBC [228-428 ug/dl] 210 ug/dl *LOW* (10/27/18 1:48 PM) HEMATOLOGY Most recent to 1 oldest [Reference Range]: WBC [3.7-10.4 K/CMM] 5.8 K/CMM (10/27/18 1:48 PM) RBC [4.20-5.40 3.02 M/CMM M/CMM] *LOW* (10/27/18 1:48 PM) Hgb [12.0-16.0 g/dL] 10.1 g/dL *LOW* (10/27/18 1:48 PM) Hct [36.0-48.0 %] 29.4 % *LOW* (10/27/18 1:48 PM) MCV [80.0-98.0 fL] 97.4 fL (10/27/18 1:48 PM) MCH [27.0-31.0 pg] 33.4 pg *HI* (10/27/18 1:48 PM) MCHC [32.0-36.0 34.3 g/dL g/dL] (10/27/18 1:48 PM) RDW [11.5-14.5 %] 16.3 % *HI* (10/27/18 1:48 PM) MPV [7.4-10.4 fL] 7.9 fL (10/27/18 1:48 PM) Platelet [133-450 225 K/CMM K/CMM] (10/27/18 1:48 PM) Segs [45.0-75.0 %] 72.1 % (10/27/18 1:48 PM) Lymphocytes 17.9 % [20.0-40.0 %] *LOW* (10/27/18 1:48 PM) Monocytes [2.0-12.0 6.3 % %] (10/27/18 1:48 PM) Eosinophils [0.0-4.0 3.1 % %] (10/27/18 1:48 PM) Basophils [0.0-1.0 0.6 % %] (10/27/18 1:48 PM) Neutrophils # 4.2 K/CMM [1.5-8.1 K/CMM] (10/27/18 1:48 PM) Lymphocytes # 1.0 K/CMM [1.0-5.5 K/CMM] (10/27/18 1:48 PM) Monocytes # [0.0-0.8 0.4 K/CMM K/CMM] (10/27/18 1:48 PM) Eosinophils # 0.2 K/CMM [0.0-0.5 K/CMM] (10/27/18 1:48 PM) Immunizations No data available for this [...]
--- OUTSIDE RECORDS SUMMARY | 2019-01-23 15:57 | XMS REPORT ---
Author Author Chelsy Reeder [facility] eClinicalWorks Address Unknown Phone Unavailable Care Team Providers Care Fisherman Helper Name Role Phone Chelsy Reeder Unavailable Allergies, [...] Active Problem Sarcoidosis, unspecified D86.9 Active Problem Primary osteoarthritis of right knee M17.11 Active Problem Vitamin D deficiency, unspecified E55.9 Active Problem Primary osteoarthritis of left knee M17.12 Active Problem Long-term use of high-risk medication Z79.899 Active Problem Osteopenia M85.80 Active Problem Hip bursitis, left M70.72 Active Problem Osteoporosis M81.0 Active Assessment Long-term use of high-risk medication Z79.899 Active Assessment Rheumatoid arthritis with positive rheumatoid factor M05.9 Active Assessment Primary osteoarthritis of left knee M17.12 Active Assessment Osteoporosis M81.0 Active Problem Polyarthritis M13.0 Active Medications Medication Code System Code Instructions Start Date End Date Status Dosage Ropinirole HCl ND 46902524442 0.5 MG Orally Once a day Active 1 tablet 1 to 3 hours before bedtime Gabapentin ND 71031709707 400 MG Orally Three times a day Active 1 capsule Lisinopril-Hydrochlorothiazide ND 75234946499 20-12.5 MG Orally Once a day Active 1 tablet Folic Acid ND 80955795646 400 MCG Orally Once a day Active 1 tablet Prolia [facility] 62408329412 60 MG/ML Subcutaneous Nov 13, 2018 Active as directed Tylenol/Codeine #3 [facility] 39704297371 300-30 MG Orally TID Oct 08, 2018 Active 1 tablet as needed Methotrexate ND 47154732142 2.5 MG Orally once a week Active 5 tablets Bumetanide ND 04122065136 1 MG Orally once a day Active 1 tablet Vital Signs Date/Time: Nov 13, 2018 BMI 32.59 Index Weight 184 lbs Height 63 in Temperature 97.1 F Cardiac Monitoring Heart Rate 82 /min Blood Pressure Diastolic 70 mm Hg Blood Pressure Systolic 116 mm Hg Results No Known Results Summary Purpose eClinicalWorks Submission
--- OUTSIDE RECORDS SUMMARY | 2019-01-23 15:57 | XMS REPORT ---
Author Author Chelsy Reeder [facility] eClinicalWorks Address Unknown Phone Unavailable Care Team Providers Care Biomedical Engineering Internship Name Role Phone Chelsy Reeder Unavailable Allergies, [...] Start Date End Date Status Dosage Methotrexate [facility] 74465107114 2.5 MG Orally once a week Nov 25, 2017 Active 5 tablets Folic Acid [facility] 05453587606 400 MCG Orally Once a day Active 1 tablet Bumetanide [facility] 61681580909 1 MG Orally once a day Active 1 tablet Tylenol/Codeine #3 [facility] 87676024376 300-30 MG Orally TID Active 1 tablet as needed Lisinopril-Hydrochlorothiazide [facility] 62818205476 20-12.5 MG Orally Once a day Active 1 tablet Vitamin D [facility] 49110404749 1000 UNIT Orally Once a day Active 1 tablet Ropinirole HCl [facility] 31046160545 0.5 MG Orally Once a day Active 1 tablet 1 to 3 hours before bedtime Gabapentin ND 96407028847 400 MG Orally Three times a day Active 1 capsule Vital Signs Date/Time: February 11, 2018 BMI 37.51 Index Weight 211.8 lbs Height 63 in Temperature 96.9 F Cardiac Monitoring Heart Rate 74 /min Blood Pressure Diastolic 60 mm Hg Blood Pressure Systolic 102 mm Hg Results No Known Results Summary Purpose eClinicalWorks Submission
--- OUTSIDE RECORDS SUMMARY | 2019-01-23 15:57 | XMS REPORT ---
Author Author Chelsy Reeder [facility] eClinicalWorks Address Unknown Phone Unavailable Care Team Providers Care Compliance Engineer Name Role Phone Chelsy Reeder Unavailable Allergies, [...] M70.72 Active Problem Osteoporosis M81.0 Active Assessment nursing home (current) use of opiate analgesic Z79.891 Active Assessment Rheumatoid arthritis with positive rheumatoid factor M05.9 Active Assessment Primary osteoarthritis of left knee M17.12 Active Assessment Long-term use of high-risk medication Z79.899 Active Problem Polyarthritis M13.0 Active Medications Medication Code System Code Instructions Start Date End Date Status Dosage Gabapentin [facility] 76975557180 400 MG Orally Three times a day Active 1 capsule Lisinopril-Hydrochlorothiazide [facility] 04749123492 20-12.5 MG Orally Once a day Active 1 tablet Vitamin D [facility] 92218023274 1000 UNIT Orally Once a day Active 1 tablet Tylenol/Codeine #3 [facility] 55765897182 300-30 MG Orally TID Sep 29, 2018 Active 1 tablet as needed Basaglar KwikPen [facility] 92827930442 100 UNIT/ML Subcutaneous once a day at bedtime Active 15 units Folic Acid [facility] 81342321486 400 MCG Orally Once a day Active 1 tablet Ropinirole HCl [facility] 53127250560 0.5 MG Orally Once a day Active 1 tablet 1 to 3 hours before bedtime Bumetanide [facility] 00158087496 1 MG Orally once a day Active 1 tablet Methotrexate [facility] 54538834615 2.5 MG Orally once a week Active 5 tablets Vital Signs Date/Time: Jul 01, 2018 BMI 34.22 Index Weight 193.2 lbs Height 63 in Temperature 97.0 F Cardiac Monitoring Heart Rate 74 /min Blood Pressure Diastolic 72 mm Hg Blood Pressure Systolic 118 mm Hg Results No Known Results Summary Purpose eClinicalWorks Submission
--- OUTSIDE RECORDS SUMMARY | 2019-01-23 15:57 | XMS REPORT ---
Author Author Petros Martin Organization eClinicalWorks Address Unknown Phone Unavailable Care Team Providers Care Insurance Verification Clerk Name Role Phone Petros Martin CP Unavailable Allergies No Known Allergies Problems Problem Type Condition Code Onset Dates Condition Status Problem Polyarthritis M13.0 Active Problem Sarcoidosis, unspecified D86.9 Active Problem Polyarthralgia M25.50 Active Problem Vitamin D deficiency, unspecified E55.9 Active Problem Hip bursitis, left M70.72 Active Problem Primary osteoarthritis of right knee M17.11 Active Problem Osteopenia M85.80 Active Problem Rheumatoid arthritis with positive rheumatoid factor M05.9 Active Problem Osteoporosis M81.0 Active Problem Long-term use of high-risk medication Z79.899 Active Medications No Known Medications Results No Known Results Summary Purpose eClinicalWorks Submission
--- OUTSIDE RECORDS SUMMARY | 2019-01-23 15:57 | XMS REPORT ---
Author Author Chelsy Reeder [facility] eClinicalWorks Address Unknown Phone Unavailable Care Team Providers Care Fancy Stitcher Name Role Phone Chelsy Reeder CP Unavailable Allergies, Adverse Reactions, Alerts Substance [...] with positive rheumatoid factor M05.9 Active Assessment Decreased renal function N28.9 Active Assessment Anemia D64.9 Active Problem Polyarthritis M13.0 Active Medications Medication Code System Code Instructions Start Date End Date Status Dosage Cecile ReynaPen [facility] 83870685736 100 UNIT/ML Subcutaneous once a day at bedtime Active 15 units Lisinopril-Hydrochlorothiazide [facility] 18458177306 20-12.5 MG Orally Once a day Active 1 tablet Vitamin D ND 57790719835 1000 UNIT Orally Once a day Active 1 tablet Methotrexate ND 73508816854 2.5 MG Orally once a week Active 5 tablets Gabapentin ND 90786760853 400 MG Orally Three times a day Active 1 capsule Folic Acid [facility] 09508673838 400 MCG Orally Once a day Active 1 tablet Ropinirole HCl [facility] 76940049566 0.5 MG Orally Once a day Active 1 tablet 1 to 3 hours before bedtime Bumetanide [facility] 80803407474 1 MG Orally once a day Active 1 tablet Tylenol/Codeine #3 [facility] 42759664770 300-30 MG Orally TID Sep 29, 2018 Active 1 tablet as needed Vital Signs Date/Time: Aug 14, 2018 BMI 34.86 Index Weight 196.8 lbs Height 63 in Temperature 97.0 F Cardiac Monitoring Heart Rate 80 /min Blood Pressure Diastolic 58 mm Hg Blood Pressure Systolic 100 mm Hg Results No Known Results Summary Purpose eClinicalWorks Submission
--- OUTSIDE RECORDS SUMMARY | 2019-01-23 15:57 | XMS REPORT ---
Author Author Petros Martin Organization eClinicalWorks Address Unknown Phone Unavailable Care Team Providers Care General Road Production Manager Name Role Phone Petros Martin CP Unavailable [...]
--- OUTSIDE RECORDS SUMMARY | 2019-01-23 15:57 | XMS REPORT ---
Author Author Chelsy Reeder [facility] eClinicalWorks Address Unknown Phone Unavailable Care Team Providers Care Dairy Worker Name Role Phone Chelsy Reeder Unavailable Allergies, [...] use of high-risk medication Z79.899 Active Assessment Primary osteoarthritis of right knee M17.11 Active Assessment Long-term use of high-risk medication Z79.899 Active Assessment Rheumatoid arthritis with positive rheumatoid factor M05.9 Active Medications Medication Code System Code Instructions Start Date End Date Status Dosage Bumetanide [facility] 65098563559 1 MG Orally once a day Active 1 tablet Basaglar KwikPen [facility] 76207994695 100 UNIT/ML Subcutaneous once a day at bedtime Active 15 units Tylenol/Codeine #[address] [facility] 43269122875 300-30 MG Orally TID Active 1 tablet as needed Vitamin D [facility] 94048021646 1000 UNIT Orally Once a day Active 1 tablet Lisinopril-Hydrochlorothiazide [facility] 46404766855 20-12.5 MG Orally Once a day Active 1 tablet Gabapentin [facility] 44733423816 400 MG Orally Three times a day Active 1 capsule Ropinirole HCl [facility] 34722280525 0.5 MG Orally Once a day Active 1 tablet 1 to 3 hours before bedtime Methotrexate [facility] 87631460145 2.5 MG Orally once a week Active 5 tablets Folic Acid [facility] 41674484952 400 MCG Orally Once a day Active 1 tablet Vital Signs Date/Time: May 14, 2018 BMI 36.31 Index Weight 205 lbs Height 63 in Temperature 96.4 F Cardiac Monitoring Heart Rate 72 /min Blood Pressure Diastolic 76 mm Hg Blood Pressure Systolic 110 mm Hg Results No Known Results Summary Purpose eClinicalWorks Submission
--- OUTSIDE RECORDS SUMMARY | 2019-01-23 15:57 | XMS REPORT ---
Author Author Petros Martin Organization eClinicalWorks Address Unknown Phone Unavailable Care Team Providers Care Wedding Decorator Name Role Phone Petros Martin CP Unavailable [...]
--- OUTSIDE RECORDS SUMMARY | 2019-01-23 15:57 | XMS REPORT ---
Author Author Petros Martin Organization [employer]ClinicalWorks Address Unknown Phone Unavailable Care Team Providers Care Durability Engineer Name Role Phone Petros Martin CP Unavailable [...]
--- OUTSIDE RECORDS SUMMARY | 2019-01-23 15:57 | XMS REPORT ---
Author Author Petros Martin Organization eClinicalWorks Address Unknown Phone Unavailable Care Team Providers Care Bread Icer Name Role Phone Petros Martin CP Unavailable [...] Medications Results No Known Results Summary Purpose [employer] Submission
--- OUTSIDE RECORDS SUMMARY | 2019-01-23 15:57 | XMS REPORT ---
Author Author Humphrey Lowery [facility] eClinicalWorks Address Unknown Phone Unavailable Care Team Providers Care Tire Shop Manager Name Role Phone Humphrey Lowery CP Unavailable Allergies No Known Allergies Problems Problem Type Condition Code Onset Dates Condition Status Problem Rheumatoid arthritis with rheumatoid factor of right ankle and foot without organ or systems involvement M05.771 Active Problem Hammertoe of left foot M20.42 Active Problem Type 2 diabetes mellitus without complications E11.9 Active Problem Plantar fasciitis M72.2 Active Problem Rheumatoid arthritis with rheumatoid factor of left ankle and foot without organ or systems involvement M05.772 Active Problem Chronic kidney disease, stage 4 (severe) N18.4 Active Problem 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
--- OUTSIDE RECORDS SUMMARY | 2019-01-23 15:57 | XMS REPORT ---
Author Author Petros Martin Organization eClinicalWorks Address Unknown Phone Unavailable Care Team Providers Care Wellness Nurse Rn Name Role Phone Petros Martin CP Unavailable [...]
--- OUTSIDE RECORDS SUMMARY | 2019-01-23 15:57 | XMS REPORT ---
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
--- OUTSIDE RECORDS SUMMARY | 2019-01-23 15:57 | XMS REPORT ---
Author Author Petros Martin Organization eClinicalWorks Address Unknown Phone Unavailable Care Team Providers Care Thresher Broomcorn Name Role Phone Petros Martin CP Unavailable [...] Start Date End Date Status Dosage Methotrexate [facility] 46784668975 2.5 MG Orally Once a week Aug 12, 2018 Active take 5 tablets by mouth every week Results No Known Results Summary Purpose eClinicalWorks Submission
--- OUTSIDE RECORDS SUMMARY | 2019-01-23 15:57 | XMS REPORT ---
Author Author Petros Martin Organization eClinicalWorks Address Unknown Phone Unavailable Care Team Providers Care Lab Rn Name Role Phone Petros Martin CP [...]
--- OUTSIDE RECORDS SUMMARY | 2019-01-23 15:57 | XMS REPORT ---
Author Author Chelsy Reeder [facility] eClinicalWorks Address Unknown Phone Unavailable Care Team Providers Care Assistant To The Dean Name Role Phone Chelsy Reeder Unavailable Allergies No Known Allergies Problems Problem [...] Instructions Start Date End Date Status Dosage Tylenol/Codeine #3 [facility] 97746857679 300-30 MG Orally TID Oct 08, 2018 Active 1 tablet as needed Results No Known Results Summary Purpose eClinicalWorks Submission
[2019-01-23] MEDS ORDERED: CLINDAMYCIN PHOS 900MG/ 50ML 50 ML IV ONE (16:30)
[2019-01-23] MEDS ORDERED: LIDOCAINE VISC 2% SOLN 15 ML UDC PO ONE (16:30)
[2019-01-23 17:06] LABS: EOSINOPHILS % 3.4 % (0.0-6.0); LYMPHOCYTES # (AUTO) 0.5 (1.0-3.2); LYMPHOCYTES % 45.8 % (18.0-39.1); MEAN CORPUSCULAR HEMOGLOBIN 33.5 pg (28-32); MEAN CORPUSCULAR HGB CONC 31.9 g/dL (31-35); MEAN CORPUSCULAR VOLUME 104.9 fL (81-99); MONOCYTES % 0.8 % (4.4-11.3); NEUTROPHILS # (AUTO) 0.6 (2.1-6.9); NEUTROPHILS % 49.2 % (38.7-80.0); RED BLOOD COUNT 2.03 x10e6/uL (3.6-5.1)
[2019-01-23 17:10] LABS: INR 0.97; PROTHROMBIN TIME 13.4 seconds (11.9-14.5)
[2019-01-23 17:11] LABS: PARTIAL THROMBOPLASTIN TIME 27.3 seconds (23.8-35.5)
[2019-01-23 17:13] LABS: HEMATOCRIT 21.3 % (34.2-44.1); HEMOGLOBIN 6.8 g/dL (12.0-16.0); PLATELET COUNT 4 x10e3/uL (140-360)
[2019-01-23 17:18] LABS: ANION GAP 15.8 mmol/L (8-16); CALCIUM 7.8 mg/dL (8.4-10.2); CREATININE, SERUM 2.88 mg/dL (0.57-1.11); POTASSIUM 4.8 mmol/L (3.5-5.1)
[2019-01-23 17:28] LABS: EOSINOPHILS % (MANUAL) 4 % (0-7); HYPOCHROMASIA SLIGHT; LYMPHOCYTES % (MANUAL) 42 % (19-48); NEUTROPHILS % (MANUAL) 44 % (40-74); NUCLEATED RED BLOOD CELLS 1; PLATELET ESTIMATE MARKEDLY DECREASED; PLATELET MORPHOLOGY COMMENT FEW LARGE; RBC MORPHOLOGY COMMENT NORMAL
--- NOTE | 2019-01-23 18:22 | Diagnostic Imaging Report ---
Examination: Single AP view of the chest. COMPARISON: None. INDICATION: Blisters in mouth DISCUSSION: Lines/tubes: None. Lungs: The lungs are well inflated and clear. No pneumonia or pulmonary edema. Pleura: No pleural effusion or pneumothorax. Heart and mediastinum: Prominent heart size. Bones and soft tissues: No acute bony abnormalities. Degenerative changes in the thoracic spine. IMPRESSION: 1. No acute cardiopulmonary abnormalities. Signed by: Dr. Cristian Khan M.D. on 01/23/2019 6:19 PM
--- NOTE | 2019-01-23 18:24 | Diagnostic Imaging Report ---
History:Low platelets Comparison studies:None Technique: Axial images were obtained from the skull base to the vertex. Coronal and sagittal images reconstructed from the axial data. Intravenous contrast: None Dose modulation, iterative reconstruction, and/or weight based adjustment of the mA/kV was utilized to reduce the radiation dose to as low as reasonably achievable. Findings: Scalp/skull: No abnormalities. Extra-axial spaces: No masses. No fluid collections. Brain sulci: Mildly prominent. Ventricles: Mild compensatory dilatation. No hydrocephalus. Parenchyma: Few hypodensities in the supratentorial white matter are small vessel ischemic changes. No masses, hemorrhage, acute or chronic cortical vascular insults. Sellar/suprasellar region: No abnormalities. Craniocervical junction: Patent foramen magnum. No Chiari one malformation. Incidental findings: Atherosclerotic calcifications in the carotid siphons . Impression: No acute abnormalities. Chronic findings: 1. Mild generalized volume loss. 2. Mild supratentorial white matter small vessel ischemic changes. Signed by: DR Selvin Lan M.D. on 01/23/2019 6:21 PM
--- NOTE | 2019-01-23 20:35 | NUR ---
REPORT CALLED TO [facility] AT THIS TIME, SPOKE TO RN KYA. RECEIVING DR ASSURED NURSE THAT PT WAS FLOOR APPROPRIATE AND THAT HE WOULD BE MONITORING HER SOON SHE ARRIVED TO HOSPITAL.
[2019-01-23] MEDS ORDERED: SODIUM CHLORIDE 0.9% 250ML 250 ML ONE (21:00)
--- NOTE | 2019-01-23 21:00 | NUR ---
PLT TRANSFUSION STARTED AT THIS TIME TO PIV TO PTS RT AC 20G. PT EDUCATED OF S/S OF TRANSFUSION REACTION. VERBALIZED UNDERSTANDING. CONTINUING TO MONITOR.
[2019-01-23] MEDS ORDERED: LISINOPRIL-HCT1 EACH PO (21:23)
[2019-01-23] MEDS ORDERED: METHOTREXATE2.5 MG PO (21:23)
[2019-01-23] MEDS ORDERED: PIOGLITAZONE HC45 MG PO (21:23)
[2019-01-23] MEDS ORDERED: ROPINIROLE HCL0.5 MG PO (21:23)
[2019-01-23] MEDS ORDERED: OMEPRAZOLE40 MG PO (21:23)
--- NOTE | 2019-01-23 21:25 | NUR ---
PT REPORTED A HX OF CHRONIC KIDNEY DISEASE.
--- NOTE | 2019-01-23 22:20 | NUR ---
PT DEPARTED VIA EMS AT THIS TIME. NO S/S OF DISTRESS NOTED.
--- NOTE | 2019-01-23 23:06 | NUR ---
RECEIVING NURSE AT [facility] CALLED TO UPDATE THAT PLTS WERE GIVEN AND THE MOST RECENT VS. T - 98.0; HR - 83; RR - 18; BP - 120/66; SATS 100% ON RA.
[2019-01-23 23:09] VITALS: BP 120/66
== END 2019-01-23 22:20 | disposition other institution (70) ==
LOC: ER 15:52
DX: D61.818 Other pancytopenia (principal)
CPT/HCPCS: 36415; 70450; 71045; 80048; 85025; 85610; 85730; 86850; 86900; 86920; 93005; 99284; J7050; P9031; 85027

== ENCOUNTER 2019-02-16 15:41 | Inpatient (IN) | payer OTHER ==
[~2019-02-16] VITALS: Ht 167.6 cm; Wt 92.1 kg
[~2019-02-16 15:41] MED LIST: LISINOPRIL-HCT1 EACH PO; METHOTREXATE2.5 MG PO; OMEPRAZOLE40 MG PO; PIOGLITAZONE HC45 MG PO; ROPINIROLE HCL0.5 MG PO
--- OUTSIDE RECORDS SUMMARY | 2019-02-16 15:45 | XMS REPORT | Clinical Summary ---
Author Author ELVIA [facility] Address Unknown Phone Unavailable Care Team Providers Care Measurement Analyst Name Role Phone Faustino Aburto Jorge PCP Allergies No Known Allergies Medications End Date Status Medication Sig Dispensed Refills Start Date Active gabapentin (NEURONTIN) Take 400 mg 0 400 MG capsule by mouth 3 (three) times daily. Active simvastatin (ZOCOR) 20 MG Take 20 mg by 0 tablet mouth nightly. Active lisinopril-hydroCHLOROthi Take by mouth 0 azide daily. (PRINZIDE,ZESTORETIC) 20-12.5 mg per tablet Active acetaminophen-codeine Take 1 tablet 0 (TYLENOL #3) 300-30 mg by mouth per tablet every 6 (six) hours as needed for Pain. Active rOPINIRole (REQUIP) 0.5 Take 0.5 mg 0 MG tablet by mouth 3 (three) times daily. Active bumetanide (BUMEX) 0.5 MG Take 0.5 mg 0 tablet by mouth daily. 02/05/2020 Active DULoxetine (CYMBALTA) 30 Take 1 30 tablet 0 MG capsule capsule (30 9 mg total) by mouth daily. 02/18/2019 Active ciprofloxacin HCl (CIPRO) Take 1 tablet 28 tablet 0 500 MG tablet (500 mg 9 total) by mouth 2 (two) times daily for 14 days. 02/19/2019 Active fluconazole (DIFLUCAN) Take 2 28 tablet 0 200 MG tablet tablets (400 9 mg total) by mouth daily for 14 days. 02/18/2019 Active acyclovir (ZOVIRAX) 400 Take 1 tablet 28 tablet 0 201 MG tablet (400 mg 9 total) by mouth 2 (two) times daily for 14 days. 02/02/2019 Discontinued methotrexate 2.5 MG Take 2.5 mg 0 tablet by mouth once a week. 02/04/2019 Discontinued fluconazole (DIFLUCAN) Take 1 tablet 14 tablet 0 200 MG tablet (200 mg 9 total) by mouth daily for 14 days. 02/04/2019 Discontinued acyclovir (ZOVIRAX) 400 Take 2 56 tablet 0 MG tablet tablets (800 9 mg total) by mouth 2 (two) times daily for 14 days. Active Problems Problem Noted Date Mucosal bleeding 01/25/2019 Nausea & vomiting 01/25/2019 DM (diabetes mellitus) type 2, uncontrolled, with ketoacidosis 01/25/2019 Hypertension 01/25/2019 MICHAEL (acute kidney injury) 01/25/2019 CKD (chronic kidney disease) stage 3, GFR 30-59 ml/min 01/25/2019 Pancytopenia 01/23/2019 Encounters Care Team Description Date Type Specialty 01/30/2019 Orders Only General Internal Medicine 01/24/2019 Travel Gladis Joshi MD Brann, MD Trice Krishnan Victor Joseph III, MD Agrawal, MD Keenan Pancytopenia (HCC); Rheumatoid arthritis, involving unspecified site, unspecified rheumatoid factor presence (HCC); Methotrexate toxicity, accidental or unintentional, initial encounter; Anemia in stage 4 chronic kidney disease (HCC); Bone marrow failure (HCC); Mucosal bleeding; MICHAEL (acute kidney injury) (HCC) 01/23/2019 [facility] General Internal Medicine - Encounter 02/04/2019 after 02/15/2018 Social History Date Tobacco Use Types Packs/Day Years Used Never Smoker Smokeless Tobacco: Never Used Alcohol Use Drinks/Week oz/Week Comments No Alcohol Habits Answer Date Recorded How often do you have a drink containing alcohol? Never 01/24/2019 How many drinks containing alcohol do you have on Not asked a typical day when you are drinking? How often do you have six or more drinks on one Not asked occasion? Sex Assigned at Date Recorded Not on file Industry Job Start Date Occupation Not on file Not on file Not on file Travel End Travel History Travel Start No recent travel history available. Last Filed Vital Signs Time Taken Vital Sign Reading 02/04/2019 11:25 AM CDT Blood Pressure 171/90 02/04/2019 11:25 AM CDT Pulse 83 02/04/2019 11:25 AM CDT Temperature 37.3 C (99.1 F) 02/04/2019 11:25 AM CDT Respiratory Rate 18 02/04/2019 11:25 AM CDT Oxygen Saturation 96% - Inhaled Oxygen - Concentration 01/23/2019 11:00 PM CDT Weight 91.6 kg (202 lb) 01/24/2019 2:00 AM CDT Height 167.6 cm (5' 6") 01/23/2019 11:00 PM CDT Body Mass Index 32.6 Plan of Treatment Not on file Procedures Comments Procedure Name Priority Date/Time Associated Diagnosis RHYTHM STRIP - SCAN 02/05/2019 11:11 AM CDT POCT-GLUCOSE METER Routine 02/04/2019 11:28 AM CDT POCT-GLUCOSE METER Routine 02/04/2019 8:13 AM CDT (CELLAVISION MANUAL DIFF) Routine 02/04/2019 4:52 AM CDT CBC W/PLT COUNT & AUTO Routine 02/04/2019 DIFFERENTIAL 4:52 AM CDT CBC W/PLT COUNT & AUTO Routine 02/04/2019 DIFFERENTIAL 4:52 AM CDT POCT-GLUCOSE METER Routine 02/03/2019 8:32 PM CDT POCT-GLUCOSE METER Routine 02/03/2019 4:34 PM CDT ERYTHROPOIETIN Routine 02/03/2019 2:33 PM CDT POCT-GLUCOSE METER Routine 02/03/2019 12:24 PM CDT POCT-GLUCOSE METER Routine 02/03/2019 7:46 AM CDT (CELLAVISION MANUAL DIFF) Routine 02/03/2019 4:57 AM CDT CBC W/PLT COUNT & AUTO Routine 02/03/2019 DIFFERENTIAL 4:57 AM CDT PHOSPHORUS Routine 02/03/2019 4:57 AM CDT BASIC METABOLIC PANEL (7) Routine 02/03/2019 4:57 AM CDT CBC W/PLT COUNT & AUTO Routine 02/03/2019 DIFFERENTIAL 4:57 AM CDT POCT-GLUCOSE METER Routine 02/02/2019 8:45 PM CDT POCT-GLUCOSE METER Routine 02/02/2019 4:33 PM CDT POCT-GLUCOSE METER Routine 02/02/2019 11:46 AM CDT POCT-GLUCOSE METER Routine 02/02/2019 7:39 AM CDT (CELLAVISION MANUAL DIFF) Routine 02/02/2019 4:27 AM CDT CBC W/PLT COUNT & AUTO Routine 02/02/2019 DIFFERENTIAL 4:27 AM CDT CBC W/PLT COUNT & AUTO Routine 02/02/2019 DIFFERENTIAL 4:27 AM CDT POCT-GLUCOSE METER Routine 02/01/2019 8:35 PM CDT POCT-GLUCOSE METER Routine 02/01/2019 5:18 PM CDT POCT-GLUCOSE METER Routine 02/01/2019 12:06 PM CDT POCT-GLUCOSE METER Routine 02/01/2019 8:25 AM CDT (CELLAVISION MANUAL DIFF) Routine 02/01/2019 5:09 AM CDT CBC W/PLT COUNT & AUTO Routine 02/01/2019 DIFFERENTIAL 5:09 AM CDT CBC W/PLT COUNT & AUTO Routine 02/01/2019 DIFFERENTIAL 5:09 AM CDT BASIC METABOLIC PANEL (7) Routine 02/01/2019 5:09 AM CDT POCT-GLUCOSE METER Routine 01/31/2019 9:05 PM CDT TRANSFUSION SERVICE 01/31/2019 REPORT - SCAN 6:02 PM CDT POCT-GLUCOSE METER Routine 01/31/2019 5:02 PM CDT POCT-GLUCOSE METER Routine 01/31/2019 11:48 AM CDT POCT-GLUCOSE METER Routine 01/31/2019 8:20 AM CDT (CELLAVISION MANUAL DIFF) Routine 01/31/2019 5:23 AM CDT CBC W/PLT COUNT & AUTO Routine 01/31/2019 DIFFERENTIAL 5:23 AM CDT CBC W/PLT COUNT & AUTO Routine 01/31/2019 DIFFERENTIAL 5:23 AM CDT BASIC METABOLIC PANEL (7) Routine 01/31/2019 5:23 AM CDT PREPARE LEUKO-REDUCED ISAEL 01/30/2019 PLATELETS 11:54 PM CDT PREPARE LEUKO-REDUCED RBC ISAEL 01/30/2019 11:54 PM CDT POCT-GLUCOSE METER Routine 01/30/2019 9:35 PM CDT ECHOCARDIOGRAM REPORT - 01/30/2019 SCAN 9:22 PM CDT POCT-GLUCOSE METER Routine 01/30/2019 6:38 PM CDT TRANSFUSION SERVICE 01/30/2019 REPORT - SCAN 6:03 PM CDT CHROMOSOMES CANCER STUDY Routine 01/30/2019 2:51 PM CDT 2D ECHO W/ DOPPLER Routine 01/30/2019 (CW/PW/COLOR) 1:38 PM CDT POCT-GLUCOSE METER Routine 01/30/2019 12:11 PM CDT FLOW CYTOMETRY Routine 01/30/2019 11:36 AM CDT FLOW CYTOMETRY Routine 01/30/2019 REQUISITION 11:36 AM CDT BONE MARROW PROCESS. Routine 01/30/2019 11:34 AM CDT BONE MARROW EXAM Routine 01/30/2019 10:20 AM CDT POCT-GLUCOSE METER Routine 01/30/2019 9:09 AM CDT TROPONIN I STAT 01/30/2019 2:47 AM CDT XR CHEST 1 VIEW STAT 01/30/2019 PORTABLE/BEDSIDE 2:44 AM CDT (CELLAVISION MANUAL DIFF) Routine 01/30/2019 2:28 AM CDT CBC W/PLT COUNT & AUTO Routine 01/30/2019 DIFFERENTIAL 2:28 AM CDT CBC W/PLT COUNT & AUTO Routine 01/30/2019 DIFFERENTIAL 2:28 AM CDT BASIC METABOLIC PANEL (7) Routine 01/30/2019 2:28 AM CDT ECG 12-LEAD Routine 01/30/2019 2:23 AM CDT Procedure Note - Interface, External Ris In - 01/30/2019 2:30 AM CDT Ventricula r Rate 68 BPM Atrial Rate 68 BPM P-R Interval 138 ms QRS Duration 74 ms Q-T Interval 388 ms QTC Calculatio n(Bazett) 412 ms P Lanse 38 degrees R Lanse 21 degrees T Lanse 29 degrees Normal sinus rhythm Nonspecifi c ST abnormalit y Abnormal ECG When compared with ECG of 8 17:09, No significan t change was found ECG 12-LEAD STAT 01/30/2019 2:23 AM CDT POCT-GLUCOSE METER Routine 01/29/2019 8:42 PM CDT POCT-GLUCOSE METER Routine 01/29/2019 4:44 PM CDT TRANSFUSE LEUKO-REDUCED ISAEL 01/29/2019 PLATELETS 4:07 PM CDT TRANSFUSE LEUKO-REDUCED ISAEL 01/29/2019 RED BLOOD CELLS 12:41 PM CDT POCT-GLUCOSE METER Routine 01/29/2019 11:44 AM CDT TYPE AND SCREEN, STAT 01/29/2019 AUTOMATED 8:15 AM CDT POCT-GLUCOSE METER Routine 01/29/2019 7:53 AM CDT (CELLAVISION MANUAL DIFF) Routine 01/29/2019 4:21 AM CDT CBC W/PLT COUNT & AUTO Routine 01/29/2019 DIFFERENTIAL 4:21 AM CDT CBC W/PLT COUNT & AUTO Routine 01/29/2019 DIFFERENTIAL 4:21 AM CDT BASIC METABOLIC PANEL (7) Routine 01/29/2019 4:21 AM CDT POCT-GLUCOSE METER Routine 01/28/2019 8:56 PM CDT POCT-GLUCOSE METER Routine 01/28/2019 4:34 PM CDT POCT-GLUCOSE METER Routine 01/28/2019 11:42 AM CDT POCT-GLUCOSE METER Routine 01/28/2019 7:22 AM CDT (CELLAVISION MANUAL DIFF) Routine 01/28/2019 5:00 AM CDT CBC W/PLT COUNT & AUTO Routine 01/28/2019 DIFFERENTIAL 5:00 AM CDT PERIPHERAL BLOOD SMEAR - Routine 01/28/2019 HOLD ONLY 5:00 AM CDT CBC W/PLT COUNT & AUTO Routine 01/28/2019 DIFFERENTIAL 5:00 AM CDT BASIC METABOLIC PANEL (7) Routine 01/28/2019 5:00 AM CDT POCT-GLUCOSE METER Routine 01/27/2019 9:41 PM CDT POCT-GLUCOSE METER Routine 01/27/2019 6:25 PM CDT C. DIFFICILE GDH TOXIN Routine 01/27/2019 3:28 PM CDT POCT-GLUCOSE METER Routine 01/27/2019 12:32 PM CDT POCT-GLUCOSE METER Routine 01/27/2019 8:08 AM CDT (CELLAVISION MANUAL DIFF) Routine 01/27/2019 4:10 AM CDT CBC W/PLT COUNT & AUTO Routine 01/27/2019 DIFFERENTIAL 4:10 AM CDT CBC W/PLT COUNT & AUTO Routine 01/27/2019 DIFFERENTIAL 4:10 AM CDT BASIC METABOLIC PANEL (7) Routine 01/27/2019 4:10 AM CDT POCT-GLUCOSE METER Routine 01/26/2019 9:21 PM CDT POCT-GLUCOSE METER Routine 01/26/2019 6:15 PM CDT TRANSFUSION SERVICE 01/26/2019 REPORT - SCAN 6:02 PM CDT BLOOD CULTURE Routine 01/26/2019 3:50 PM CDT BLOOD CULTURE Routine 01/26/2019 3:50 PM CDT POCT-GLUCOSE METER Routine 01/26/2019 1:07 PM CDT EBV VIRAL LOAD Routine 01/26/2019 1:01 PM CDT RESPIRATORY PANEL SLHS Routine 01/26/2019 12:49 PM CDT POCT-GLUCOSE METER Routine 01/26/2019 9:29 AM CDT CBC W/PLT COUNT & AUTO Routine 01/26/2019 DIFFERENTIAL 12:18 AM CDT HEPATIC FUNCTION PANEL Routine 01/26/2019 12:18 AM CDT FIBRINOGEN Routine 01/26/2019 12:18 AM CDT CBC W/PLT COUNT & AUTO Routine 01/26/2019 DIFFERENTIAL 12:18 AM CDT BASIC METABOLIC PANEL (7) Routine 01/26/2019 12:18 AM CDT PREPARE LEUKO-REDUCED RBC Routine 01/25/2019 11:54 PM CDT PREPARE LEUKO-REDUCED Routine 01/25/2019 PLATELETS 11:54 PM CDT POCT-GLUCOSE METER Routine 01/25/2019 9:41 PM CDT HEPATIC FUNCTION PANEL Routine 01/25/2019 7:11 PM CDT PAROVIRUS B19 PCR, Routine 01/25/2019 QUALITATIVE 7:11 PM CDT TRANSFUSION SERVICE 01/25/2019 REPORT - SCAN 6:01 PM CDT POCT-GLUCOSE METER Routine 01/25/2019 4:26 PM CDT POCT-GLUCOSE METER Routine 01/25/2019 11:54 AM CDT PARVOVIRUS B19 IGM Routine 01/25/2019 8:02 AM CDT PARVOVIRUS B19 IGG Routine 01/25/2019 8:02 AM CDT ERYTHROPOIETIN Routine 01/25/2019 8:02 AM CDT FERRITIN Routine 01/25/2019 8:02 AM CDT PARVOVIRUS B19 ANTIBODIES Routine 01/25/2019 (IGG, IGM) 8:02 AM CDT CMV PCR, QUANTITATIVE Routine 01/25/2019 8:02 AM CDT HAPTOGLOBIN Routine 01/25/2019 8:02 AM CDT POCT-GLUCOSE METER Routine 01/25/2019 7:36 AM CDT (CELLAVISION MANUAL DIFF) Routine 01/25/2019 3:26 AM CDT CBC W/PLT COUNT & AUTO Routine 01/25/2019 DIFFERENTIAL 3:26 AM CDT MAGNESIUM Routine 01/25/2019 3:26 AM CDT FIBRINOGEN Routine 01/25/2019 3:26 AM CDT BASIC METABOLIC PANEL (7) Routine 01/25/2019 3:26 AM CDT CBC W/PLT COUNT & AUTO Routine 01/25/2019 DIFFERENTIAL 3:26 AM CDT TRIGLYCERIDES Routine 01/25/2019 3:26 AM CDT MAGNESIUM Routine 01/25/2019 3:26 AM CDT PHOSPHORUS Routine 01/25/2019 3:26 AM CDT POCT-GLUCOSE METER Routine 01/24/2019 9:41 PM CDT TRANSFUSE LEUKO-REDUCED Routine 01/24/2019 RED BLOOD CELLS 6:40 PM CDT METHOTREXATE LEVEL STAT 01/24/2019 6:39 PM CDT POCT-GLUCOSE METER Routine 01/24/2019 4:55 PM CDT XR CHEST 1 VIEW Routine 01/24/2019 PORTABLE/BEDSIDE 4:17 PM CDT TRANSFUSE LEUKO-REDUCED Routine 01/24/2019 RED BLOOD CELLS 3:12 PM CDT BLOOD CULTURE Routine 01/24/2019 10:54 AM CDT BLOOD CULTURE Routine 01/24/2019 10:49 AM CDT TRANSFUSE LEUKO-REDUCED Routine 01/24/2019 PLATELETS 5:59 AM CDT TRANSFUSE LEUKO-REDUCED Routine 01/24/2019 PLATELETS 5:44 AM CDT ABORH, MANUAL STAT 01/24/2019 2:08 AM CDT HIV-1 ANTIGEN WITH Routine 01/24/2019 HIV-1/2 ANTIBODY 2:08 AM CDT HEPATITIS B PANEL Routine 01/24/2019 2:08 AM CDT HEPATITIS C ANTIBODY Routine 01/24/2019 2:08 AM CDT VITAMIN B12 AND FOLATE Routine 01/24/2019 1:08 AM CDT IRON, TIBC, % SAT. Routine 01/24/2019 (WITHOUT FERRITIN) 1:08 AM CDT (CELLAVISION MANUAL DIFF) Routine 01/24/2019 1:01 AM CDT CBC W/PLT COUNT & AUTO Routine 01/24/2019 DIFFERENTIAL 1:01 AM CDT TYPE AND SCREEN, Routine 01/24/2019 AUTOMATED 1:01 AM CDT PERIPHERAL BLOOD SMEAR - Routine 01/24/2019 PATHOLOGIST REVIEW 1:01 AM CDT CBC W/PLT COUNT & AUTO Routine 01/24/2019 DIFFERENTIAL 1:01 AM CDT PROTHROMBIN TIME/INR Routine 01/24/2019 1:01 AM CDT LACTATE DEHYDROGENASE Routine 01/24/2019 (LDH) 1:01 AM CDT BASIC METABOLIC PANEL (7) Routine 01/24/2019 1:01 AM CDT after 02/15/2018 Results * RHYTHM STRIP - SCAN (02/05/2019 11:11 AM CDT) Narrative Performed At * POC-Glucose meter (02/04/2019 11:28 AM CDT) Only the most recent of 44 results within the time period is included. POC-Glucose Meter 133 (H)Comment: TESTED AT 70 - 110 mg/dL [facility] [address] [facility] [id number] Specimen Blood Performing Organization Address City/State/Zipcode Phone Number [facility] [address] [place] [address] [facility] * Manual Differential (02/04/2019 4:52 AM CDT) Only the most recent of 11 results within the time period is included. % Neutros 17 % [facility] % Lymphs 44 % [facility] % Monos 22 % [facility] % Eos 8 % [facility] % Baso 1 % [facility] % Metamyelo 1 (H) 0 - 0 % [facility] % Atypical Lymphs 7 (H) 0 - 0 % [facility] # Neutros 0.37 (L) 1.56 - 6.13 K/ul [facility] # Lymphs 0.97 (L) 1.18 - 3.74 K/ul [facility] # Monos 0.48 (H) 0.24 - 0.36 K/uL [facility] # Eos 0.18 0.04 - 0.36 K/uL [facility] # Baso 0.02 0.01 - 0.08 K/uL [facility] # Metamyelo 0.02 (H) 0.00 - 0.00 K/uL [facility] # Atypical Lymphs 0.15 (H) 0.00 - 0.00 K/uL [facility] Total Counted 100 [facility] WBC Morphology Normal [facility] Giant Platelet Present [facility] Large Platelet Present [facility] Polychromasia 1+ few [facility] Hypochromia 1+ few [facility] Anisocytosis 1+ few [facility] Poikilocytes 1+ few [facility] Schistocytes 1+ few [facility] Spherocytes 1+ few [facility] Ovalocytes 1+ few [facility] Acanthocytes 1+ few [facility] Artifact Present [facility] Helmet Cells 1+ few [facility] Platelet Conc Increased [facility] Specimen Blood Narrative Performed At Received comment: [facility] User comments: [facility] Slide comments: Performing Organization Address City/[facility] Cent[facility]ode Phone Number [facility] [address] [place] [address] [facility] * CBC with platelet count + automated diff (02/04/2019 4:52 AM CDT) Only the most recent of 12 results within the time period is included. WBC 2.2 (L) 3.5 - 10.5 K/L [facility] RBC 2.81 (L) 3.93 - 5.22 M/L [facility] Hemoglobin 9.1 (L) 11.2 - 15.7 GM/DL [facility] Hematocrit 27.8 (L) 34.1 - 44.9 % [facility] MCV 98.9 (H) 79.4 - 94.8 fL [facility] MCH 32.4 (H) 25.6 - 32.2 pg [facility] MCHC 32.7 32.2 - 35.5 GM/DL [facility] RDW 14.9 (H) 11.7 - 14.4 % [facility] Platelets 530 (H) 150 - 450 K/CU MM [facility] MPV 9.7 9.4 - 12.3 fL [facility] nRBC 0 0 - 0 /100 WBC [facility] Specimen Blood Performing Organization Address City/[facility]/Zipcode Phone Number [facility] [address] [address] [facility] * Erythropoietin (02/03/2019 2:33 PM CDT) Only the most recent of 2 results within the time period is included. Scan Result [facility] Erythropoietin 20.6 (H) 2.6 - 18.5 mIU/mL [facility] Specimen Blood Narrative Performed At [facility] [place] [address] [place] [address] Anabel Robledo MD, PhD, DANYA Performing Organization Address City/[facility] Centercode Phone Number [facility] [place], [address] [facility] [employer] [address] * Phosphorus (02/03/2019 4:57 AM CDT) Only the most recent of 2 results within the time period is included. Phosphorus 3.2 2.3 - 4.7 mg/dL [facility] Specimen Blood Performing Organization Address City/[facility] Centercode Phone Number [address] [address] [phone] [place] [address] * Basic Metabolic Panel (02/03/2019 4:57 AM CDT) Only the most recent of 10 results within the time period is included. Sodium 138 136 - 145 meq/L [facility] Potassium 4.1 3.5 - 5.1 meq/L [facility] Chloride 110 (H) 98 - 107 meq/L [facility] CO2 21 (L) 22 - 29 meq/L [facility] BUN 25 (H) 7 - 21 mg/dL [facility] Creatinine 1.52 (H) 0.57 - 1.25 mg/dL [facility] Glucose 72 70 - 105 mg/dL [facility] Calcium 9.0 8.4 - 10.2 mg/dL [facility] EGFR 41Comment: ESTIMATED GFR IS mL/min/1.[address] [facility] NOT ACCURATE CREATININE [facility] CLEARANCE IN PREDICTING GLOMERULAR FILTRATION RATE. ESTIMATED GFR IS NOT APPLICABLE FOR DIALYSIS PATIENTS. Specimen Blood Performing Organization Address City/State/Zipcode Phone Number [facility] [address] [place] [address] [facility] * TRANSFUSION SERVICE REPORT - SCAN (01/31/2019 6:02 PM CDT) Only the most recent of 4 results within the time period is included. Narrative Performed At * Prepare Leuko-Red PLT (01/30/2019 11:54 PM CDT) Only the most recent of 2 results within the time period is included. Unit ABO A Pos [facility] [place] UNIT NUMBER [id number] [facility] [place] Status TX_TIMEINCHART [facility] [place] Blood Bank Product PLATELETS [facility] [place] PRODUCT CODE [id number] [facility] [place] Specimen Blood Performing Organization Address [facility] Phone Number [facility] [place] * Prepare Leuko-Red RBC (01/30/2019 11:54 PM CDT) Only the most recent of 2 results within the time period is included. CROSSMATCH COMPATIBLE [facility] [place] Unit ABO A Pos [facility] [place] UNIT NUMBER [id number] [facility] [place] Status TX_TIMEINCHART [facility] [place] Blood Bank Product RED BLOOD CELLS [facility] [place] PRODUCT CODE [id number] [facility] [place] Specimen Other Performing Organization Address City/[facility] Phone Number [facility] [place] * ECHOCARDIOGRAM REPORT - SCAN (01/30/2019 9:22 PM CDT) Narrative Performed At * Chromosomes Cancer Study (01/30/2019 2:51 PM CDT) Scan Result [facility] Specimen Bone Marrow Narrative Performed At Performing Organization Address City/State/Zipcode Phone Number [facility] [address] [place] [address] GENET[facility] * 2D Echo W/Doppler(CW/PW/Color) (01/30/2019 1:38 PM CDT) Ejection Fraction [facility] Specimen Narrative Performed At Transthoracic Echocardiography Report (TTE) [facility] ECHO [facility]ART[facility] Demographics [facility] Patient Name CUCO VAZQUEZ Date of Study 01/30/2019 [id number] GenderFemale Visit Number [id number] RaceBlack Accession Number [id number] Number [id number] Date of Birth1950 Referring Physician Keenan Hale RES Age68 year(s) Aerospace Medicine Physician Kelsey Tse [facility] AnalystAlex Ulisses Burns MD Physician Procedure Type of Study TTE procedure:2DECHO W DOPPLER(CW/PW/COLOR) (Routine) Indications:Known or suspected heart failure. Clinical History DM;HTN. HGB 8.5 HCT 25.4 % Height: 66 inches Weight: 91.63 kg (202 lbs) BSA: 2.01 m^2 BMI: 32.6 kg/m^2 HR: 71 bpm BP: 155/77 mmHg Summary 1. Normal left ventricular chamber size. Normal wall thickness. Normal overall left ventricular systolic function. No apparent segmental wall motion abnormalities. Estimated LVEF by qualitative assessment is normal (55-60%). LA size is moderately enlarged . 2. Normal right ventricle structure and function. Normal right atrium. Estimated peak systolic PA pressure is 45-50 mmHg . 3. Mild to moderate mitral regurgitation. Previous Study No prior exam available for comparison. Signature Findings Left Ventricle Normal left ventricular chamber size. Normal wall thickness. Normal overall left ventricular systolic function. No apparent segmental wall motion abnormalities. Estimated LVEF by qualitative assessment is normal (55-60%) . Left AtriumLA size is moderately enlarged . Right VentricleNormal right ventricle structure and function. Right Atrium Normal right atrium. Atrial SeptumNormal interatrial septum by available views. Aortic Valve Mild AoV cusp thickening. A trace of aortic regurgitation. Mitral Valve Mild MV leaflet thickening. Mild to moderate mitral regurgitation. Tricuspid ValveTrace tricuspid regurgitation. Estimated peak systolic PA pressure is 45-50 mmHg . Pulmonic Valve Normal PV structure and function by limited views and Doppler. AortaAortic root size (SInus of Valsalva diameter) is normal . PericardiumA trivial posterior pericardial effusion is present . IVC/SVC/PA/PV/PleuralThe estimated RA pressure by IVC dynamics 11-15mmHg . Chambers/Structures Left Atrium LA Dimension: 3.93 cmLA Area: 21.74 cm^2 LA Volume: 88.27 ml LA Vol. Index: 44 ml/m^2 Left Ventricle LVIDd: 4.7 cm LV Septum Diastolic: 0.98 cm LV PW Diastolic: 0.95 cm LVEDV Delgado's:111.58 ml LVESV Delgado's:39.96 ml LVEF Delgado's: 64.2 %LVEDVI: 56 ml/m^2 LVESVI: 20 ml/m^2 LVOT Diameter: 2.15 cm Right Ventricle RV Diast Dim.: 3.57 cm Aorta Ao Root S of Aliya.: 3.34 cm Doppler/Quantitative Measurements Mitral Valve MV Peak E-Wave: 1.25 m/sMV Peak A-Wave: 1.1 m/s E/A Ratio: 1.13 Peak Gradient: 6.21 mmHg Deceleration Time: 158.6 msec MV Jose Guadalupe. Peak: Tissue Doppler E' Lateral Velocity: 0.11 m/s A' Lateral Velocity: 0.04 m/s Aortic Valve Peak Velocity: 1.67 m/sMean Velocity: 1.12 m/s Peak Gradient: 11.15 mmHgMean Gradient: 5.76 mmHg AV Area (continuity): 2.27 cm^2 AV VTI: 37.31 cm AV DVI: 0.63 LVOT Peak Velocity: 1.13 m/s Peak Gradient: 5.08 mmHg Mean Velocity: 0.77 m/s Mean Gradient: 2.74 mmHg LVOT Diameter: 2.15 cmLVOT VTI: 23.36 cm LVOT Area: 3.63 cm^2LVOT SV:84.77 ml LVOT CO: 6.02 l/min LVOT CI: 3 l/min/m^2 Procedure Note Interface, External Ris In - 01/30/2019 5:11 PM CDT Transthoracic Echocardiography Report (TTE) Demographics Patient Name CUCO VAZQUEZ Date of Study 01/30/2019 Gender Female Visit Number [id number] Race Black Accession Number [id number] Room Number 934 Date of 1950 Referring Physician Keenan Hale RES Age 68 year(s) [employer] Medicine Physician Kelsey Tse [facility] Manager Story [address] Interpreting Camilo Burns MD Physician Procedure Type of Study TTE procedure:2DECHO W DOPPLER(CW/PW/COLOR) (Routine) Indications:Known or suspected heart failure. Clinical History DM;HTN. HGB 8.5 HCT 25.4 % Height: 66 inches Weight: 91.63 kg (202 lbs) BSA: 2.01 m^2 BMI: 32.6 kg/m^2 HR: 71 bpm BP: 155/77 mmHg Summary 1. Normal left ventricular chamber size. Normal wall thickness. Normal overall left ventricular systolic function. No apparent segmental wall motion abnormalities. Estimated LVEF by qualitative assessment is normal (55-60%). LA size is moderately enlarged . 2. Normal right ventricle structure and function. Normal right atrium. Estimated peak systolic PA pressure is 45-50 mmHg . 3. Mild to moderate mitral regurgitation. Previous Study No prior exam available for comparison. Signature Findings Left Ventricle Normal left ventricular chamber size. Normal wall thickness. Normal overall left ventricular systolic function. No apparent segmental wall motion abnormalities. Estimated LVEF by qualitative assessment is normal (55-60%) . Left Atrium LA size is moderately enlarged . Right Ventricle Normal right ventricle structure and function. Right Atrium Normal right atrium. Atrial Septum Normal interatrial septum by available views. Aortic Valve Mild AoV cusp thickening. A trace of aortic regurgitation. Mitral Valve Mild MV leaflet thickening. Mild to moderate mitral regurgitation. Tricuspid Valve Trace tricuspid regurgitation. Estimated peak systolic PA pressure is 45-50 mmHg . Pulmonic Valve Normal PV structure and function by limited views and Doppler. Aorta Aortic root size (SInus of Valsalva diameter) is normal . Pericardium A trivial posterior pericardial effusion is present . IVC/SVC/PA/PV/Pleural The estimated RA pressure by IVC dynamics 11-15mmHg . Chambers/Structures Left Atrium LA Dimension: 3.93 cm LA Area: 21.74 cm^2 LA Volume: 88.27 ml LA Vol. Index: 44 ml/m^2 Left Ventricle LVIDd: 4.7 cm LV Septum Diastolic: 0.98 cm LV PW Diastolic: 0.95 cm LVEDV Delgado's:111.58 ml LVESV Delgado's:39.96 ml LVEF Delgado's: 64.2 % LVEDVI: 56 ml/m^2 LVESVI: 20 ml/m^2 LVOT Diameter: 2.15 cm Right Ventricle RV Diast Dim.: 3.57 cm Aorta Ao Root S of Aliya.: 3.34 cm Doppler/Quantitative Measurements Mitral Valve MV Peak E-Wave: 1.25 m/s MV Peak A-Wave: 1.1 m/s E/A Ratio: 1.13 Peak Gradient: 6.21 mmHg Deceleration Time: 158.6 msec MV Jose Guadalupe. Peak: Tissue Doppler E' Lateral Velocity: 0.11 m/s A' Lateral Velocity: 0.04 m/s Aortic Valve Peak Velocity: 1.67 m/s Mean Velocity: 1.12 m/s Peak Gradient: 11.15 mmHg Mean Gradient: 5.76 mmHg AV Area (continuity): 2.27 cm^2 AV VTI: 37.31 cm AV DVI: 0.63 LVOT Peak Velocity: 1.13 m/s Peak Gradient: 5.08 mmHg Mean Velocity: 0.77 m/s Mean Gradient: 2.74 mmHg LVOT Diameter: 2.15 cm LVOT VTI: 23.36 cm LVOT Area: 3.63 cm^2 LVOT SV:84.77 ml LVOT CO: 6.02 l/min LVOT CI: 3 l/min/m^2 Performing Organization Address City/State/Zipcode Phone Number [facility] * Flow Cytometry Requisition (01/30/2019 11:36 AM CDT) Flow Cytometry See Separate Report [facility] Case # [id number] [facility] Specimen Bone Marrow Performing Organization Address City/[facility]/Zipcode Phone Number [place] [phone] [address] CENTER * Flow Cytometry (01/30/2019 11:36 AM CDT) Case Report Flow Cytometry [facility] Report [facility] Case: [id number] Authorizing Provider:Mckenzie Rojas Collected: 01/30/2019 1136 Ordering Location: [address] Received: 01/30/2019 1254 Service Pathologist: Yordy Painter MD Specimen:Other Flow Interpretation BONE MARROW, FLOW CYTOMETRY: [facility] BLASTS ACCOUNT FOR 6.55% OF [facility] ANALYZED EVENTS. NO MONOCLONAL B CELL POPULATION. NO ABNORMAL T CELL POPULATION. CORRELATION WITH MORPHOLOGIC FINDINGS REQUIRED. CPT Code(s) 29216 [facility] CLINICAL HISTORY Pancytopenia [facility] SPECIMEN SOURCE Bone marrow [facility] CELLULAR BIOMARKER CD8, surface-[place], CD56, [facility] ANALYSIS surface-Lambda, CD5, CD19, [facility] CD10, CD3, CD20, CD4, CD45, CD14, CD13, CD33, CD117, CD34, cKappa, cLambda, CD38, CD138 IMMUNOPHENOTYPIC FINDINGS Specimen Viability: 93.1% [facility] Blasts: The dim CD45+ CD34+ [facility] blasts comprise 6.55% of total cells. The majority of these cells express CD13 and CD33 (myeloblasts). Minimal hematogones are present. Lymphocytes: Bright CD45+ lymphocytes comprise 13.8% of total cells. T cells show a CD4:CD8 ratio of 3.4 and normal sanabria T cell antigen expression. B cells are polytypic with a kappa:lambda ratio of 1.6. Myeloid/monocytic populations: As identified by CD45 and light scatter characteristics, granulocytes comprise the majority of cells analyzed, and monocytes comprise 2.0% of total cells. Plasma cells: 2.8% CD138 positive plasma cells are noted with polytypic cytoplasmic light chain expression. The remaining events analyzed represent nonviable cells, non-hematolymphoid cells, and/or debris. DISCLAIMER These tests were developed and [facility] their performance [facility] characteristics determined by [facility] They have not been cleared or approved by the U.S. Food and Drug Administration. The FDA has determined that such clearance or approval is not necessary. It should not be regarded as investigational or for research. This laboratory is certified under the Clinical Laboratory Improvement Amendments of 1988 ("CLIA") as qualified to perform high-complexity clinical testing. Specimen Other Performing Organization Address City/State/Zipcode Phone Number [facility] [address] [place] [address] [facility] * BONE MARROW PROCESS. (01/30/2019 11:34 AM CDT) Anatomic Case# [id number] [facility] Ordering Physician LAURA [facility] Performing Physician Mono [facility] Clot Rec'd? Yes [facility] Biopsy Rec'd? Yes [facility] Rec'd for Culture? No [facility] Rec'd for Flow? Yes [facility] Rec'd for Cytogenetics? Yes [facility] Rec'd for Molecular Yes [facility] Genetics? [facility] Specimen Bone Marrow Narrative Performed At [facility] collection by Dr Villareal. Slides are good(Dhara) [facility] Performing Organization Address City/[facility]/Zipcode Phone Number [facility] [address] [place] [address] MEDICAL CENTER * Bone Marrow Exam (01/30/2019 10:20 AM CDT) Case Report Bone Marrow Pathology [facility] Report [facility] Case: [id number] Authorizing Provider:Mckenzie Rojas Collected: 01/30/2019 1020 Ordering Location: [address] Received: 01/30/2019 1136 Service Pathologist: Yordy Painter MD Specimens: A) - Iliac Crest, Right B) - C) - ADDENDUM Karyotype is reported to be [facility] 46,XX[20]. [facility] See attached scanned report. DIAGNOSIS BONE MARROW ASPIRATE, CLOT, [facility] AND DECALCIFIED BIOPSY: [facility] NORMOCELLULAR MARROW (40%) WITH DYSMEGAKARYOPOIESIS AND RELATIVE ERYTHROID HYPERPLASIA. BLASTS ARE INCREASED (8% BY MANUAL COUNT). CYTOGENETIC STUDIES PENDING, SEE DIAGNOSTIC COMMENT. PERIPHERAL BLOOD: PANCYTOPENIA. NO CIRCULATING BLASTS. Signing Pathologist Direct Phone Line: [phone] COMMENT This patient has a reported 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 In the absence of non-neoplastic etiologies or acute phase responses, the findings raise concern for the presence of a myelodysplastic syndrome. However correlation with clinical follow up and molecular cytogenetic studies is required for complete interpretation. The results of these ancillary studies will be released in an addendum report. This case was discussed with Dr. Mceknzie Rojas, clinical dictating machine mechanic, on 02/02/2019. CPT Code(s) 40411; 14388; 84373 x 2; [facility] 07117; 83850, 58338, [address]198 [facility] CLINICAL HISTORY Anemia [facility] SPECIMEN SOURCE B. Bone marrow clot. C. Bone [facility] marrow biopsy [facility] GROSS DESCRIPTION Part B. Received in formalin, [facility] labeled with the patient's [facility] information and "marrow" is a dupont-red blood clot that measures measure 2.1 x 1.2 x 0.3 cm. The specimen is submitted entirely following filtration in cassette B1. Part C. Received in formalin, labeled with the patient's information and "bone marrow biopsy" is a dupont-red bone marrow biopsy that measures measure 1.4 cm long x 0.2 cm in diameter. The specimen is submitted entirely following filtration in cassette C1. /sanjay MICROSCOPIC DESCRIPTION BONE MARROW ASPIRATE: [facility] QUALITY: [facility] Aspirate- Adequate Touch imprint- Adequate MARROW DIFFERENTIAL COUNT: Number of cells counted:500 8% Blasts 7% Promyelocytes 15% Myelocytes/Metamyelocytes 10% Bands/Segmented granulocytes 4% Eosinophils and precursors 1% Basophils and precursors 40% Erythroid precursors 5% Lymphocytes 5% Monocytes 5% Plasma cells Myeloid Erythroid Ratio: 1.79 Blasts: Increased Erythropoiesis: Relatively increased. Mild megaloblastoid changes Myelopoiesis: Decreased, without significant morphologic abnormalities. Megakaryocytes: Increased, with numerous hypolobated and occasional multinucleated forms. Stainable iron is identified on rare marrow particles present on the aspirate smear. Ring sideroblasts are not identified. BONE MARROW BIOPSY: Biopsy- Adequate Clot- Adequate The marrow cellularity is approximately 40%. Megakaryocytes are increased with dyspoietic forms including clustering and hypolobation. CD34 performed on the core biopsy (block C1) highlights slightly increased blasts, which approach approximately the range of 5 to 10% as estimated on the core biopsy. Stainable iron is identified on the clot section by the Perls iron special stain and appears to be slightly increased. Occasional ring sideroblasts are identified, less than 1% of erythroid precursors. PERIPHERAL BLOOD: Red cells: Anemia, mild anisopoikilocytosis White cells: Leukopenia. No definitive circulating blasts. Platelets: Unremarkable. This bone marrow core biopsy and aspirate procedure was performed by Dr. Angella Villareal, clinical pathologist. SPECIAL STUDIES The interpretation of this [facility] case included the use of [facility] immunohistochemistry or special stains. BLOCK B1- PERLS IRON BLOCK C1- CD34 Immunohistochemistry technical testing was performed at [facility], Pathology Laboratory where it was developed and its performance characteristics were determined. It has not been cleared or approved by the U.S. Food and Drug Administration. The FDA has determined that such clearance or approval is not necessary. The test is used for clinical purposes. It should not be regarded as investigational or for research. This laboratory is certified under the Clinical Laboratory Improvement Amendments of 1988 (CLIA-88) as qualified to perform high complexity clinical laboratory testing. Specimen Bone Marrow Narrative Performed At Performing Organization Address City/State/Zipcode Phone Number [place] [phone] * Troponin I (01/30/2019 2:47 AM CDT) Troponin I <0.01 0.00 - 0.03 ng/mL [facility] Specimen Blood Narrative Performed At Troponin I (TnI) levels must be interpreted in the context of the presenting [facility] symptoms and the clinical findings. Elevated TnI levels indicate myocardial [facility] damage, but are not specific for ischemic heart disease. Elevated TnI levels are seen in patients with other cardiac conditions (including myocarditis and congestive heart failure), and slight TnI elevations occur in patients with other conditions, including sepsis, renal failure, acidosis, acute neurological disease, and persistent tachyarrhythmia. Performing Organization Address City/State/Zipcode Phone Number [place] [phone] * XR chest 1 view portable / bedside (01/30/2019 2:44 AM CDT) Only the most recent of 2 results within the time period is included. Specimen Narrative Performed At FINAL REPORT [facility] Chest one view. Clinical history: chest pain, r/o effusion Comparison: Chest radiograph 01/24/19 Technique: A single frontal view of the chest was obtained. Findings: The cardiac silhouette is mildly enlarged. The aorta is tortuous and atherosclerotic. There is pulmonary interstitial edema. There is no focal pulmonary consolidation, pleural effusion or pneumothorax. The bony thorax is demineralized but otherwise unremarkable. Impression: Pulmonary interstitial edema. No pleural effusion. Mild cardiomegaly. Signed: Kayla Ford MD Report Verified Date/Time:01/30/2019 03:09:04 Reading Location: [address] Body Reading Room Procedure Note Interface, External Ris In - 01/30/2019 3:11 AM CDT FINAL REPORT Chest one view. Clinical history: chest pain, r/o effusion Comparison: Chest radiograph 01/24/19 Technique: A single frontal view of the chest was obtained. Findings: The cardiac silhouette is mildly enlarged. The aorta is tortuous and atherosclerotic. There is pulmonary interstitial edema. There is no focal pulmonary consolidation, pleural effusion or pneumothorax. The bony thorax is demineralized but otherwise unremarkable. Impression: Pulmonary interstitial edema. No pleural effusion. Mild cardiomegaly. Signed: Kayla Ford MD Report Verified Date/Time: 01/30/2019 03:09:04 Reading Location: [facility] C013Y CT Body Reading Room Performing Organization Address City/[facility] Center[facility] Phone Number GE RIS * ECG 12 lead (01/30/2019 2:23 AM CDT) Specimen Narrative Performed At Ventricular Rate 68 BPM GE MUSE Atrial Rate 68 BPM P-R Interval 138 ms QRS Duration 74 ms Q-T Interval 388 ms QTC Calculation(Bazett) 412 ms P Lanse 38 degrees R Lanse 21 degrees T Lanse 29 degrees Normal sinus rhythm Normal ECG When compared with ECG of 27-JUL-2008 17:09, No significant change was found Confirmed by Juan Ramon MCKEON MICHAEL ([id number]) on 01/30/2019 7:43:20 AM Procedure Note Interface, External Ris In - 01/30/2019 7:43 AM CDT Ventricular Rate 68 BPM Atrial Rate 68 BPM P-R Interval 138 ms QRS Duration 74 ms Q-T Interval 388 ms QTC Calculation(Bazett) 412 ms P Lanse 38 degrees R Lanse 21 degrees T Lanse 29 degrees Normal sinus rhythm Normal ECG When compared with ECG of 27-JUL-2008 17:09, No significant change was found Confirmed by Juan Ramon MCKEON MICHAEL ([id number]) on 01/30/2019 7:43:20 AM Performing Organization Address [facility] CenterVelo Labsne Phone Number [employer] MUSE * Transfuse Leuko-Red PLT (01/29/2019 4:07 PM CDT) Only the most recent of 5 results within the time period is included. * Transfuse Leuko-Red RBC (01/29/2019 12:41 PM CDT) Only the most recent of 5 results within the time period is included. * Type and screen, automated (01/29/2019 8:15 AM CDT) Only the most recent of 2 results within the time period is included. ABO/RH AUTOMATED (BEAKER) A POSITIVE [facility] Ab Scrn NEGATIVE [facility] Specimen Blood Performing Organization Address City/[facility] Medical Centercode Phone Number [address] * Peripheral Blood Smear - Hold only (01/28/2019 5:00 AM CDT) Peripheral Smear Save saved [facility] Specimen Blood Performing Organization Address [facility] Centercone Phone Number [place] [phone] * Clostridium difficile [facility] Toxin (01/27/2019 3:28 PM CDT) C. Difficle Toxin Negative Negative [facility] C. Difficile [facility] Antigen NegativeComment: No indication Negative [facility] of Clostridium difficile [facility] infection and no colonization. Discontinue enteric isolation and therapy. Specimen Stool Narrative Performed At Testing performed by [employer] Rapid Cassette Assay.For [facility], published [facility] sensitivity of the assay is 98.7% compared to cytotoxicity testing.For Toxin [facility] AB, published sensitivity is 87.8% and specificity 99.4% compared to cytotoxicity testing. Verification of kit performance was done by the [facility] Microbiology Lab prior to clinical use. Performing Organization Address City/[facility] Medical Centercode Phone Number [address] [address] [phone] * Blood Culture - Routine (Left Venipuncture) (01/26/2019 3:50 PM CDT) Only the most recent of 4 results within the time period is included. Result No growth in 5 days [facility] Specimen Blood Performing Organization Address City/[facility]/Zipcode Phone Number [facility] [address] [place] [address] [facility] * EBV VIRAL LOAD (01/26/2019 1:01 PM CDT) EBV Viral Load Negative or below the linear [facility] range of the assay (<500 [facility] copies/mL) Specimen Blood Narrative Performed At This assay was performed by real-time PCR for the detection of the Wilfrido-Bautista [facility] virus (EBV) gene EBNA-1.The test is composed of (1) DNA extraction from [facility] patient specimen, and (2) real-time PCR amplification and detection with CQJR-0-bingnnwi primers and probes. A well-conserved region of the EBNA-1 gene is targeted, along with an internal control sequence used to confirm PCR amplification. Asymptomatic carriers and viral genetic variation, among other factors, can affect the accuracy of nucleic acid testing; therefore, results should be interpreted in light of clinical data. This test was developed and its performance characteristics determined by the [facility] Pathology Department, Section of Molecular Pathology. It has not been cleared or approved by the U.S. Food and Drug Administration (FDA), since FDA approval is not required for clinical use of the test. Validation was done as required by The Clinical Laboratory Improvement Amendments of 1988. Performing Organization Address City/State/Zipcode Phone Number [facility] [address] [place] [address] [facility] * RESPIRATORY PANEL [facility] (01/26/2019 12:49 PM CDT) Human Metapneumovirus Not detected Not detected, Equivocal [facility] Rhinovirus Not detected Not detected, Equivocal [facility] Influenza A Not detected Not detected, Equivocal [facility] INFLUENZA A (NO SUBTYPE) Not detected, Equivocal [facility] Influenza A subtype H1 Not detected, Equivocal [facility] Influenza A Subtype H3 Not detected, Equivocal [facility] Influenza A Subtype Not detected, Equivocal [facility] H1-2009 [facility] Influenza B Not detected Not detected, Equivocal [facility] Respiratory Syncytial Not detected Not detected, Equivocal [facility] Virus [facility] Parainfluenza Virus 1 Not detected Not detected, Equivocal [facility] Parainfluenza Virus 2 Not detected Not detected, Equivocal [facility] Parainfluenza virus 3 Not detected Not detected, Equivocal [facility] Parainfluenza Virus 4 Not detected Not detected, Equivocal [facility] Adenovirus Not detected Not detected, Equivocal [facility] Coronavirus 229E Not detected Not detected, Equivocal [facility] Coronavirus HKU1 Not detected Not detected, Equivocal [facility] Coronavirus NL63 Not detected Not detected, Equivocal [facility] Coronavirus OC43 Not detected Not detected, Equivocal [facility] Bordetella Pertussis Not detected Not detected, Equivocal [facility] Chlamydophila Pneumoniae Not detected Not detected, Equivocal [facility] Mycoplasma Pneumoniae Not detected Not detected, Equivocal [facility] Specimen Nasopharyngeal - Nasal, Right Narrative Performed At Other viruses and bacteria not targeted by this PCR panel cannot be excluded; [facility] therefore clinical correlation and follow up of serology, culture results, and [facility] other molecular studies is required. The results are not intended to be used as the sole means for clinical diagnosis or patient management decisions. This sample was tested at the [facility] Molecular Diagnostics Laboratory using the Th[employer]peedArray Respiratory Panel. It is FDA cleared and has been verified and approved by the [facility] Molecular Diagnostics Laboratory for clinical use on nasal swab specimens. It is not FDA-cleared for use on bronchial wash/lavage samples. However, for this sample type, validation was performed and test characteristics were determined and approved, by [facility] Molecular Diagnostics laboratory for clinical use under the Clinical Laboratory Improvement Amendments (CLIA) of 1988 requirements. Therefore, FDA clearance is not required.This laboratory is CLIA-certified and [employer] (CAP)-accredited to perform high complexity testing. Performing Organization Address City/[facility] Centercode Phone Number [facility] [address] [place] [address] [facility] * Fibrinogen (01/26/2019 12:18 AM CDT) Only the most recent of 2 results within the time period is included. Fibrinogen 375 225 - 434 mg/dl [facility] Specimen Blood Performing Organization Address City/[facility] Centercode Phone Number [facility] [address] [place] [address] [facility] * Hepatic function panel (01/26/2019 12:18 AM CDT) Only the most recent of 2 results within the time period is included. Protein, Total 7.2 6.0 - 8.3 gm/dL [facility] Albumin 3.5 3.5 - 5.0 g/dL [facility] Total Bilirubin 0.7 0.2 - 1.2 mg/dL [facility] Bilirubin, Direct 0.3 0.1 - 0.5 mg/dL [facility] Alkaline Phosphatase 42 40 - 150 U/L [facility] AST 24 5 - 34 U/L [facility] ALT 18 6 - 55 U/L [facility] Specimen Blood Performing Organization Address City/[facility] Centercode Phone Number [place] [phone] [place] [address] [phone] [place] [address] * Parovirus B19 PCR, qualitative (01/25/2019 7:11 PM CDT) Scan Result [facility] Source-Body Site SERUM [facility] Parvovirus B19 DNA NOT DETECTED [facility] Comment: INCORPORATED The primers/probe used in this assay will detect parvovirus B19 and V9 (genotypes 1 ?? 3) but may not detect parvovirus genotype 2. The majority of circulating Parvovirus B19 strains in the [place] are genotype 1. Genotype 2 is not believed to circulate widely in the [facility], but has been associated with similar clinical features as genotype 1. Genotype 3 is most prevalent in some countries. REFERENCE RANGE: NOT DETECTED This test was developed and its analytical performance characteristics have been determined by [facility]. It has not been cleared or approved by FDA. This assay has been validated pursuant to the CLIA regulations and is used for clinical purposes. Specimen Blood Narrative Performed At [facility] [address] [place] [address] Lopez Reynolds MD Performing Organization Address [facility] Phone Number [facility], [address] [facility] [address] * PARVOVIRUS B19 IGM (01/25/2019 8:02 AM CDT) Parvovirus B19 Igm 0.2 [facility] Comment: INC[facility]PORATED REFERENCE RANGE: <0.9 INTERPRETIVE CRITERIA: <0.9 Negative 0.9 - 1.1 Equivocal >1.1 Positive Results from any one IgM assay should not be used as a sole determinant of a current or recent infection. Because IgM tests can yield false positive results and low levels of IgM antibody may persist for months post infection, reliance on a single test result could be misleading. If an acute infection is suspected, consider obtaining a new specimen and submit for both IgG and IgM testing in two or more weeks. To diagnose current infection, consider Parvovirus B19 DNA, PCR. Specimen Blood Narrative Performed At [facility] [address] [place] [address] Lopez Reynolds MD Performing Organization Address [facility]ode Phone Number [facility] [employer] [place], [address] [facility] [address] * PARVOVIRUS B19 IGG (01/25/2019 8:02 AM CDT) Parvovirus B19 Igg 4.9 (H) [facility] Comment: [facility]PORATED REFERENCE RANGE: <0.9 INTERPRETIVE CRITERIA: <0.9 Negative 0.9 - 1.1 Equivocal >1.1 Positive IgG persists for years and provides life-long immunity. To diagnose current infection, consider Parvovirus B19 DNA, PCR. Specimen Blood Narrative Performed At Performing [facility] [address] [place] [address] Lopez Reynolds MD Performing Organization Address City/State/Zipcode Phone Number [facility] [place], [address] [place], [place] INCORPORATED [facility] [address] * CMV PCR, quantitative (01/25/2019 8:02 AM CDT) CMV DNA Viral Load Negative or below the linear [facility] range of the assay (<375 [facility] copies/mL) Specimen Blood Narrative Performed At Cytomegalovirus (CMV) infection can cause significant disease in [facility] immunosuppressed patients. However, it is common for CMV to manifest as a [facility] limited infection which is of no clinical significance in immunosuppressed patients or in healthy individuals. Viral load measurements are helpful to identify clinical CMV infection and to guide the pre-emptive management of antiviral therapy.For treatment of CMV infection due to reactivation in transplant recipients, a threshold between 4,000 and 5,000 copies/mL is suggested.For treatment of primary CMV infection, a lower threshold can be used. CMV infection may also be monitored using weekly serial measurements. Serial measurements of CMV DNA viral load can be evaluated by identifying a 10-fold change, as well as assessing the CMV DNA viral load and the clinical context for each patient. The plasma CMV DNA viral load was detected using quantitative polymerase chain reaction and fluorescent monitoring of a specific hybridized probe. Genetic variation and other factors can affect the accuracy of nucleic acid testing. Therefore, the results should be interpreted in light of clinical data. A negative result may not exclude the presence of CMV disease. This test was developed and its performance characteristics determined by the [facility] Pathology Department, Section of Molecular Pathology. It has not been cleared or approved by the U.S. Food and Drug Administration (FDA), since FDA approval is not required for clinical use of the test. Validation was done as required by The Clinical Laboratory Improvement Amendments of 1988. Performing Organization Address City/State/Zipcode Phone Number [facility] [address] [place] [address] [facility] * Parvovirus B19 antibodies (IgG, IgM) (01/25/2019 8:02 AM CDT) Parvovirus Ab Profile. Refer to individual Parvovirus [facility] B19 IgG and Igm results INC[facility]PORATED Specimen Blood Performing Organization Address City/[facility]ode Phone Number [facility] [place] [address] [place], [place] [facility] [address] * Haptoglobin (01/25/2019 8:02 AM CDT) Haptoglobin 114 14 - 258 mg/dL [facility] Specimen Blood Performing Organization Address City/[facility] Cent[facility] Phone Number [address] [address] [facility] * Ferritin (01/25/2019 8:02 AM CDT) Ferritin 869 (H) 5 - 275 ng/mL [facility] Specimen Blood Performing Organization Address [facility] [place] [address] [phone] [place] [address] * Triglycerides (01/25/2019 3:26 AM CDT) Triglycerides 67 mg/dL [facility] Specimen Blood Narrative Performed At TRIGLYCERIDE REFERENCE RANGE [facility] Low Risk<150 [facility] Borderline Risk 150-199 High [id number] Very High Risk >=500 Performing Organization Address [facility] Phone Number [address] [address] [phone] [place] [address] * Magnesium (01/25/2019 3:26 AM CDT) Only the most recent of 2 results within the time period is included. Magnesium 2.6 1.6 - 2.6 mg/dL [facility] Specimen Blood Performing Organization Address [facility] Centercode Phone Number [address] [address] [facility] * Methotrexate level (01/24/2019 6:39 PM CDT) Methotrexate <0.04 umol/L [facility] Specimen Blood Performing Organization Address City/State/Zipcode Phone Number [address] [address] [phone] [place] [address] * jaimie RASCON (01/24/2019 2:08 AM CDT) ABO Grouping A [facility] Rh Factor POS [facility] Specimen Blood Performing Organization Address City/[facility] Cent[facility]ode Phone Number [address] * HIV-1 Antigen with HIV-1/2 Antibody (01/24/2019 2:08 AM CDT) HIV-1 Antigen with HIV NON-REACTIVE Nonreactive [facility] 1&2 Antibody [facility] Specimen Blood Performing Organization Address City/[facility] Cent[facility]ode Phone Number [address] * Hepatitis B Panel (01/24/2019 2:08 AM CDT) Hep B Core Total Ab NON-REACTIVE Nonreactive [facility] Hep B S Ab <8.0 <8.0 mIU/mL [facility] hepatitis B Surface Ag NON-REACTIVE Nonreactive [facility] Specimen Blood Performing Organization Address City/[facility]ode Phone Number [address] * Hepatitis C antibody (01/24/2019 2:08 AM CDT) Hepatitis C Ab NON-REACTIVE Nonreactive [facility] Specimen Blood Performing Organization Address City/[facility]/Zipcode Phone Number [place] [phone] * Vitamin B12 and Folate (01/24/2019 1:08 AM CDT) Vitamin B12 379 213 - 816 pg/mL [facility] Folate >40.0 >=7.0 ng/mL [facility] Specimen Blood Performing Organization Address City/[facility]/Zipcode Phone Number [address] [address] [facility] * Iron, TIBC, % sat. (without ferritin) (01/24/2019 1:08 AM CDT) Iron 252.0 (H) 40.0 - 160.0 ug/dL [facility] TIBC 285 250 - 450 ug/dL [facility] Iron % Saturation 88 (H) 20 - 55 % [facility] Specimen Blood Performing Organization Address [facility] Cent[facility] [place] [address] [phone] [place] [address] * Peripheral Blood Smear - Path Review (01/24/2019 1:01 AM CDT) RBC Morphology Comment: Hypochromic, [facility] macrocytic anemia with [facility] moderate anisocytosis and mild poikilocytosis, including occasional elliptocytes and spherocytes. Rare microcytes, dacrocytes and schistocytes also present. Mild rouleaux present. Minimal polychromasia. WBC Morphology Comment: Decreased with [facility] absolute neutropenia and [facility] lymphopenia. Platelet Morphology Comment: Markedly decreased. [facility] Normal granular morphology. [facility] Occasional large forms. No platelet clumping identified. Pathologist: Trent Byers MD (electronic [facility] signature) [facility] Specimen Blood Performing Organization Address City/[facility]/Zipcode Phone Number [address] [address] [facility] * Prothrombin time/INR (01/24/2019 1:01 AM CDT) Protime 14.2 11.7 - 14.7 seconds [facility] INR 1.1 <=5.9 [facility] Specimen Blood Narrative Performed At RECOMMENDED COUMADIN/WARFARIN INR THERAPY RANGES [facility] STANDARD DOSE: 2.0 - 3.0 Includes: PROPHYLAXIS for venous thrombosis, [facility] systemic embolization; TREATMENT for venous thrombosis and/or pulmonary embolus. HIGH RISK: Target INR is 2.5-3.5 for patients with mechanical heart valves. Performing Organization Address City/State/Zipcode Phone Number [facility] [address] [place] [address] [facility] * Lactate dehydrogenase (LDH) (01/24/2019 1:01 AM CDT) LDH 228 (H) 125 - 220 U/L [facility] Specimen Blood Performing Organization Address City/[facility]/Zipcode Phone Number [facility] [address] [place] [address] [facility] after 02/15/2018 Insurance Payer Benefit Subscriber ID Type Phone Address Plan / Group [employer] xxxxxxxxx [facility] HMO ALL Contracted Advance Directives For more information, please contact: [address] [address] Date Inactivated Comments Code Status Date Activated 02/04/2019 6:30 PM Full Code 01/23/2019 11:31 PM This code status was determined by: Patient
--- OUTSIDE RECORDS SUMMARY | 2019-02-16 15:46 | XMS REPORT | Continuity of Care Document ---
Author Author Kranthi judy [facility] Interface Address Unknown Phone Unavailable Problems Problem Status Onset Date Classification Date Reported Comments Source Rheumatoid arthritis with positive rheumatoid factor Active Problem 12/26/2018 Reed Martin Polyarthralgia Active Problem 12/26/2018 Reed Martin Polyarthritis Active Problem 12/26/2018 Reed Martin Long-term use of high-risk medication Active Problem 12/26/2018 Reed Martin Hip bursitis, left Active Problem 12/26/2018 Reed Martin Osteoporosis Active Problem 12/26/2018 Rede Martin Vitamin D deficiency, unspecified Active Problem 12/26/2018 Reed Martin Sarcoidosis, unspecified Active Problem 12/26/2018 Reed Martin Osteopenia Active Problem 12/26/2018 Reed Martin Hammertoe of left foot Active Problem 03/14/2018 [facility] Rheumatoid arthritis involving both feet, unspecified rheumatoid factor presence Active Problem 03/14/2018 [facility] Hammertoe of right foot Active Problem 03/14/2018 [facility] Type 2 diabetes mellitus without complications Active Problem 03/14/2018 [facility] Rheumatoid arthritis with rheumatoid factor of right ankle and foot without organ or systems involvement Active Problem 03/14/2018 [facility] Plantar fasciitis Active Problem 03/14/2018 [facility] 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/2018 [facility] Lipoma of right lower extremity Active Problem 03/14/2018 [facility] Rheumatoid arthritis with rheumatoid factor of left ankle and foot without organ or systems involvement Active Problem 03/14/2018 [facility] Lipoma of left lower extremity Active Problem 03/14/2018 [facility] Chronic kidney disease, stage 4 Active Problem 03/14/2018 [facility] Type 2 diabetes mellitus with diabetic chronic kidney disease Active Problem 03/14/2018 [facility] Primary osteoarthritis of right knee Active Problem 12/26/2018 Reed Martin Primary osteoarthritis of left knee Active Problem 12/26/2018 Reed Krafter Decreased renal function Active Diagnosis 08/16/2018 Reed Martin Anemia Active Diagnosis 08/16/2018 Reed Veronica 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 07/19/2018 Reed Veronica Medications Medication Details Route Status Patient Instructions [...] Once a week Martin 08/12/2018 Reed Martin Tylenol/Codeine #3 1 tablet as needed Orally Active 300-30 MG Orally TID Reeder 02/12/2018 Reed Martin Rasuvo as directed Subcutaneous Active 15 MG/0.3ML Subcutaneous Once a week Martin 11/27/2017 Reed Martin Methotrexate 5 tablets Orally Active 2.5 MG Orally once a week Reeder 11/25/2017 Reed Martin Gabapentin 1 capsule Orally Active 400 MG Orally Three times a day [place] Reed Martin Omeprazole 1 capsule Orally Active 40 MG Orally Once a day [facility] Reed Martin Methotrexate take 5 tablets by mouth every week Orally Active 2.5 MG Orally Once a week [place] Reed Martin Vitamin D 1 tablet Orally Active 1000 UNIT Orally Once a day [place] Reed Martin Folic Acid 1 tablet Orally Active 400 MCG Orally Once a day [place] Reed Martin Tylenol/Codeine #3 1 tablet as needed Orally Active 300-30 MG Orally TID [place] Reed Martin Ropinirole HCl 1 tablet 1 to 3 hours before bedtime Orally Active 0.5 MG Orally Once a day [place] Reed Martin Lasix 1 tablet Orally Active 40 MG Orally Once a day [place] Reed Martin Lisinopril-Hydrochlorothiazide 1 tablet Orally Active 20-12.5 MG Orally Once a day [place] Reed Martin Bumetanide 1 tablet Orally Active 1 MG Orally once a day [place] Reed Veronica Almendarez as directed Subcutaneous Active 300 UNIT/ML Subcutaneous Varinder Martin Basaglbailey KwikPen 15 units Subcutaneous Active 100 UNIT/ML Subcutaneous once a day at bedtime Varinder Murphyip Veronica Methotrexate 5 tablets Orally Active 2.5 MG Orally once a week Reederdiogo Krafter Lisinopril/Hydrochlorothiazide (Lisinopril-Hctz 20-12.5 Mg Tab) 1 Each Tablet Daily Active [facility] Methotrexate Sodium (Methotrexate) 2.5 Mg Tablet Daily Active [facility] Omeprazole 40 Mg Capsule.dr Daily Active [facility] Pioglitazone Hcl 45 Mg Tablet Daily Active [facility] Ropinirole Hcl 0.5 Mg Tablet Three Times A Day Active [facility] Allergies, Adverse Reactions, Alerts Substance Category Reaction [...] Results Value Reference Range Date Interpretation Comments Source Blood leukocytes automated count (number/volume) 1.18 4.8 - 10.8 01/23/2019 [facility] Blood erythrocytes automated count (number/volume) 2.03 3.6 - 5.1 01/23/2019 [facility] Blood hemoglobin measurement (moles/volume) 6.8 12.0 - 16.0 01/23/2019 [facility] Automated blood hematocrit (volume fraction) 21.3 34.2 - 44.1 01/23/2019 [facility] Automated erythrocyte mean corpuscular volume 104.9 81 - 99 01/23/2019 [facility] Automated erythrocyte mean corpuscular hemoglobin (mass per erythrocyte) 33.5 28 - 32 01/23/2019 [facility] Automated erythrocyte mean corpuscular hemoglobin concentration measurement (mass/volume) 31.9 31 - 35 01/23/2019 [facility] RDW BldCo-Rto 14.0 11.7 - 14.4 01/23/2019 [facility] Automated blood platelet count (count/volume) 4 140 - 360 01/23/2019 [facility] Automated blood segmented neutrophil count as percentage of total leukocytes 49.2 38.7 - 80.0 01/23/2019 [facility] Automated blood lymphocyte count as percentage ot total leukocytes 45.8 18.0 - 39.1 01/23/2019 [facility] Automated blood monocyte count as percentage of total leukocytes 0.8 4.4 - 11.3 01/23/2019 [facility] Automated blood eosinophil count as percentage of total leukocytes 3.4 0.0 - 6.0 01/23/2019 [facility] Automated blood basophil count as percentage of total leukocytes 0.0 0.0 - 1.0 01/23/2019 [facility] IM GRANULOCYTES % 0.8 0.0 - 1.0 01/23/2019 [facility] Automated blood neutrophil count 0.6 2.1 - 6.9 01/23/2019 [facility] Blood lymphocytes count (number/volume) 0.5 1.0 - 3.2 01/23/2019 [facility] Blood monocytes automated count (number/volume) 0.0 0.2 - 0.8 01/23/2019 [facility] Automated blood eosinophil count 0.0 0.0 - 0.4 01/23/2019 [facility] Automated blood basophil count (count/volume) 0.0 0.0 - 0.1 01/23/2019 [facility] Absolute Immature Granulocyte (auto 0.01 0 - 0.1 01/23/2019 [facility] Differential Total Cells Counted 50 01/23/2019 [facility] Manual blood neutrophils/100 leukocytes 44 40 - 74 01/23/2019 [facility] Manual blood lymphocytes/100 leukocytes 42 19 - 48 01/23/2019 [facility] Manual blood eosinophil count as percentage of total leukocytes 4 0 - 7 01/23/2019 [facility] Blood lymphocytes variant count (number/volume) 10 01/23/2019 [facility] Blood nucleated erythrocytes count (number/volume) 1 01/23/2019 [facility] Blood platelets count by estimate (number/volume) MARKEDLY DECREASED 01/23/2019 [facility] Platelet morphology FEW LARGE 01/23/2019 [facility] Blood hypochromia detection by light microscopy SLIGHT 01/23/2019 [facility] RBC morphology NORMAL 01/23/2019 [facility] Prothrombin time (PT) in platelet poor plasma by coagulation assay 13.4 11.9 - 14.5 01/23/2019 [facility] INR in Platelet poor plasma by Coagulation assay 0.97 01/23/2019 [facility] Activated partial thromboplastin time (aPTT) in platelet poor plasma bycoagulation assay 27.3 23.8 - 35.5 01/23/2019 [facility] Serum or plasma sodium measurement (moles/volume) 137 136 - 145 01/23/2019 [facility] Serum or plasma potassium measurement (moles/volume) 4.8 3.5 - 5.1 01/23/2019 [facility] Serum or plasma chloride measurement (moles/volume) 106 98 - 107 01/23/2019 [facility] Serum or plasma carbon dioxide, total measurement (moles/volume) 20 22 - 29 01/23/2019 [facility] Serum or plasma anion gap 15.8 8 - 16 01/23/2019 [facility] Serum or plasma urea nitrogen measurement (mass/volume) 80 7 - 26 01/23/2019 [facility] Serum or plasma creatinine measurement (mass/volume) 2.88 0.57 - 1.11 01/23/2019 [facility] Serum or plasma urea nitrogen/creatinine mass ratio 28 6 - 25 01/23/2019 [facility] Estimated glomerular filtration rate (GFR) determination 20 60 01/23/2019 [facility] Glucose measurement 139 74 - 118 01/23/2019 [facility] Serum or plasma calcium measurement (mass/volume) 7.8 8.4 - 10.2 01/23/2019 [facility] Vital Signs Vital Sign Value Date Comments Source Weight 184 11/13/2018 Reed Martin Height 63 11/13/2018 Reed Martin Temperature Oral (F) 97.1 F 11/13/2018 Rede Martin Heart Rate 82 11/13/2018 Reed Martin Diastolic (mm Hg) 70 11/13/2018 Reed Martin Systolic (mm Hg) 116 11/13/2018 Reed Martin Weight 196.8 08/14/2018 Reed Martin Height 63 08/14/2018 Reed Martin Temperature Oral (F) 97.0 F 08/14/2018 Reed Martin Heart Rate 80 08/14/2018 Reed Martin Diastolic (mm Hg) 58 08/14/2018 Reed Martin Systolic (mm Hg) 100 08/14/2018 Reed Martin Weight 193.2 07/01/2018 Reed Martin Height 63 07/01/2018 Reed Martin Temperature Oral (F) 97.0 F 07/01/2018 Reed Martin Heart Rate 74 07/01/2018 Rede Martin Diastolic (mm Hg) 72 07/01/2018 Reed Martin Systolic (mm Hg) 118 07/01/2018 Reed Martin Weight 205 05/14/2018 Reed Martin Height 63 05/14/2018 Reed Martin Temperature Oral (F) 96.4 F 05/14/2018 Reed Martin Heart Rate 72 05/14/2018 Reed Martin Diastolic (mm Hg) 76 05/14/2018 Reed Martin Systolic (mm Hg) 110 05/14/2018 Reed Martin Weight 211.8 02/11/2018 Reed Martin Height 63 02/11/2018 Reed Martin Temperature Oral (F) 96.9 F 02/11/2018 Reed Martin Heart Rate 74 02/11/2018 Reed Martin [...] Systolic (mm Hg) 108 08/06/2017 Reed Martin Encounters Location Location Details Encounter Type Encounter Number Reason For Visit Attending Provider ADM Date DC Date Status Source Departed Emergency Room [id number] GRZEGORZ UMANZOR MD 01/23/2019 01/23/2019 [facility] Procedures Procedure Code Date Perfomer Comments Source Computed tomography of brain without radiopaque contrast [id number] 01/23/2019 GUNNAR [facility]
--- OUTSIDE RECORDS SUMMARY | 2019-02-16 15:47 | XMS REPORT ---
Author Author [facility] Address Unknown Phone Unavailable Care Team Providers Care Change Consultant Name Role Phone Kylah SANDOVAL Unavailable Unavailable Earline UMANZOR Unavailable Unavailable Problems This patient has no known problems. Allergies, Adverse Reactions, Alerts This patient has no known allergies or adverse reactions. Medications This patient has no known medications. Encounters Start Date/Time End Date/Time Encounter Type Admission Type Attending [facility] Care Facility Care Department Encounter ID 2019-01-29 15:06:40 Outpatient MHSE [id number] Results Test Description Test Time Test Comments Text Results Atomic Results Result Comments ERYTHROPOIETIN 2019-02-09 08:52:00 SCAN RESULT (test kdby=[id number]) BONE MARROW [id number] 13:02:00Bone Marrow Pathology Report Case: [id number] Authorizing Provider: Mckenzie Rojas Collected: 01/30/2019 1020 Ordering Location: [address] Received: 01/30/2019 1136 Service Pathologist: Yordy Painter MD Specimens: A) - Iliac Crest, Right B) - C) - Karyotype is reported to be 46,XX[20].See attached scanned report.Addendum electronically signed by Yordy Painter MD on 02/05/2019 at 1:02 PMBONE MARROW ASPIRATE, CLOT, AND DECALCIFIED BIOPSY:NORMOCELLULAR MARROW (40%) WITH DYSMEGAKARYOPOIESIS AND RELATIVE ERYTHROID HYPERPLASIA.BLASTS ARE INCREASED (8% BY MANUAL COUNT).CYTOGENETIC STUDIES PENDING, SEE DIAGNOSTIC COMMENT.PERIPHERAL BLOOD:PANCYTOPENIA.NO CIRCULATING BLASTS. Signing Pathologist Direct Phone Line: [phone] signed by Yordy Painter MD on 02/03/2019 at 9:12 AMThis patient has a reported clinical history of persistent pancytopenia as per the electronic [facility]. In the absence of non-neoplastic etiologies or acute phase responses, the findings raise concern for the presence of a myelodysplastic syndrome. However correlation with clinical follow up and molecular cytogenetic studies is required for complete interpretation. The results of these ancillary studies will be released in an addendum report. This case was discussed with Dr. Mckenzie Rojas, clinical geothermal operating engineer, on 02/02/2019. [id number]; 91882; 18980 x 2; 88067; 21148, 15040, [id number]. Bone marrow clot. C. Bone marrow biopsy Part B. Received in formalin, labeled with the patient's information and "marrow" is a dupont-red blood clot that measures measure 2.1 x 1.2 x 0.3 cm. The specimen is submitted entirely following filtration in cassette B1.Part C. Received in formalin, labeled with the patient's information and "bone marrow biopsy" is a dupont-red bone marrow biopsy that measures measure 1.4 cm long x 0.2 cm in diameter. The specimen is submitted entirely following filtration in cassette C1. /sanjay BONE M ARROW ASPIRATE: QUALITY: Aspirate- Adequate Touch imprint- AdequateMARROW DIFF ERENTIAL COUNT: Number of cells counted:500 8% Blasts 7% Promyelocytes 15% Myelo cytes/Metamyelocytes 10% Bands/Segmented granulocytes 4% Eosinophils and precurs ors 1% Basophils and precursors 40% Erythroid precursors 5% Lymphocytes 5% Monoc ytes 5% Plasma cells Myeloid Erythroid Ratio: 1.79Blasts: IncreasedErythropoiesi s: Relatively increased. Mild megaloblastoid changesMyelopoiesis: Decreased, wit hout significant morphologic abnormalities.Megakaryocytes: Increased, with numer ous hypolobated and occasional multinucleated forms.Stainable iron is identified on rare marrow particles present on the aspirate smear. Ring sideroblasts are n ot identified. BONE MARROW BIOPSY: Biopsy- AdequateClot- AdequateThe marrow ce llularity is approximately 40%. Megakaryocytes are increased with dyspoietic for ms including clustering and hypolobation. CD34 performed on the core biopsy (blo ck C1) highlights slightly increased blasts, which approach approximately the ra nge of 5 to 10% as estimated on the core biopsy. Stainable iron is identified on the clot section by the Perls iron special stain and appears to be slightly inc reased. Occasional ring sideroblasts are identified, less than 1% of erythroid p recursors. PERIPHERAL BLOOD:Red cells: Anemia, mild anisopoikilocytosis White c ells: Leukopenia. No definitive circulating blasts.Platelets: Unremarkable.This bone marrow core biopsy and aspirate procedure was performed by Dr. Angella Villareal, clinical pathologist.The interpretation of this case included the use of immunohistochemistry or special stains.BLOCK B1- PERLS IRONBLOCK C1- RC39Jwlmpcf istochemistry technical testing was performed at [facility] where it was developed and its performance characteristi cs were determined. It has not been cleared or approved by the U.S. Food and Delmer g Administration. The FDA has determined that such clearance or approval is not necessary. The test is used for clinical purposes. It should not be regarded as investigational or for research. This laboratory is certified under the Clinical Laboratory Improvement Amendments of 1988 (CLIA-88) as qualified to perform hig h complexity clinical laboratory testing.PAROVIRUS B19 PCR, QUALITATIVE 2019-02-05 09:14:00* Test Item Value Reference Range Comments SCAN RESULT (test xvah=[id number]) CBC W/PLT COUNT & AUTO [id number] 13:46:00* Test Item Value Reference Range Comments WHITE BLOOD CELL COUNT (BEAKER) (test vkdn=614) 2.2 K/ L 3.5-10.5 RED BLOOD CELL COUNT (BEAKER) (test uiqn=642) 2.81 M/ L 3.93-5.22 HEMOGLOBIN (BEAKER) (test xlow=424) 9.1 GM/DL 11.2-15.7 HEMATOCRIT (BEAKER) (test woxw=022) 27.8 % 34.1-44.9 MEAN CORPUSCULAR VOLUME (BEAKER) (test dttf=352) 98.9 fL 79.4-94.8 MEAN CORPUSCULAR HEMOGLOBIN (BEAKER) (test hxvc=593) 32.4 pg 25.6-32.2 MEAN CORPUSCULAR HEMOGLOBIN CONC (BEAKER) (test ipce=427) 32.7 GM/DL 32.2-35.5 RED CELL DISTRIBUTION WIDTH (BEAKER) (test fbnd=935) 14.9 % 11.7-14.4 PLATELET COUNT (BEAKER) (test cfmv=260) 530 K/CU MM 150-450 MEAN PLATELET VOLUME (BEAKER) (test dabi=469) 9.7 fL 9.4-12.3 NUCLEATED RED BLOOD CELLS (BEAKER) (test vcjm=408) 0 /100 WBC 0-0 (CELLAVISION MANUAL DIFF)2019-02-04 13:46:00* Test Item Value Reference Range Comments NEUTROPHILS - REL (CELLAVISION)(BEAKER) (test ieyl=1214) 17 % LYMPHOCYTES - REL (CELLAVISION)(BEAKER) (test volt=2810) 44 % MONOCYTES - REL (CELLAVISION)(BEAKER) (test qebr=7016) 22 % EOSINOPHILS - REL (CELLAVISION)(BEAKER) (test uatd=9954) 8 % BASOPHILS - REL (CELLAVISION)(BEAKER) (test hfsl=0069) 1 % METAMYELOCYTES - REL (CELLAVISION)(BEAKER) (test zzpu=5246) 1 % 0-0 ATYPICAL LYMPHOCYTES - REL (CELLAVISION)(BEAKER) (test xkfm=9927) 7 % 0-0 NEUTROPHILS - ABS (CELLAVISION)(BEAKER) (test imgv=3139) 0.37 K/ul 1.56-6.13 LYMPHOCYTES - ABS (CELLAVISION)(BEAKER) (test dter=3040) 0.97 K/ul 1.18-3.74 MONOCYTES - ABS (CELLAVISION)(BEAKER) (test elro=8918) 0.48 K/uL 0.24-0.36 EOSINOPHILS - ABS (CELLAVISION)(BEAKER) (test ddiw=9891) 0.18 K/uL 0.04-0.36 BASOPHILS - ABS (CELLAVISION)(BEAKER) (test ttcd=2480) 0.02 K/uL 0.01-0.08 METAMYELOCYTES - ABS (CELLAVISION)(BEAKER) (test xglg=2521) 0.02 K/uL 0.00-0.00 ATYPICAL LYMPHOCYTES - ABS (CELLAVISION)(BEAKER) (test hndh=6988) 0.15 K/uL 0.00-0.00 TOTAL COUNTED (BEAKER) (test lwke=4120) 100 WBC MORPHOLOGY (BEAKER) (test bpkd=563) Normal GIANT PLATELETS (BEAKER) (test rbli=175) Present LARGE PLT(BEAKER) (test vnkd=6676) Present POLYCHROMATOPHILLIC RBCS(BEAKER) (test jjxf=938) 1+ few HYPOCHROMIA (BEAKER) (test nlnw=781) 1+ few ANISOCYTOSIS (BEAKER) (test rlnl=892) 1+ few POIKILOCYTES (BEAKER) (test kqlp=994) 1+ few SCHISTOCYTES (BEAKER) (test bswb=967) 1+ few SPHEROCYTES (BEAKER) (test bahw=762) 1+ few OVALOCYTES (BEAKER) (test rjvr=436) 1+ few ACANTHOCYTES (BEAKER) (test mvxi=455) 1+ few ARTIFACT (CELLAVISION)(BEAKER) (test obbf=8850) Present HELMET CELLS (CELLAVISION)(BEAKER) (test zovv=9202) 1+ few PLATELET CONCENTRATION (CELLAVISION)(BEAKER) (test ohxt=1633) Increased Received comment: User comments: Slide comments: POCT-GLUCOSE [id number] 12:04:00* Test Item Value Reference Range Comments POC-GLUCOSE METER (BEAKER) (test njxj=0355) 133 mg/dL 70-110 TESTED AT [address] [address] POCT-GLUCOSE [id number] 09:23:00* Test Item Value Reference Range Comments POC-GLUCOSE METER (BEAKER) (test ijre=2088) 77 mg/dL 70-110 TESTED AT [address] [address] POCT-GLUCOSE [id number] 20:40:00* Test Item Value Reference Range Comments POC-GLUCOSE METER (BEAKER) (test ipih=7212) 101 mg/dL 70-110 TESTED AT [address] [address] POCT-GLUCOSE [id number] 16:35:00* Test Item Value Reference Range Comments POC-GLUCOSE METER (BEAKER) (test dsgl=6540) 103 mg/dL 70-110 TESTED AT [address] [address] CBC W/PLT COUNT & AUTO [id number] 12:52:00* Test Item Value Reference Range Comments WHITE BLOOD CELL COUNT (BEAKER) (test xgyn=258) 1.8 K/ L 3.5-10.5 RED BLOOD CELL COUNT (BEAKER) (test eypf=493) 2.79 M/ L 3.93-5.22 HEMOGLOBIN (BEAKER) (test gshp=372) 8.9 GM/DL 11.2-15.7 HEMATOCRIT (BEAKER) (test ehob=175) 27.8 % 34.1-44.9 MEAN CORPUSCULAR VOLUME (BEAKER) (test vtcc=088) 99.6 fL 79.4-94.8 MEAN CORPUSCULAR HEMOGLOBIN (BEAKER) (test gdgz=338) 31.9 pg 25.6-32.2 MEAN CORPUSCULAR HEMOGLOBIN CONC (BEAKER) (test kxnf=750) 32.0 GM/DL 32.2-35.5 RED CELL DISTRIBUTION WIDTH (BEAKER) (test hwlr=169) 14.8 % 11.7-14.4 PLATELET COUNT (BEAKER) (test uttf=870) 462 K/CU MM 150-450 MEAN PLATELET VOLUME (BEAKER) (test xwso=090) 9.9 fL 9.4-12.3 NUCLEATED RED BLOOD CELLS (BEAKER) (test whwc=078) 0 /100 WBC 0-0 (CELLAVISION MANUAL DIFF)2019-02-03 12:52:00* Test Item Value Reference Range Comments NEUTROPHILS - REL (CELLAVISION)(BEAKER) (test umkg=5829) 21 % LYMPHOCYTES - REL (CELLAVISION)(BEAKER) (test bzwe=3991) 37 % MONOCYTES - REL (CELLAVISION)(BEAKER) (test nmyv=9551) 19 % EOSINOPHILS - REL (CELLAVISION)(BEAKER) (test fdvn=5089) 19 % BASOPHILS - REL (CELLAVISION)(BEAKER) (test uwps=9738) 3 % METAMYELOCYTES - REL (CELLAVISION)(BEAKER) (test lxrx=2438) 1 % 0-0 MYELOCYTES - REL (CELLAVISION)(BEAKER) (test ppmn=7020) 1 % 0-0 NEUTROPHILS - ABS (CELLAVISION)(BEAKER) (test ejdk=0429) 0.38 K/ul 1.56-6.13 LYMPHOCYTES - ABS (CELLAVISION)(BEAKER) (test nmik=2815) 0.67 K/ul 1.18-3.74 MONOCYTES - ABS (CELLAVISION)(BEAKER) (test tfvx=5533) 0.34 K/uL 0.24-0.36 EOSINOPHILS - ABS (CELLAVISION)(BEAKER) (test ooib=8846) 0.34 K/uL 0.04-0.36 BASOPHILS - ABS (CELLAVISION)(BEAKER) (test tweh=5102) 0.05 K/uL 0.01-0.08 METAMYELOCYTES - ABS (CELLAVISION)(BEAKER) (test cfrh=5160) 0.02 K/uL 0.00-0.00 MYELOCYTES-ABS (CELLAVISION)(BEAKER) (test xtsz=2148) 0.02 K/uL 0.00-0.00 TOTAL COUNTED (BEAKER) (test wovk=9465) 100 SMUDGE CELLS (BEAKER) (test yyge=3792) Present GIANT PLATELETS (BEAKER) (test svwx=387) Present ANISOCYTOSIS (BEAKER) (test wdyg=471) 1+ few ARTIFACT (CELLAVISION)(BEAKER) (test iflq=5941) Present PLATELET CONCENTRATION (CELLAVISION)(BEAKER) (test ggez=5211) Increased Received comment: User comments: Slide comments: POCT-GLUCOSE [id number] 12:26:00* Test Item Value Reference Range Comments POC-GLUCOSE METER (BEAKER) (test jrlu=4917) 86 mg/dL 70-110 TESTED AT [facility] [address] [facility] [address] POCT-GLUCOSE [id number] 07:54:00* Test Item Value Reference Range Comments POC-GLUCOSE METER (BEAKER) (test btyd=3945) 75 mg/dL 70-110 TESTED AT [facility] [address] [facility] [address] [id number] 06:16:00* Test Item Value Reference Range Comments PHOSPHORUS (BEAKER) (test vikx=041) 3.2 mg/dL 2.3-4.7 BASIC METABOLIC [id number] 06:16:00* Test Item Value Reference Range Comments SODIUM (BEAKER) (test rfjh=089) 138 meq/L 136-145 POTASSIUM (BEAKER) (test jthw=474) 4.1 meq/L 3.5-5.1 CHLORIDE (BEAKER) (test aqvx=431) 110 meq/L 98-107 CO2 (BEAKER) (test aqwq=959) 21 meq/L 22-29 BLOOD UREA NITROGEN (BEAKER) (test qdhy=542) 25 mg/dL 7-21 CREATININE (BEAKER) (test bihs=145) 1.52 mg/dL 0.57-1.25 GLUCOSE RANDOM (BEAKER) (test cyuz=103) 72 mg/dL 70-105 CALCIUM (BEAKER) (test yrlk=600) 9.0 mg/dL 8.4-10.2 EGFR (BEAKER) (test rxqj=3734) 41 mL/min/1.73 sq m ESTIMATED GFR IS NOT ACCURATE CREATININE CLEARANCE IN PREDICTING GLOMERULAR FILTRATION RATE. ESTIMATED GFR IS NOT APPLICABLE FOR DIALYSIS PATIENTS. POCT-GLUCOSE [id number] 21:07:00* Test Item Value Reference Range Comments POC-GLUCOSE METER (BEAKER) (test jluw=2157) 99 mg/dL 70-110 TESTED AT [address] [address] POCT-GLUCOSE [id number] 16:35:00* Test Item Value Reference Range Comments POC-GLUCOSE METER (BEAKER) (test abpg=5967) 112 mg/dL 70-110 TESTED AT [address] [address] POCT-GLUCOSE [id number] 11:48:00* Test Item Value Reference Range Comments POC-GLUCOSE METER (BEAKER) (test yqki=5867) 132 mg/dL 70-110 TESTED AT [address] [address] CBC W/PLT COUNT & AUTO [id number] 08:15:00* Test Item Value Reference Range Comments WHITE BLOOD CELL COUNT (BEAKER) (test koqw=070) 1.5 K/ L 3.5-10.5 RED BLOOD CELL COUNT (BEAKER) (test atml=701) 2.75 M/ L 3.93-5.22 HEMOGLOBIN (BEAKER) (test cqet=616) 8.8 GM/DL 11.2-15.7 HEMATOCRIT (BEAKER) (test auvz=113) 27.3 % 34.1-44.9 MEAN CORPUSCULAR VOLUME (BEAKER) (test apog=061) 99.3 fL 79.4-94.8 MEAN CORPUSCULAR HEMOGLOBIN (BEAKER) (test ghme=873) 32.0 pg 25.6-32.2 MEAN CORPUSCULAR HEMOGLOBIN CONC (BEAKER) (test etwe=142) 32.2 GM/DL 32.2-35.5 RED CELL DISTRIBUTION WIDTH (BEAKER) (test ttam=512) 14.6 % 11.7-14.4 PLATELET COUNT (BEAKER) (test jbym=118) 383 K/CU MM 150-450 MEAN PLATELET VOLUME (BEAKER) (test ould=792) 10.6 fL 9.4-12.3 NUCLEATED RED BLOOD CELLS (BEAKER) (test qovi=895) 0 /100 WBC 0-0 (CELLAVISION MANUAL DIFF)2019-02-02 08:15:00* Test Item Value Reference Range Comments NEUTROPHILS - REL (CELLAVISION)(BEAKER) (test vhgo=9801) 13 % LYMPHOCYTES - REL (CELLAVISION)(BEAKER) (test jufn=3241) 45 % MONOCYTES - REL (CELLAVISION)(BEAKER) (test ziqq=3113) 23 % EOSINOPHILS - REL (CELLAVISION)(BEAKER) (test lvzo=8243) 16 % BASOPHILS - REL (CELLAVISION)(BEAKER) (test pfby=5995) 2 % ATYPICAL LYMPHOCYTES - REL (CELLAVISION)(BEAKER) (test ocbp=1307) 1 % 0-0 NEUTROPHILS - ABS (CELLAVISION)(BEAKER) (test dpck=5881) 0.20 K/ul 1.56-6.13 LYMPHOCYTES - ABS (CELLAVISION)(BEAKER) (test tgxq=2506) 0.68 K/ul 1.18-3.74 MONOCYTES - ABS (CELLAVISION)(BEAKER) (test nvys=6163) 0.35 K/uL 0.24-0.36 EOSINOPHILS - ABS (CELLAVISION)(BEAKER) (test otja=3092) 0.24 K/uL 0.04-0.36 BASOPHILS - ABS (CELLAVISION)(BEAKER) (test ljkj=8467) 0.03 K/uL 0.01-0.08 ATYPICAL LYMPHOCYTES - ABS (CELLAVISION)(BEAKER) (test pcre=3640) 0.02 K/uL 0.00-0.00 TOTAL COUNTED (BEAKER) (test cgzl=9828) 100 WBC MORPHOLOGY (BEAKER) (test ftek=208) Normal PLT MORPHOLOGY (BEAKER) (test lvkh=291) Normal ANISOCYTOSIS (BEAKER) (test axsx=167) 1+ few MICROCYTES (BEAKER) (test mqwc=696) 1+ few POIKILOCYTES (BEAKER) (test bhjt=409) 1+ few ARTIFACT (CELLAVISION)(BEAKER) (test kila=9480) Present PLATELET CONCENTRATION (CELLAVISION)(BEAKER) (test inlp=6884) Adequate Received comment: User comments: Slide comments: POCT-GLUCOSE [id number] 07:59:00* Test Item Value Reference Range Comments POC-GLUCOSE METER (BEAKER) (test ktus=5502) 85 mg/dL 70-110 TESTED AT [address] [address] POCT-GLUCOSE [id number] 20:43:00* Test Item Value Reference Range Comments POC-GLUCOSE METER (BEAKER) (test jgvr=8873) 111 mg/dL 70-110 TESTED AT [address] [address] POCT-GLUCOSE [id number] 18:07:00* Test Item Value Reference Range Comments POC-GLUCOSE METER (BEAKER) (test opxq=1421) 144 mg/dL 70-110 TESTED AT [address] [address] (CELLAVISION MANUAL DIFF)2019-02-01 14:23:00* Test Item Value Reference Range Comments NEUTROPHILS - REL (CELLAVISION)(BEAKER) (test mpdt=2163) 24 % LYMPHOCYTES - REL (CELLAVISION)(BEAKER) (test yjay=2585) 36 % MONOCYTES - REL (CELLAVISION)(BEAKER) (test xwzv=0011) 9 % EOSINOPHILS - REL (CELLAVISION)(BEAKER) (test jqgh=0957) 26 % BASOPHILS - REL (CELLAVISION)(BEAKER) (test mqna=9744) 1 % ATYPICAL LYMPHOCYTES - REL (CELLAVISION)(BEAKER) (test aosa=3303) 3 % 0-0 NEUTROPHILS - ABS (CELLAVISION)(BEAKER) (test odsx=3206) 0.31 K/ul 1.56-6.13 LYMPHOCYTES - ABS (CELLAVISION)(BEAKER) (test rlgj=8370) 0.47 K/ul 1.18-3.74 MONOCYTES - ABS (CELLAVISION)(BEAKER) (test kdyv=1237) 0.12 K/uL 0.24-0.36 EOSINOPHILS - ABS (CELLAVISION)(BEAKER) (test wody=1906) 0.34 K/uL 0.04-0.36 BASOPHILS - ABS (CELLAVISION)(BEAKER) (test igcb=9930) 0.01 K/uL 0.01-0.08 ATYPICAL LYMPHOCYTES - ABS (CELLAVISION)(BEAKER) (test ntwt=9097) 0.04 K/uL 0.00-0.00 TOTAL COUNTED (BEAKER) (test udsb=1665) 100 MANUAL NRBC PER 100 CELLS (BEAKER) (test hqrx=5542) 1 /100 WBC 0-0 GIANT PLATELETS (BEAKER) (test hgpa=105) Present PLASMA CELLS(BEAKER) (test uwrb=1532) Present POLYCHROMATOPHILLIC RBCS(BEAKER) (test djgl=195) 1+ few ANISOCYTOSIS (BEAKER) (test jvgf=769) 1+ few POIKILOCYTES (BEAKER) (test unkv=424) 1+ few SPHEROCYTES (BEAKER) (test tyza=783) 1+ few ELLIPTOCYTES (BEAKER) (test tiga=622) 1+ few OVALOCYTES (BEAKER) (test gcpt=089) 1+ few TEAR DROP CELLS (BEAKER) (test nmxb=730) 1+ few BASOPHILIC STIPPLING (BEAKER) (test umri=965) Present ARTIFACT (CELLAVISION)(BEAKER) (test ufak=0430) Present PLATELET CONCENTRATION (CELLAVISION)(BEAKER) (test dcvo=1123) Adequate Received comment: User comments: Slide comments: CBC W/PLT COUNT & AUTO [id number] 14:22:00* Test Item Value Reference Range Comments WHITE BLOOD CELL COUNT (BEAKER) (test xwft=035) 1.3 K/ L 3.5-10.5 RED BLOOD CELL COUNT (BEAKER) (test dlwh=431) 2.93 M/ L 3.93-5.22 HEMOGLOBIN (BEAKER) (test wjpb=221) 9.5 GM/DL 11.2-15.7 HEMATOCRIT (BEAKER) (test nudg=051) 28.7 % 34.1-44.9 MEAN CORPUSCULAR VOLUME (BEAKER) (test njxx=280) 98.0 fL 79.4-94.8 MEAN CORPUSCULAR HEMOGLOBIN (BEAKER) (test zurx=675) 32.4 pg 25.6-32.2 MEAN CORPUSCULAR HEMOGLOBIN CONC (BEAKER) (test ueyi=367) 33.1 GM/DL 32.2-35.5 RED CELL DISTRIBUTION WIDTH (BEAKER) (test ejcy=706) 14.6 % 11.7-14.4 PLATELET COUNT (BEAKER) (test vzod=374) 290 K/CU MM 150-450 MEAN PLATELET VOLUME (BEAKER) (test ndqh=431) 10.6 fL 9.4-12.3 NUCLEATED RED BLOOD CELLS (BEAKER) (test kyvp=040) 0 /100 WBC 0-0 POCT-GLUCOSE [id number] 12:33:00* Test Item Value Reference Range Comments POC-GLUCOSE METER (BEAKER) (test xxtb=3227) 110 mg/dL 70-110 TESTED AT [address] [address] POCT-GLUCOSE [id number] 08:27:00* Test Item Value Reference Range Comments POC-GLUCOSE METER (BEAKER) (test etpn=7084) 80 mg/dL 70-110 TESTED AT [address] [address] BASIC METABOLIC [id number] 07:23:00* Test Item Value Reference Range Comments SODIUM (BEAKER) (test ltep=733) 140 meq/L 136-145 POTASSIUM (BEAKER) (test wnfb=326) 4.2 meq/L 3.5-5.1 CHLORIDE (BEAKER) (test foym=205) 111 meq/L 98-107 CO2 (BEAKER) (test huzg=869) 22 meq/L 22-29 BLOOD UREA NITROGEN (BEAKER) (test lnvm=658) 26 mg/dL 7-21 CREATININE (BEAKER) (test xtoo=658) 1.60 mg/dL 0.57-1.25 GLUCOSE RANDOM (BEAKER) (test kmny=796) 76 mg/dL 70-105 CALCIUM (BEAKER) (test efmu=601) 9.2 mg/dL 8.4-10.2 EGFR (BEAKER) (test wyyt=8312) 39 mL/min/1.73 sq m ESTIMATED GFR IS NOT ACCURATE CREATININE CLEARANCE IN PREDICTING GLOMERULAR FILTRATION RATE. ESTIMATED GFR IS NOT APPLICABLE FOR DIALYSIS PATIENTS. POCT-GLUCOSE [id number] 21:15:00* Test Item Value Reference Range Comments POC-GLUCOSE METER (BEAKER) (test huqa=1154) 93 mg/dL 70-110 TESTED AT [place] [id number] BLOOD [id number] 20:01:00* Test Item Value Reference Range Comments CULTURE (BEAKER) (test pynk=4414) No growth in 5 days BLOOD [id number] 20:01:00* Test Item Value Reference Range Comments CULTURE (BEAKER) (test cpjm=9747) No growth in 5 days POCT-GLUCOSE [id number] 17:05:00* Test Item Value Reference Range Comments POC-GLUCOSE METER (BEAKER) (test ponw=5110) 118 mg/dL 70-110 TESTED AT [address] [address] CBC W/PLT COUNT & AUTO [id number] 13:30:00* Test Item Value Reference Range Comments WHITE BLOOD CELL COUNT (BEAKER) (test zwkv=403) 1.4 K/ L 3.5-10.5 RED BLOOD CELL COUNT (BEAKER) (test cwhq=144) 3.08 M/ L 3.93-5.22 HEMOGLOBIN (BEAKER) (test znis=521) 9.9 GM/DL 11.2-15.7 HEMATOCRIT (BEAKER) (test nvsd=038) 30.4 % 34.1-44.9 Patient trasfused MEAN CORPUSCULAR VOLUME (BEAKER) (test cwdi=209) 98.7 fL 79.4-94.8 MEAN CORPUSCULAR HEMOGLOBIN (BEAKER) (test wvrd=618) 32.1 pg 25.6-32.2 MEAN CORPUSCULAR HEMOGLOBIN CONC (BEAKER) (test nvnl=615) 32.6 GM/DL 32.2-35.5 RED CELL DISTRIBUTION WIDTH (BEAKER) (test kwwo=237) 14.5 % 11.7-14.4 PLATELET COUNT (BEAKER) (test sbwi=440) 199 K/CU MM 150-450 Patient trasfused MEAN PLATELET VOLUME (BEAKER) (test kgll=377) 11.0 fL 9.4-12.3 NUCLEATED RED BLOOD CELLS (BEAKER) (test dpli=756) 0 /100 WBC 0-0 (CELLAVISION MANUAL DIFF)2019-01-31 13:30:00* Test Item Value Reference Range Comments NEUTROPHILS - REL (CELLAVISION)(BEAKER) (test csjk=1101) 20 % LYMPHOCYTES - REL (CELLAVISION)(BEAKER) (test ncef=5506) 50 % MONOCYTES - REL (CELLAVISION)(BEAKER) (test couq=0413) 8 % EOSINOPHILS - REL (CELLAVISION)(BEAKER) (test bcyy=2804) 23 % NEUTROPHILS - ABS (CELLAVISION)(BEAKER) (test srun=6896) 0.28 K/ul 1.56-6.13 LYMPHOCYTES - ABS (CELLAVISION)(BEAKER) (test ktcm=0519) 0.70 K/ul 1.18-3.74 MONOCYTES - ABS (CELLAVISION)(BEAKER) (test wyzn=3000) 0.11 K/uL 0.24-0.36 EOSINOPHILS - ABS (CELLAVISION)(BEAKER) (test cuum=5119) 0.32 K/uL 0.04-0.36 TOTAL COUNTED (BEAKER) (test odrc=0964) 100 MANUAL NRBC PER 100 CELLS (BEAKER) (test izzv=5977) 1 /100 WBC 0-0 WBC MORPHOLOGY (BEAKER) (test adsx=123) Normal GIANT PLATELETS (BEAKER) (test crwi=062) Present POLYCHROMATOPHILLIC RBCS(BEAKER) (test mkhb=781) 1+ few ANISOCYTOSIS (BEAKER) (test hcut=959) 1+ few SCHISTOCYTES (BEAKER) (test vofh=431) 1+ few TEAR DROP CELLS (BEAKER) (test lulo=559) 1+ few ARTIFACT (CELLAVISION)(BEAKER) (test vquz=2593) Present Received comment: User comments: Slide comments: POCT-GLUCOSE [id number] 13:01:00* Test Item Value Reference Range Comments POC-GLUCOSE METER (BEAKER) (test fjvd=3045) 115 mg/dL 70-110 TESTED AT [place] [id number] [facility] [address] POCT-GLUCOSE [id number] 08:22:00* Test Item Value Reference Range Comments POC-GLUCOSE METER (BEAKER) (test tkcl=6719) 79 mg/dL 70-110 TESTED AT [address] [address] BASIC METABOLIC [id number] 07:22:00* Test Item Value Reference Range Comments SODIUM (BEAKER) (test yzbb=534) 140 meq/L 136-145 POTASSIUM (BEAKER) (test waab=487) 4.2 meq/L 3.5-5.1 CHLORIDE (BEAKER) (test wslk=669) 111 meq/L 98-107 CO2 (BEAKER) (test zqpx=418) 22 meq/L 22-29 BLOOD UREA NITROGEN (BEAKER) (test ejjp=512) 24 mg/dL 7-21 CREATININE (BEAKER) (test giic=079) 1.56 mg/dL 0.57-1.25 GLUCOSE RANDOM (BEAKER) (test rgfd=780) 71 mg/dL 70-105 CALCIUM (BEAKER) (test tmoh=670) 9.0 mg/dL 8.4-10.2 EGFR (BEAKER) (test yczy=6918) 40 mL/min/1.73 sq m ESTIMATED GFR IS NOT ACCURATE CREATININE CLEARANCE IN PREDICTING GLOMERULAR FILTRATION RATE. ESTIMATED GFR IS NOT APPLICABLE FOR DIALYSIS PATIENTS. POCT-GLUCOSE [id number] 21:59:00* Test Item Value Reference Range Comments POC-GLUCOSE METER (BEAKER) (test illd=4458) 92 mg/dL 70-110 TESTED AT [address] [address] FLOW CYTOMETRY [id number] 19:10:00* Test Item Value Reference Range Comments FLOW CYTOMETRY RESULT POINTER (BEAKER) (test pijp=7707) See Separate Report FLOW CYTOMETRY AP CASE # (BEAKER) (test epzn=6917) [id number] POCT-GLUCOSE [id number] 18:56:00* Test Item Value Reference Range Comments POC-GLUCOSE METER (LZIA) (test hoan=8844) 128 mg/dL 70-110 TESTED AT [facility] [address] [facility] [address] FLOW [id number] 16:58:00Flow Cytometry Report Case: [id number] Authorizing Provider: Mckenzie Rojas Collected: 01/30/2019 1136 Ordering Location: [address] Received: 01/30/2019 1254 Service Pathologist: Yordy Painter MD Specimen: Other BONE MARROW, FLOW CYTOMETRY:BLASTS ACCOUNT FOR 6.55% OF ANALYZED EVENTS.NO MONOCLONAL B CELL POPULATION.NO ABNORMAL T CELL POPULATION.CORRELATION WITH MORPHOLOGIC FINDINGS REQUIRED. [id number] marrowCD8, surface-Blauvelt, CD56, surface-Lambda, CD5, CD19, CD10, CD3, CD20, CD4, CD45, CD14, CD13, CD33, CD117, CD34, cKappa, cLambda, CD38, [id number] Viability: 93.1% Blasts: The dim CD45+ CD34+ blasts comprise 6.55% of total cells. The majority of these cells express CD13 and CD33 (myeloblasts). Minimal hematogones are present.Lymphocytes: Bright CD45+ lymphocytes comprise 13.8% of total [...] are noted with polytypic cytoplasmic light chain expression.The remaining events analyzed represent nonviable cells, non- hematolymphoid cells, and/or debris. These tests were developed and their performance characteristics determined by [facility] They have not been anum ared or approved by the U.S. Food and Drug Administration. The FDA has determine d that such clearance or approval is not necessary. It should not be regarded as investigational or for research. This laboratory is certified under the Clinica l Laboratory Improvement Amendments of 1988 ("CLIA") as qualified to perform hig h-complexity clinical testing.POCT-GLUCOSE [id number] 12:55:00* Test Item Value Reference Range Comments POC-GLUCOSE METER (BEAKER) (test izod=8564) 97 mg/dL 70-110 TESTED AT [facility] [address] [facility] [address] BONE MARROW PROCESS.2019-01-30 11:56:00* Test Item Value Reference Range Comments ANATOMIC CASE# (BEAKER) (test znws=3166) [id number] ORDERED BY DOCTOR# (BEAKER) (test cnog=0385) LAURA PERFORMED BY DOCTOR# (BEAKER) (test bjyv=9100) Mono CLOT RECEIVED? (BEAKER) (test rcvj=0874) Yes BIOPSY RECEIVED? (BEAKER) (test fhlq=1410) Yes CULTURE RECEIVED? (BEAKER) (test vezb=9972) No FLOW RECEIVED? (BEAKER) (test lanh=1459) Yes CYTOGENICS? (BEAKER) (test hwkb=5958) Yes MOLECULAR GENETICS? (BEAKER) (test xuzi=8637) Yes Good collection by Dr Villareal. Slides are good(Dhara)CBC W/PLT COUNT & AUTO [id number] 09:25:00* Test Item Value Reference Range Comments WHITE BLOOD CELL COUNT (BEAKER) (test dvlc=759) 1.4 K/ L 3.5-10.5 RED BLOOD CELL COUNT (BEAKER) (test utux=603) 2.60 M/ L 3.93-5.22 HEMOGLOBIN (BEAKER) (test auhk=352) 8.5 GM/DL 11.2-15.7 HEMATOCRIT (BEAKER) (test ueyv=809) 25.4 % 34.1-44.9 MEAN CORPUSCULAR VOLUME (BEAKER) (test cvke=868) 97.7 fL 79.4-94.8 MEAN CORPUSCULAR HEMOGLOBIN (BEAKER) (test xdnl=356) 32.7 pg 25.6-32.2 MEAN CORPUSCULAR HEMOGLOBIN CONC (BEAKER) (test thuq=184) 33.5 GM/DL 32.2-35.5 RED CELL DISTRIBUTION WIDTH (BEAKER) (test tdko=601) 14.7 % 11.7-14.4 PLATELET COUNT (BEAKER) (test mxbn=865) 95 K/CU MM 150-450 MEAN PLATELET VOLUME (BEAKER) (test idcb=231) 11.6 fL 9.4-12.3 NUCLEATED RED BLOOD CELLS (BEAKER) (test zplw=002) 0 /100 WBC 0-0 POCT-GLUCOSE [id number] 09:13:00* Test Item Value Reference Range Comments POC-GLUCOSE METER (BEAKER) (test ulax=6794) 85 mg/dL 70-110 TESTED AT [facility] [address] [facility] [address] (CELLAVISION MANUAL DIFF)2019-01-30 06:51:00* Test Item Value Reference Range Comments NEUTROPHILS - REL (CELLAVISION)(BEAKER) (test lpps=6343) 17 % LYMPHOCYTES - REL (CELLAVISION)(BEAKER) (test vsij=2741) 61 % MONOCYTES - REL (CELLAVISION)(BEAKER) (test rihs=8188) 2 % EOSINOPHILS - REL (CELLAVISION)(BEAKER) (test rvnp=7409) 20 % NEUTROPHILS - ABS (CELLAVISION)(BEAKER) (test tulo=0368) 0.24 K/ul 1.56-6.13 LYMPHOCYTES - ABS (CELLAVISION)(BEAKER) (test dcfx=5983) 0.85 K/ul 1.18-3.74 MONOCYTES - ABS (CELLAVISION)(BEAKER) (test qghs=0136) 0.03 K/uL 0.24-0.36 EOSINOPHILS - ABS (CELLAVISION)(BEAKER) (test ardd=3870) 0.28 K/uL 0.04-0.36 TOTAL COUNTED (BEAKER) (test vnqt=2947) 100 SMUDGE CELLS (BEAKER) (test wxvc=9463) Present GIANT PLATELETS (BEAKER) (test jjkw=074) Present ANISOCYTOSIS (BEAKER) (test fewd=656) 1+ few MACROCYTES (BEAKER) (test wfzi=890) 1+ few PLATELET CONCENTRATION (CELLAVISION)(BEAKER) (test vila=6622) Decreased Received comment: User comments: Slide comments: TROPONIN [id number] 03:18:00* Test Item Value Reference Range Comments TROPONIN I (BEAKER) (test jrcn=130) < ng/mL 0.00-0.03 Troponin I (TnI) levels must be interpreted in the context of the presenting sym ptoms and the clinical findings. Elevated TnI levels indicate myocardial damage, but are not specific for ischemic heart disease. Elevated TnI levels are seen i n patients with other cardiac conditions (including myocarditis and congestive h eart failure), and slight TnI elevations occur in patients with other conditions , including sepsis, renal failure, acidosis, acute neurological disease, and per sistent tachyarrhythmia.RAD, CHEST, 1 VIEW, NON [id number] 03:09:00Reason for exam:->chest pain, r/o effusionShould this be performed at the bedside?->Yes FINAL REPORT Chest one view. Clinical history: chest kavya n, r/o effusion Comparison: Chest radiograph 01/24/19 Technique: A single frontal view of the chest was obtained. Findings: The cardiac silhouette is mildly enl arged. The aorta is tortuous and atherosclerotic. There is pulmonary interstitia l edema. There is no focal pulmonary consolidation, pleural effusion or pneumoth orax. The bony thorax is demineralized but otherwise unremarkable. Impression: Pulmonary interstitial edema. No pleural effusion. Mild cardiomegaly. Signed: Kayla Christina Verified Date/Time: 01/30/2019 03:09:04 Reading Location: [address] Body Reading Room C METABOLIC [id number] 02:51:00* Test Item Value Reference Range Comments SODIUM (BEAKER) (test bcdu=594) 139 meq/L 136-145 POTASSIUM (BEAKER) (test dqdb=650) 4.5 meq/L 3.5-5.1 Specimen slightly hemolyzed CHLORIDE (BEAKER) (test vfro=741) 113 meq/L 98-107 CO2 (BEAKER) (test whwl=374) 19 meq/L 22-29 BLOOD UREA NITROGEN (BEAKER) (test vrjk=177) 21 mg/dL 7-21 CREATININE (BEAKER) (test pwbu=332) 1.54 mg/dL 0.57-1.25 Specimen slightly hemolyzed GLUCOSE RANDOM (BEAKER) (test hqej=577) 74 mg/dL 70-105 CALCIUM (BEAKER) (test dlnz=331) 8.7 mg/dL 8.4-10.2 EGFR (BEAKER) (test ymqk=1662) 41 mL/min/1.73 sq m ESTIMATED GFR IS NOT ACCURATE CREATININE CLEARANCE IN PREDICTING GLOMERULAR FILTRATION RATE. ESTIMATED GFR IS NOT APPLICABLE FOR DIALYSIS PATIENTS. POCT-GLUCOSE [id number] 20:48:00* Test Item Value Reference Range Comments POC-GLUCOSE METER (BEAKER) (test vuir=8358) 99 mg/dL 70-110 TESTED AT [facility] [address] [facility] [address] BLOOD [id number] 20:01:00* Test Item Value Reference Range Comments CULTURE (BEAKER) (test pjdl=2750) No growth in 5 days BLOOD [id number] 20:01:00* Test Item Value Reference Range Comments CULTURE (BEAKER) (test lufl=7521) No growth in 5 days POCT-GLUCOSE [id number] 16:46:00* Test Item Value Reference Range Comments POC-GLUCOSE METER (BEAKER) (test fidi=1796) 97 mg/dL 70-110 TESTED AT [place] [id number] [facility] [address] CBC W/PLT COUNT & AUTO [id number] 13:36:00* Test Item Value Reference Range Comments WHITE BLOOD CELL COUNT (BEAKER) (test ixgh=463) 1.3 K/ L 3.5-10.5 RED BLOOD CELL COUNT (BEAKER) (test nnfc=462) 1.94 M/ L 3.93-5.22 HEMOGLOBIN (BEAKER) (test vpti=727) 6.4 GM/DL 11.2-15.7 HEMATOCRIT (BEAKER) (test idta=405) 19.6 % 34.1-44.9 MEAN CORPUSCULAR VOLUME (BEAKER) (test dkff=124) 101.0 fL 79.4-94.8 MEAN CORPUSCULAR HEMOGLOBIN (BEAKER) (test vihn=850) 33.0 pg 25.6-32.2 MEAN CORPUSCULAR HEMOGLOBIN CONC (BEAKER) (test botg=843) 32.7 GM/DL 32.2-35.5 RED CELL DISTRIBUTION WIDTH (BEAKER) (test owwq=077) 13.5 % 11.7-14.4 PLATELET COUNT (BEAKER) (test vcdg=179) 17 K/CU MM 150-450 MEAN PLATELET VOLUME (BEAKER) (test efex=739) 12.0 fL 9.4-12.3 NUCLEATED RED BLOOD CELLS (BEAKER) (test drhg=007) 0 /100 WBC 0-0 (CELLAVISION MANUAL DIFF)2019-01-29 13:36:00* Test Item Value Reference Range Comments NEUTROPHILS - REL (CELLAVISION)(BEAKER) (test eqee=1177) 15 % LYMPHOCYTES - REL (CELLAVISION)(BEAKER) (test wrok=6949) 58 % MONOCYTES - REL (CELLAVISION)(BEAKER) (test ubyh=0878) 4 % EOSINOPHILS - REL (CELLAVISION)(BEAKER) (test zswk=1097) 23 % NEUTROPHILS - ABS (CELLAVISION)(BEAKER) (test wvfz=7706) 0.20 K/ul 1.56-6.13 LYMPHOCYTES - ABS (CELLAVISION)(BEAKER) (test hrey=5283) 0.75 K/ul 1.18-3.74 MONOCYTES - ABS (CELLAVISION)(BEAKER) (test kezk=9640) 0.05 K/uL 0.24-0.36 EOSINOPHILS - ABS (CELLAVISION)(BEAKER) (test vqmw=9834) 0.30 K/uL 0.04-0.36 TOTAL COUNTED (BEAKER) (test diub=3752) 100 RBC MORPHOLOGY (BEAKER) (test vtzx=943) Normal WBC MORPHOLOGY (BEAKER) (test itww=909) Normal GIANT PLATELETS (BEAKER) (test lkyh=246) Present ARTIFACT (CELLAVISION)(BEAKER) (test spfp=8372) Present PLATELET CONCENTRATION (CELLAVISION)(BEAKER) (test ozuq=6857) Decreased Received comment: User comments: Slide comments: POCT-GLUCOSE [id number] 11:46:00* Test Item Value Reference Range Comments POC-GLUCOSE METER (BEAKER) (test qmpr=3661) 105 mg/dL 70-110 TESTED AT [facility] [address] [facility] [address] POCT-GLUCOSE [id number] 08:05:00* Test Item Value Reference Range Comments POC-GLUCOSE METER (BEAKER) (test bwds=4488) 85 mg/dL 70-110 TESTED AT [place] [id number] BASIC METABOLIC [id number] 07:14:00* Test Item Value Reference Range Comments SODIUM (BEAKER) (test hsju=005) 140 meq/L 136-145 POTASSIUM (BEAKER) (test pvjt=493) 4.0 meq/L 3.5-5.1 CHLORIDE (BEAKER) (test koqp=167) 115 meq/L 98-107 CO2 (BEAKER) (test lpao=941) 21 meq/L 22-29 BLOOD UREA NITROGEN (BEAKER) (test fitq=994) 21 mg/dL 7-21 CREATININE (BEAKER) (test pldp=468) 1.46 mg/dL 0.57-1.25 GLUCOSE RANDOM (BEAKER) (test hlqd=723) 77 mg/dL 70-105 CALCIUM (BEAKER) (test vcgx=350) 8.2 mg/dL 8.4-10.2 EGFR (BEAKER) (test nxtz=2299) 43 mL/min/1.73 sq m ESTIMATED GFR IS NOT ACCURATE CREATININE CLEARANCE IN PREDICTING GLOMERULAR FILTRATION RATE. ESTIMATED GFR IS NOT APPLICABLE FOR DIALYSIS PATIENTS. POCT-GLUCOSE [id number] 21:10:00* Test Item Value Reference Range Comments POC-GLUCOSE METER (BEAKER) (test lwxn=1565) 100 mg/dL 70-110 TESTED AT [place] [id number] POCT-GLUCOSE [id number] 16:42:00* Test Item Value Reference Range Comments POC-GLUCOSE METER (BEAKER) (test twrx=7655) 99 mg/dL 70-110 TESTED AT [address] [address] CBC W/PLT COUNT & AUTO [id number] 15:11:00* Test Item Value Reference Range Comments WHITE BLOOD CELL COUNT (BEAKER) (test xsph=188) 1.3 K/ L 3.5-10.5 RED BLOOD CELL COUNT (BEAKER) (test pqvq=138) 2.40 M/ L 3.93-5.22 HEMOGLOBIN (BEAKER) (test mjnu=435) 7.8 GM/DL 11.2-15.7 HEMATOCRIT (BEAKER) (test ofko=257) 24.3 % 34.1-44.9 MEAN CORPUSCULAR VOLUME (BEAKER) (test xgks=533) 101.3 fL 79.4-94.8 MEAN CORPUSCULAR HEMOGLOBIN (BEAKER) (test wbwf=883) 32.5 pg 25.6-32.2 MEAN CORPUSCULAR HEMOGLOBIN CONC (BEAKER) (test duqh=006) 32.1 GM/DL 32.2-35.5 RED CELL DISTRIBUTION WIDTH (BEAKER) (test mgsx=502) 13.3 % 11.7-14.4 PLATELET COUNT (BEAKER) (test kvpu=685) 20 K/CU MM 150-450 MEAN PLATELET VOLUME (BEAKER) (test jgfr=555) 12.2 fL 9.4-12.3 NUCLEATED RED BLOOD CELLS (BEAKER) (test drtc=350) 0 /100 WBC 0-0 (CELLAVISION MANUAL DIFF)2019-01-28 15:11:00* Test Item Value Reference Range Comments NEUTROPHILS - REL (CELLAVISION)(BEAKER) (test bxzt=1009) 19 % LYMPHOCYTES - REL (CELLAVISION)(BEAKER) (test goga=6579) 64 % MONOCYTES - REL (CELLAVISION)(BEAKER) (test psup=3111) 2 % EOSINOPHILS - REL (CELLAVISION)(BEAKER) (test qsfr=4950) 15 % NEUTROPHILS - ABS (CELLAVISION)(BEAKER) (test oyrd=3249) 0.25 K/ul 1.56-6.13 LYMPHOCYTES - ABS (CELLAVISION)(BEAKER) (test semu=3367) 0.83 K/ul 1.18-3.74 MONOCYTES - ABS (CELLAVISION)(BEAKER) (test vwgz=4748) 0.03 K/uL 0.24-0.36 EOSINOPHILS - ABS (CELLAVISION)(BEAKER) (test bady=6043) 0.20 K/uL 0.04-0.36 TOTAL COUNTED (BEAKER) (test pozq=9248) 100 WBC MORPHOLOGY (BEAKER) (test audl=950) Normal PLT MORPHOLOGY (BEAKER) (test cnxa=098) Normal ANISOCYTOSIS (BEAKER) (test heml=931) 1+ few MACROCYTES (BEAKER) (test rlza=335) 1+ few POIKILOCYTES (BEAKER) (test eazx=731) 1+ few ARTIFACT (CELLAVISION)(BEAKER) (test yelx=2238) Present PLATELET CONCENTRATION (CELLAVISION)(BEAKER) (test mtxi=7599) Decreased Received comment: User comments: Slide comments: EBV VIRAL [id number] 13:59:00* Test Item Value Reference Range Comments EBV VIRAL LOAD - NEGATIVE (BEAKER) (test tjsx=0819) Negative or below the linear range of the assay (<500 copies/mL) This assay was performed by real-time PCR for the detection of the Wilfrido-Bautista virus (EBV) gene EBNA-1. The test is composed of (1) DNA extraction from patien t specimen, and (2) real-time PCR amplification and detection with ROLX-8-tnyfrc ic primers and probes. A well-conserved region of the EBNA-1 gene is targeted, a long with an internal control sequence used to confirm PCR amplification. Asympt omatic carriers and viral genetic variation, among other factors, can affect the accuracy of nucleic acid testing; therefore, results should be interpreted in l ight of clinical data.This test was developed and its performance characteristic s determined by the [facility] Pathology Department, Section of M olecula Pathology. It has not been cleared or approved by the U.S. Food and Delmer g Administration (FDA), since FDA approval is not required for clinical use of t he test. Validation was done as required by The Clinical Laboratory Improvement Amendments of 1988.PERIPHERAL BLOOD SMEAR - HOLD [id number] 13:45:00* Test Item Value Reference Range Comments PERIPHERAL SMEAR SAVE (BEAKER) (test bdgd=8055) saved POCT-GLUCOSE [id number] 11:57:00* Test Item Value Reference Range Comments POC-GLUCOSE METER (BEAKER) (test qfgk=3685) 122 mg/dL 70-110 TESTED AT [facility] [address] [facility] [address] POCT-GLUCOSE [id number] 07:51:00* Test Item Value Reference Range Comments POC-GLUCOSE METER (BEAKER) (test wgre=1401) 93 mg/dL 70-110 TESTED AT [address] [address] BASIC METABOLIC [id number] 06:09:00* Test Item Value Reference Range Comments SODIUM (BEAKER) (test ezzi=212) 140 meq/L 136-145 POTASSIUM (BEAKER) (test agje=321) 4.4 meq/L 3.5-5.1 CHLORIDE (BEAKER) (test llvs=778) 115 meq/L 98-107 CO2 (BEAKER) (test jlbq=792) 22 meq/L 22-29 BLOOD UREA NITROGEN (BEAKER) (test tcnw=065) 28 mg/dL 7-21 CREATININE (BEAKER) (test bstk=861) 1.67 mg/dL 0.57-1.25 GLUCOSE RANDOM (BEAKER) (test qpoe=172) 79 mg/dL 70-105 CALCIUM (BEAKER) (test kuex=394) 8.2 mg/dL 8.4-10.2 EGFR (BEAKER) (test fkxp=4935) 37 mL/min/1.73 sq m ESTIMATED GFR IS NOT ACCURATE CREATININE CLEARANCE IN PREDICTING GLOMERULAR FILTRATION RATE. ESTIMATED GFR IS NOT APPLICABLE FOR DIALYSIS PATIENTS. POCT-GLUCOSE [id number] 21:56:00* Test Item Value Reference Range Comments POC-GLUCOSE METER (BEAKER) (test bqay=6521) 117 mg/dL 70-110 TESTED AT [place] [id number] POCT-GLUCOSE [id number] 19:20:00* Test Item Value Reference Range Comments POC-GLUCOSE METER (BEAKER) (test fszz=1394) 129 mg/dL 70-110 TESTED AT [address] [address] CBC W/PLT COUNT & AUTO [id number] 18:22:00* Test Item Value Reference Range Comments WHITE BLOOD CELL COUNT (BEAKER) (test jqqg=834) 1.4 K/ L 3.5-10.5 RED BLOOD CELL COUNT (BEAKER) (test lkte=030) 2.22 M/ L 3.93-5.22 HEMOGLOBIN (BEAKER) (test mnos=771) 7.3 GM/DL 11.2-15.7 HEMATOCRIT (BEAKER) (test takb=691) 22.7 % 34.1-44.9 MEAN CORPUSCULAR VOLUME (BEAKER) (test emwv=510) 102.3 fL 79.4-94.8 MEAN CORPUSCULAR HEMOGLOBIN (BEAKER) (test espb=714) 32.9 pg 25.6-32.2 MEAN CORPUSCULAR HEMOGLOBIN CONC (BEAKER) (test udzs=822) 32.2 GM/DL 32.2-35.5 RED CELL DISTRIBUTION WIDTH (BEAKER) (test vnfj=905) 13.8 % 11.7-14.4 PLATELET COUNT (BEAKER) (test zwdq=361) 24 K/CU MM 150-450 MEAN PLATELET VOLUME (BEAKER) (test hevg=988) 10.9 fL 9.4-12.3 NUCLEATED RED BLOOD CELLS (BEAKER) (test ovtu=712) 0 /100 WBC 0-0 (CELLAVISION MANUAL DIFF)2019-01-27 18:22:00* Test Item Value Reference Range Comments NEUTROPHILS - REL (CELLAVISION)(BEAKER) (test ktjx=5086) 26 % LYMPHOCYTES - REL (CELLAVISION)(BEAKER) (test xdmy=6016) 54 % MONOCYTES - REL (CELLAVISION)(BEAKER) (test lijt=9454) 1 % EOSINOPHILS - REL (CELLAVISION)(BEAKER) (test ypov=2138) 18 % BASOPHILS - REL (CELLAVISION)(BEAKER) (test zsln=2354) 1 % NEUTROPHILS - ABS (CELLAVISION)(BEAKER) (test pccq=7087) 0.36 K/ul 1.56-6.13 LYMPHOCYTES - ABS (CELLAVISION)(BEAKER) (test lxjr=2171) 0.76 K/ul 1.18-3.74 MONOCYTES - ABS (CELLAVISION)(BEAKER) (test cqda=6813) 0.01 K/uL 0.24-0.36 EOSINOPHILS - ABS (CELLAVISION)(BEAKER) (test ezoe=4891) 0.25 K/uL 0.04-0.36 BASOPHILS - ABS (CELLAVISION)(BEAKER) (test iohq=7166) 0.01 K/uL 0.01-0.08 TOTAL COUNTED (BEAKER) (test gkbc=2612) 100 RBC MORPHOLOGY (BEAKER) (test xgsc=693) Normal WBC MORPHOLOGY (BEAKER) (test otrh=567) Normal PLT MORPHOLOGY (BEAKER) (test bnlu=227) Normal ARTIFACT (CELLAVISION)(BEAKER) (test wjog=4827) Present PLATELET CONCENTRATION (CELLAVISION)(BEAKER) (test nmmk=3835) Decreased Received comment: User comments: Slide comments: C. DIFFICILE GDH TOXIN 2019-01-27 18:16:00* Test Item Value Reference Range Comments CDT TOXIN (test xvsz=[id number]) Negative Negative CDT GDH ANTIGEN (test pabc=[id number]) Negative Negative No indication of Clostridium difficile infection and no colonization. Discontinue enteric isolation and therapy. Testing performed by [place] Rapid Cassette Assay. For GDH, published sensitivity of the assay is 98.7% compared to cytotoxicity testing. For Toxin AB, publishe d sensitivity is 87.8% and specificity 99.4% compared to cytotoxicity testing.Ve rification of kit performance was done by the [facility] Microbiology Lab prior to cl inical use.POCT-GLUCOSE [id number] 12:55:00* Test Item Value Reference Range Comments POC-GLUCOSE METER (BEAKER) (test rgtu=1181) 98 mg/dL 70-110 TESTED AT [facility] [address] [facility] [address] POCT-GLUCOSE [id number] 08:44:00* Test Item Value Reference Range Comments POC-GLUCOSE METER (BEAKER) (test sahg=2416) 88 mg/dL 70-110 TESTED AT [facility] [address] [facility] [address] BASIC METABOLIC [id number] 05:50:00* Test Item Value Reference Range Comments SODIUM (BEAKER) (test subj=706) 140 meq/L 136-145 POTASSIUM (BEAKER) (test tvnw=604) 4.3 meq/L 3.5-5.1 CHLORIDE (BEAKER) (test nhnb=835) 113 meq/L 98-107 CO2 (BEAKER) (test qhon=568) 22 meq/L 22-29 BLOOD UREA NITROGEN (BEAKER) (test muwn=737) 36 mg/dL 7-21 CREATININE (BEAKER) (test bzsh=958) 1.79 mg/dL 0.57-1.25 GLUCOSE RANDOM (BEAKER) (test raec=951) 78 mg/dL 70-105 CALCIUM (BEAKER) (test gbgt=075) 7.8 mg/dL 8.4-10.2 EGFR (BEAKER) (test xyjb=1258) 34 mL/min/1.73 sq m ESTIMATED GFR IS NOT ACCURATE CREATININE CLEARANCE IN PREDICTING GLOMERULAR FILTRATION RATE. ESTIMATED GFR IS NOT APPLICABLE FOR DIALYSIS PATIENTS. POCT-GLUCOSE [id number] 21:30:00* Test Item Value Reference Range Comments POC-GLUCOSE METER (BEAKER) (test mdey=4184) 83 mg/dL 70-110 TESTED AT [facility] [address] [facility] [address] POCT-GLUCOSE [id number] 19:43:00* Test Item Value Reference Range Comments POC-GLUCOSE METER (BEAKER) (test qdij=0474) 173 mg/dL 70-110 TESTED AT [place] [id number] [facility] [address] PERIPHERAL BLOOD SMEAR - PATHOLOGIST [id number] 16:10:00* Test Item Value Reference Range Comments RBC MORPHOLOGY (BEAKER) (test pkzg=2002) Hypochromic, macrocytic anemia with moderate anisocytosis and mild poikilocytosis, including occasional elliptocytes and spherocytes. Rare microcytes, dacrocytes and schistocytes also present. Mild rouleaux present. Minimal polychromasia. WBC MORPHOLOGY (BEAKER) (test oldg=6539) Decreased with absolute neutropenia and lymphopenia. PLT MORPHOLOGY (BEAKER) (test jtkm=6092) Markedly decreased. Normal granular morphology. Occasional large forms. No platelet clumping identified. [id number] (BEAKER) (test iqqt=6950) Trent Byers MD (electronic signature) RESPIRATORY PANEL [id number] 15:58:00* Test Item Value Reference Range Comments HUMAN METAPNEUMOVIRUS (BEAKER) (test zvof=8082) Not detected Not detected, Equivocal RHINOVIRUS (BEAKER) (test tvlu=8167) Not detected Not detected, Equivocal INFLUENZA A (BEAKER) (test qmlv=4482) Not detected Not detected, Equivocal INFLUENZA A (NO SUBTYPE) (test dfby=0155) Not detected, Equivocal INFLUENZA A SUBTYPE H1 (BEAKER) (test qzgw=8742) Not detected, Equivocal INFLUENZA A SUBTYPE H3 (BEAKER) (test wszf=7060) Not detected, Equivocal INFLUENZA A SUBTYPE H1-2009 (BEAKER) (test xamx=6165) Not detected, Equivocal INFLUENZA B (BEAKER) (test sfvl=3364) Not detected Not detected, Equivocal RESPIRATORY SYNCYTIAL VIRUS (BEAKER) (test dxhx=4477) Not detected Not detected, Equivocal PARAINFLUENZA VIRUS 1 (BEAKER) (test ourt=5539) Not detected Not detected, Equivocal PARAINFLUENZA VIRUS 2 (BEAKER) (test tzki=8604) Not detected Not detected, Equivocal PARAINFLUENZA VIRUS 3 (BEAKER) (test hqyx=3919) Not detected Not detected, Equivocal PARAINFLUENZA VIRUS 4 (BEAKER) (test pqyv=4461) Not detected Not detected, Equivocal ADENOVIRUS (BEAKER) (test ujtb=2759) Not detected Not detected, Equivocal CORONAVIRUS 229E (BEAKER) (test cjxm=4312) Not detected Not detected, Equivocal CORONAVIRUS HKU1 (BEAKER) (test rlhn=7023) Not detected Not detected, Equivocal CORONAVIRUS NL63 (BEAKER) (test mdms=9966) Not detected Not detected, Equivocal CORONAVIRUS OC43 (BEAKER) (test mzmt=0566) Not detected Not detected, Equivocal BORDETELLA PERTUSSIS (BEAKER) (test ebsg=7050) Not detected Not detected, Equivocal CHLAMYDOPHILA PNEUMONIAE (BEAKER) (test vnor=9030) Not detected Not detected, Equivocal MYCOPLASMA PNEUMONIAE (BEAKER) (test ivzr=4414) Not detected Not detected, Equivocal Other viruses and bacteria not targeted by this PCR panel cannot be excluded; th erefore clinical correlation and follow up of serology, culture results, and oth er molecular studies is required. The results are not intended to be used as the sole means for clinical diagnosis or patient management decisions. This sample was tested at the [facility] using the [employer] Film[employer] rray Respiratory Panel. It is FDA cleared and has been verified and approved by the [facility] for clinical use on nasal swab specim ens. It is not FDA-cleared for use on bronchial wash/lavage samples. However, fo r this sample type, validation was performed and test characteristics were deter mined and approved, by [facility] for clinical use u nder the Clinical Laboratory Improvement Amendments (CLIA) of 1988 requirements. Therefore, FDA clearance is not required. This laboratory is CLIA-certified an d [employer] ([employer])-accredited to perform high complexity t esting.CMV PCR, [id number] 14:11:00* Test Item Value Reference Range Comments CMV VIRAL LOAD - NEGATIVE (BEAKER) (test zdyj=7530) Negative or below the linear range of the assay (<375 copies/mL) Cytomegalovirus (CMV) infection can cause significant disease in immunosuppresse d patients. However, it is common for CMV to manifest as a limited infection whi ch is of no clinical significance in immunosuppressed patients or in healthy ind ividuals.Viral load measurements are helpful to identify clinical CMV infection and to guide the pre-emptive management of antiviral therapy. For treatment of CMV infection due to reactivation in transplant recipients, a threshold between 4,000 and 5,000 copies/mL is suggested. For treatment of primary CMV infection, a lower threshold can be used.CMV infection may also be monitored using weekly serial measurements. Serial measurements of CMV DNA viral load can be evaluated by identifying a 10-fold change, as well as assessing the CMV DNA viral load and the clinical context for each patient.The plasma CMV DNA viral load was detecte d using quantitative polymerase chain reaction and fluorescent monitoring of a s pecific hybridized probe. Genetic variation and other factors can affect the acc uracy of nucleic acid testing. Therefore, the results should be interpreted in l ight of clinical data. A negative result may not exclude the presence of CMV dis ease.This test was developed and its performance characteristics determined by aditya giraldo [facility] Pathology Department, Section of Molecular Patholog y. It has not been cleared or approved by the U.S. Food and Drug Administration (FDA), since FDA approval is not required for clinical use of the test. Validati on was done as required by The Clinical Laboratory Improvement Amendments of 198 8.POCT-GLUCOSE [id number] 13:12:00* Test Item Value Reference Range Comments POC-GLUCOSE METER (BEAKER) (test lzpq=4723) 104 mg/dL 70-110 TESTED AT [facility] [address] [place] [address] POCT-GLUCOSE [id number] 09:34:00* Test Item Value Reference Range Comments POC-GLUCOSE METER (BEAKER) (test djpy=6044) 97 mg/dL 70-110 TESTED AT [address] [address] HEPATIC FUNCTION [id number] 08:29:00* Test Item Value Reference Range Comments TOTAL PROTEIN (BEAKER) (test sjaf=761) 7.2 gm/dL 6.0-8.3 ALBUMIN (BEAKER) (test mnis=9470) 3.5 g/dL 3.5-5.0 BILIRUBIN TOTAL (BEAKER) (test wthl=978) 0.7 mg/dL 0.2-1.2 BILIRUBIN DIRECT (BEAKER) (test gpem=433) 0.3 mg/dL 0.1-0.5 ALKALINE PHOSPHATASE (BEAKER) (test itvp=321) 42 U/L 40-150 AST (SGOT) (BEAKER) (test gxxh=517) 24 U/L 5-34 ALT (SGPT) (BEAKER) (test bgez=618) 18 U/L 6-55 BASIC METABOLIC [id number] 01:23:00* Test Item Value Reference Range Comments SODIUM (BEAKER) (test yvrd=937) 139 meq/L 136-145 POTASSIUM (BEAKER) (test rjqb=138) 4.3 meq/L 3.5-5.1 CHLORIDE (BEAKER) (test yqxk=514) 112 meq/L 98-107 CO2 (BEAKER) (test pnez=269) 20 meq/L 22-29 BLOOD UREA NITROGEN (BEAKER) (test nljo=483) 48 mg/dL 7-21 CREATININE (BEAKER) (test lffs=201) 1.92 mg/dL 0.57-1.25 GLUCOSE RANDOM (BEAKER) (test cubg=861) 86 mg/dL 70-105 CALCIUM (BEAKER) (test ydnm=194) 7.8 mg/dL 8.4-10.2 EGFR (BEAKER) (test clqz=6039) 32 mL/min/1.73 sq m ESTIMATED GFR IS NOT ACCURATE CREATININE CLEARANCE IN PREDICTING GLOMERULAR FILTRATION RATE. ESTIMATED GFR IS NOT APPLICABLE FOR DIALYSIS PATIENTS. CBC W/PLT COUNT & AUTO [id number] 01:09:00* Test Item Value Reference Range Comments WHITE BLOOD CELL COUNT (BEAKER) (test evxa=367) 1.3 K/ L 3.5-10.5 RED BLOOD CELL COUNT (BEAKER) (test tubm=863) 2.30 M/ L 3.93-5.22 HEMOGLOBIN (BEAKER) (test cxgg=897) 7.6 GM/DL 11.2-15.7 HEMATOCRIT (BEAKER) (test yjdp=395) 23.3 % 34.1-44.9 MEAN CORPUSCULAR VOLUME (BEAKER) (test maga=445) 101.3 fL 79.4-94.8 MEAN CORPUSCULAR HEMOGLOBIN (BEAKER) (test iayz=832) 33.0 pg 25.6-32.2 MEAN CORPUSCULAR HEMOGLOBIN CONC (BEAKER) (test noqj=397) 32.6 GM/DL 32.2-35.5 RED CELL DISTRIBUTION WIDTH (BEAKER) (test viqi=203) 14.2 % 11.7-14.4 PLATELET COUNT (BEAKER) (test mqep=600) 44 K/CU MM 150-450 MEAN PLATELET VOLUME (BEAKER) (test lejg=724) 10.9 fL 9.4-12.3 NUCLEATED RED BLOOD CELLS (BEAKER) (test ddfz=561) 0 /100 WBC 0-0 NEUTROPHILS RELATIVE PERCENT (BEAKER) (test csgg=772) 47 % LYMPHOCYTES RELATIVE PERCENT (BEAKER) (test xepb=278) 46 % MONOCYTES RELATIVE PERCENT (BEAKER) (test lyla=295) 2 % EOSINOPHILS RELATIVE PERCENT (BEAKER) (test gesz=939) 6 % BASOPHILS RELATIVE PERCENT (BEAKER) (test xpbv=572) 0 % NEUTROPHILS ABSOLUTE COUNT (BEAKER) (test euyw=780) 0.59 K/ L 1.56-6.13 LYMPHOCYTES ABSOLUTE COUNT (BEAKER) (test sfjw=342) 0.57 K/ L 1.18-3.74 MONOCYTES ABSOLUTE COUNT (BEAKER) (test cklm=911) 0.02 K/ L 0.24-0.36 EOSINOPHILS ABSOLUTE COUNT (BEAKER) (test oyye=720) 0.07 K/ L 0.04-0.36 BASOPHILS ABSOLUTE COUNT (BEAKER) (test dpbn=278) 0.00 K/ L 0.01-0.08 IMMATURE GRANULOCYTES-RELATIVE PERCENT (BEAKER) (test cjjr=6393) 0 % 0-1 [id number] 01:08:00* Test Item Value Reference Range Comments FIBRINOGEN LEVEL (BEAKER) (test kghu=684) 375 mg/dl 225-434 POCT-GLUCOSE [id number] 21:51:00* Test Item Value Reference Range Comments POC-GLUCOSE METER (BEAKER) (test kstl=9666) 119 mg/dL 70-110 TESTED AT [address] [address] HEPATIC FUNCTION [id number] 19:48:00* Test Item Value Reference Range Comments TOTAL PROTEIN (BEAKER) (test vuow=166) 8.1 gm/dL 6.0-8.3 ALBUMIN (BEAKER) (test kucu=0761) 3.9 g/dL 3.5-5.0 BILIRUBIN TOTAL (BEAKER) (test tuew=928) 0.8 mg/dL 0.2-1.2 BILIRUBIN DIRECT (BEAKER) (test yony=210) 0.4 mg/dL 0.1-0.5 ALKALINE PHOSPHATASE (BEAKER) (test fbpa=104) 49 U/L 40-150 AST (SGOT) (BEAKER) (test depq=653) 30 U/L 5-34 ALT (SGPT) (BEAKER) (test wjdv=571) 23 U/L 6-55 POCT-GLUCOSE [id number] 16:35:00* Test Item Value Reference Range Comments POC-GLUCOSE METER (BEAKER) (test bntu=6609) 183 mg/dL 70-110 TESTED AT [address] [address] CBC W/PLT COUNT & AUTO [id number] 11:58:00* Test Item Value Reference Range Comments WHITE BLOOD CELL COUNT (BEAKER) (test gfrl=009) 0.8 K/ L 3.5-10.5 RED BLOOD CELL COUNT (BEAKER) (test hfpb=693) 2.31 M/ L 3.93-5.22 HEMOGLOBIN (BEAKER) (test bpkz=472) 7.6 GM/DL 11.2-15.7 HEMATOCRIT (BEAKER) (test ucdp=875) 24.1 % 34.1-44.9 MEAN CORPUSCULAR VOLUME (BEAKER) (test kqwy=465) 104.3 fL 79.4-94.8 MEAN CORPUSCULAR HEMOGLOBIN (BEAKER) (test wyfx=356) 32.9 pg 25.6-32.2 MEAN CORPUSCULAR HEMOGLOBIN CONC (BEAKER) (test ugzp=965) 31.5 GM/DL 32.2-35.5 RED CELL DISTRIBUTION WIDTH (BEAKER) (test zufa=383) 15.3 % 11.7-14.4 PLATELET COUNT (BEAKER) (test jbsk=281) 54 K/CU MM 150-450 MEAN PLATELET VOLUME (BEAKER) (test ywrt=031) 10.4 fL 9.4-12.3 NUCLEATED RED BLOOD CELLS (BEAKER) (test svfv=987) 0 /100 WBC 0-0 (CELLAVISION MANUAL DIFF)2019-01-25 11:58:00* Test Item Value Reference Range Comments NEUTROPHILS - REL (CELLAVISION)(BEAKER) (test doxg=6473) 22 % LYMPHOCYTES - REL (CELLAVISION)(BEAKER) (test weui=6871) 76 % EOSINOPHILS - REL (CELLAVISION)(BEAKER) (test lrqb=0693) 2 % NEUTROPHILS - ABS (CELLAVISION)(BEAKER) (test opep=8848) 0.18 K/ul 1.56-6.13 LYMPHOCYTES - ABS (CELLAVISION)(BEAKER) (test dqwk=2577) 0.61 K/ul 1.18-3.74 EOSINOPHILS - ABS (CELLAVISION)(BEAKER) (test elff=3194) 0.02 K/uL 0.04-0.36 TOTAL COUNTED (BEAKER) (test xupf=7889) 100 RBC MORPHOLOGY (BEAKER) (test gxxi=989) Normal WBC MORPHOLOGY (BEAKER) (test ktgf=079) Normal PLT MORPHOLOGY (BEAKER) (test byar=692) Normal POCT-GLUCOSE [id number] 11:56:00* Test Item Value Reference Range Comments POC-GLUCOSE METER (BEAKER) (test ucou=3932) 99 mg/dL 70-110 TESTED AT [facility] [address] [facility] [address] [id number] 09:09:00* Test Item Value Reference Range Comments FERRITIN (BEAKER) (test anwd=987) 869 ng/mL 5-275 [id number] 08:34:00* Test Item Value Reference Range Comments HAPTOGLOBIN (BEAKER) (test yokv=513) 114 mg/dL 14-258 POCT-GLUCOSE [id number] 07:38:00* Test Item Value Reference Range Comments POC-GLUCOSE METER (BEAKER) (test qlat=2129) 76 mg/dL 70-110 TESTED AT [facility] [address] [place] [address] [id number] 04:08:00* Test Item Value Reference Range Comments FIBRINOGEN LEVEL (BEAKER) (test shce=803) 381 mg/dl 225-434 BASIC METABOLIC [id number] 04:03:00* Test Item Value Reference Range Comments SODIUM (BEAKER) (test zmlh=301) 137 meq/L 136-145 POTASSIUM (BEAKER) (test uplh=393) 4.6 meq/L 3.5-5.1 CHLORIDE (BEAKER) (test ksdj=811) 111 meq/L 98-107 CO2 (BEAKER) (test mhak=514) 18 meq/L 22-29 BLOOD UREA NITROGEN (BEAKER) (test zqbh=232) 59 mg/dL 7-21 CREATININE (BEAKER) (test ryga=273) 2.11 mg/dL 0.57-1.25 GLUCOSE RANDOM (BEAKER) (test zooi=407) 76 mg/dL 70-105 CALCIUM (BEAKER) (test oslr=351) 7.7 mg/dL 8.4-10.2 EGFR (BEAKER) (test pldq=2548) 28 mL/min/1.73 sq m ESTIMATED GFR IS NOT ACCURATE CREATININE CLEARANCE IN PREDICTING GLOMERULAR FILTRATION RATE. ESTIMATED GFR IS NOT APPLICABLE FOR DIALYSIS PATIENTS. [id number] 03:54:00* Test Item Value Reference Range Comments MAGNESIUM (BEAKER) (test pcey=127) 2.6 mg/dL 1.6-2.6 [id number] 03:51:00* Test Item Value Reference Range Comments TRIGLYCERIDES (BEAKER) (test jkcn=722) 67 mg/dL TRIGLYCERIDE REFERENCE RANGELow Risk <150Borderline Risk 150-199High Risk 200- 499Very High Risk >=[id number] 03:51:00* Test Item Value Reference Range Comments MAGNESIUM (BEAKER) (test cant=765) 2.7 mg/dL 1.6-2.6 [id number] 03:51:00* Test Item Value Reference Range Comments PHOSPHORUS (BEAKER) (test zexo=820) 2.9 mg/dL 2.3-4.7 METHOTREXATE [id number] 22:14:00* Test Item Value Reference Range Comments METHOTREXATE LEVEL (BEAKER) (test vcyd=754) < umol/L POCT-GLUCOSE [id number] 21:44:00* Test Item Value Reference Range Comments POC-GLUCOSE METER (BEAKER) (test kalk=2919) 92 mg/dL 70-110 TESTED AT [facility] [address] [facility] [address] RAD, CHEST, 1 VIEW, NON [id number] 17:18:00Reason for exam:->pleural effusionShould this be performed at the bedside?->YesFINAL REPORT TECHNIQUE: Single view of the chest. COMPARISON: 07/27/2008 FINDINGS: The cardiac silhouette is within normal limits. Aortic calcifications are seen. Lungs are clear. No acute skeletal abnormality. Soft tissues appear unremarkable. IMPRESSION: No acute cardiopulmonary disease. Signed: Todd Nichole Verified Date/Time: 01/24/2019 17:18:10 Reading Location: [address] Ortho Consult Reading Room -GLUCOSE [id number] 17:00:00* Test Item Value Reference Range Comments POC-GLUCOSE METER (BEAKER) (test aauq=9518) 98 mg/dL 70-110 TESTED AT [place] [id number] [facility] [address] VITAMIN B12 AND [id number] 05:58:00* Test Item Value Reference Range Comments VITAMIN B12 (BEAKER) (test tyrb=047) 379 pg/mL 213-816 FOLATE (BEAKER) (test twvw=045) > ng/mL >=7.0 HEPATITIS B [id number] 05:16:00* Test Item Value Reference Range Comments HEPATITIS B CORE TOTAL ANTIBODY (BEAKER) (test awjy=194) Nonreactive Nonreactive HEPATITIS B SURFACE ANTIBODY (BEAKER) (test klqc=531) < mIU/mL <8.0 HEPATITIS B SURFACE ANTIGEN (2) (BEAKER) (test xxwn=4087) Nonreactive Nonreactive HEPATITIS C [id number] 05:00:00* Test Item Value Reference Range Comments HEPATITIS C ANTIBODY (BEAKER) (test ynlk=680) Nonreactive Nonreactive HIV-1 ANTIGEN WITH HIV-1/2 [id number] 05:00:00* Test Item Value Reference Range Comments HIV-1 ANTIGEN WITH HIV 1\\T\\2 ANTIBODY (2) (BEAKER) (test roba=1072) Nonreactive Nonreactive (CELLAVISION MANUAL DIFF)2019-01-24 02:06:00* Test Item Value Reference Range Comments NEUTROPHILS - REL (CELLAVISION)(BEAKER) (test xiww=1656) 46 % LYMPHOCYTES - REL (CELLAVISION)(BEAKER) (test hoej=1822) 46 % MONOCYTES - REL (CELLAVISION)(BEAKER) (test xymr=2652) 2 % EOSINOPHILS - REL (CELLAVISION)(BEAKER) (test xcwv=5896) 4 % BASOPHILS - REL (CELLAVISION)(BEAKER) (test qnbm=9630) 2 % NEUTROPHILS - ABS (CELLAVISION)(BEAKER) (test iffk=6451) 0.41 K/ul 1.56-6.13 LYMPHOCYTES - ABS (CELLAVISION)(BEAKER) (test kjzp=6700) 0.41 K/ul 1.18-3.74 MONOCYTES - ABS (CELLAVISION)(BEAKER) (test aocd=3349) 0.02 K/uL 0.24-0.36 EOSINOPHILS - ABS (CELLAVISION)(BEAKER) (test clbp=1194) 0.04 K/uL 0.04-0.36 BASOPHILS - ABS (CELLAVISION)(BEAKER) (test zhvd=8922) 0.02 K/uL 0.01-0.08 TOTAL COUNTED (BEAKER) (test qsmx=1786) 100 SMUDGE CELLS (BEAKER) (test gsjs=0372) Present GIANT PLATELETS (BEAKER) (test ongq=617) Present ANISOCYTOSIS (BEAKER) (test tmmf=851) 1+ few MACROCYTES (BEAKER) (test ujrl=194) 1+ few POIKILOCYTES (BEAKER) (test dnvp=936) 1+ few ROULEAUX (BEAKER) (test wzqz=296) 1+ few OVALOCYTES (BEAKER) (test yayr=173) 1+ few TEAR DROP CELLS (BEAKER) (test tzvd=022) 1+ few ARTIFACT (CELLAVISION)(BEAKER) (test mjen=9987) Present PLATELET CONCENTRATION (CELLAVISION)(BEAKER) (test nmfy=6739) Decreased Received comment: User comments: Slide comments: CBC W/PLT COUNT & AUTO [id number] 02:05:00* Test Item Value Reference Range Comments WHITE BLOOD CELL COUNT (BEAKER) (test tjvl=872) 0.9 K/ L 3.5-10.5 RED BLOOD CELL COUNT (BEAKER) (test osbo=698) 1.90 M/ L 3.93-5.22 HEMOGLOBIN (BEAKER) (test qtxn=125) 6.4 GM/DL 11.2-15.7 HEMATOCRIT (BEAKER) (test tbxw=129) 20.3 % 34.1-44.9 MEAN CORPUSCULAR VOLUME (BEAKER) (test osab=642) 106.8 fL 79.4-94.8 MEAN CORPUSCULAR HEMOGLOBIN (BEAKER) (test dtcq=067) 33.7 pg 25.6-32.2 MEAN CORPUSCULAR HEMOGLOBIN CONC (BEAKER) (test meim=678) 31.5 GM/DL 32.2-35.5 RED CELL DISTRIBUTION WIDTH (BEAKER) (test mvck=455) 13.9 % 11.7-14.4 PLATELET COUNT (BEAKER) (test boix=834) 30 K/CU MM 150-450 MEAN PLATELET VOLUME (BEAKER) (test wusr=258) 10.4 fL 9.4-12.3 NUCLEATED RED BLOOD CELLS (BEAKER) (test ccna=908) 0 /100 WBC 0-0 IRON, TIBC, % SAT. (WITHOUT FERRITIN)2019-01-24 01:59:00* Test Item Value Reference Range Comments IRON (BEAKER) (test qaiy=785) 252.0 ug/dL 40.0-160.0 TOTAL IRON BINDING CAPACITY (BEAKER) (test nvel=250) 285 ug/dL 250-450 IRON % SATURATION (2) (BEAKER) (test lbnf=2222) 88 % 20-55 BASIC METABOLIC [id number] 01:44:00* Test Item Value Reference Range Comments SODIUM (BEAKER) (test kmbk=423) 136 meq/L 136-145 POTASSIUM (BEAKER) (test ybca=598) 4.5 meq/L 3.5-5.1 CHLORIDE (BEAKER) (test mxug=753) 107 meq/L 98-107 CO2 (BEAKER) (test aiqh=501) 19 meq/L 22-29 BLOOD UREA NITROGEN (BEAKER) (test eqbh=714) 80 mg/dL 7-21 CREATININE (BEAKER) (test hmvb=180) 2.62 mg/dL 0.57-1.25 GLUCOSE RANDOM (BEAKER) (test vhhb=030) 97 mg/dL 70-105 CALCIUM (BEAKER) (test ddak=381) 7.8 mg/dL 8.4-10.2 EGFR (BEAKER) (test nbfp=3093) 22 mL/min/1.73 sq m ESTIMATED GFR IS NOT ACCURATE CREATININE CLEARANCE IN PREDICTING GLOMERULAR FILTRATION RATE. ESTIMATED GFR IS NOT APPLICABLE FOR DIALYSIS PATIENTS. LACTATE DEHYDROGENASE (LDH)2019-01-24 01:41:00* Test Item Value Reference Range Comments LACTATE DEHYDROGENASE (BEAKER) (test dxhe=354) 228 U/L 125-220 PROTHROMBIN TIME/[id number] 01:38:00* Test Item Value Reference Range Comments PROTIME (BEAKER) (test lxeo=599) 14.2 seconds 11.7-14.7 INR (BEAKER) (test czih=151) 1.1 <=5.9 RECOMMENDED COUMADIN/WARFARIN INR THERAPY RANGESSTANDARD DOSE: 2.0 - 3.0 Inclu feroz: PROPHYLAXIS for venous thrombosis, systemic embolization; TREATMENT for angela ous thrombosis and/or pulmonary embolus.HIGH RISK: Target INR is 2.5-3.5 for pat ients with mechanical heart valves.CHEST SINGLE (PORTABLE)2019-01-23 18:18:00 [place] [address] Patient Name: CUCO VAZQUEZ MR #: [id number] : 1950 Age/Sex: 68/F Req #: [id number] Adm Physician: Ordered by: KAYE MAHER VERIFIER OPERATOR Report #: [id number] Location: ER Room/Bed: Procedure: [id number] DX/CH EST SINGLE (PORTABLE) Exam Date: 01/23/19 Exam Time: 1800 REPORT STATUS: Signed Exam ination: Single AP view of the chest. COMPARISON: None. INDICATION: Bl isters in mouth DISCUSSION: Lines/tubes: None. Lungs: The lungs are well inflated and clear. No pneumonia or pulmonary edema. Pleura: No pleural effusion or pneumothorax. Heart and mediastinum: Prominent he art size. Bones and soft tissues: No acute bony abnormalities. Degenerati ve changes in the thoracic spine. IMPRESSION: 1. No acute cardiop ulmonary abnormalities. Signed by: Dr. Becca Forde M.D. on 01/23/2019 6: 19 PM Dictated By: BECCA FORDE MD 18 Transcribed By: CHERYLE on 01/23/191818 CO PY TO: KAYE MAHER NP CT BRAIN [id number] 18:18:00 [place] [address] Patient Name: CUCO VAZQUEZ MR #: [id number] : 1950 Age/Sex: 68/F Req #: [id number] Adm Physician: Ordered by: KAYE MAHER NP Report #: [id number] Location: ER Room/Bed: Procedure: [id number] CT/CT BRAIN WO Exam Date: 01/23/19 Exam Time: 1800 REPORT STATUS: Signed History:Low plat elets Comparison studies:None Technique: Axial images were obtained fro m the skull base to the vertex. Coronal and sagittal images reconstructed from the axial data. Intravenous contrast: None Dose modulation, iterative recon struction, and/or weight based adjustment of the mA/kV was utilized to reduce the radiation dose to as low as reasonably achievable. Findings: Sca lp/skull: No abnormalities. Extra-axial spaces: No masses. No fluid collections. Brain sulci: Mildly prominent. Ventricles: Mild compensatory dilatation. No hydrocephalus. Parenchyma: Few hypodensities in the supr atentorial white matter are small vessel ischemic changes. No masses, hemorrha ge, acute or chronic cortical vascular insults. Sellar/suprasellar region: No abnormalities. Craniocervical junction: Patent foramen magnum. No Chiari o ne malformation. Incidental findings: Atherosclerotic calcifications in t he carotid siphons . Impression: No acute abnormalities. Chronic findings: 1. Mild generalized volume loss. 2. Mild supratentorial white ma tter small vessel ischemic changes. Signed by: Nadeem Beavers on 01/23/2019 6:21 PM Dictated By: ROSHNI PLUMMER MD 20 Transcribed By: CHERYLE on 0 01/23/191820 COPY TO: KAYE MAHER NP
--- NOTE | 2019-02-16 18:04 | Diagnostic Imaging Report ---
ADDENDUM #1 I have reviewed the images and agree with findings in the preliminary report. Signed by: Dr. Sarai Canchola M.D. on 02/16/2019 8:09 PM ORIGINAL REPORT Exam: Noncontrast Head CT History: 68-year-old female, altered male status Comparison studies: Head CT dated 01/23/2019 Technique: Axial images were obtained from the skull base to the vertex. Coronal and sagittal reconstructions obtained from the axial data. Dose modulation, iterative reconstruction, and/or weight based adjustment of the mA/kV was utilized to reduce the radiation dose to as low as reasonably achievable. Findings: Scalp/skull: No abnormalities. No fractures, blastic or lytic lesions. Extra-axial spaces: No masses. No fluid collections. Brain sulci: Mildly prominent. Ventricles: Normal in size and configuration. No hydrocephalus. Parenchyma: Mild white matter hypoattenuating foci likely representing sequela microvascular ischemic angiopathy.. No masses, hemorrhage, acute or chronic cortical vascular insults. Sellar/suprasellar region: No abnormalities Craniocervical junction: Patent foramen magnum. No Chiari one malformation. Other findings: Small amount of aerated secretions in the left sphenoid sinus. IMPRESSION: No acute abnormalities. Chronic findings: Mild generalized volume loss. Mild white matter microvascular ischemic changes. Report dictated by neuroradiology fellow. Final read to follow. Signed by: Norman Ramirez MD on 02/16/2019 6:00 PM
--- NOTE | 2019-02-16 18:05 | Diagnostic Imaging Report ---
EXAMINATION: CHEST SINGLE (PORTABLE) INDICATION: ^ERMD ORDER ^[id number] ^1743 ^Y COMPARISON: Chest radiograph dated 01/23/2019 FINDINGS: AP view TUBES and LINES: None. LUNGS/PLEURA: The lungs are clear. No pleural effusion or pneumothorax. HEART AND MEDIASTINUM: The cardiomediastinal silhouette is unremarkable. BONES AND SOFT TISSUES: No acute osseous lesion. Soft tissues are unremarkable. UPPER ABDOMEN: No free air under the diaphragm. IMPRESSION: No acute thoracic abnormality. Signed by: Norman Ramirez MD on 02/16/2019 6:01 PM
[2019-02-16 19:14] LABS: BASOPHILS # (AUTO) 0.1 (0.0-0.1); BASOPHILS % 0.9 % (0.0-1.0); EOSINOPHILS # (AUTO) 0.1 (0.0-0.4); EOSINOPHILS % 0.6 % (0.0-6.0); HEMATOCRIT 37.8 % (34.2-44.1); HEMOGLOBIN 12.3 g/dL (12.0-16.0); LYMPHOCYTES # (AUTO) 1.4 (1.0-3.2); LYMPHOCYTES % 10.8 % (18.0-39.1); MEAN CORPUSCULAR HEMOGLOBIN 32.1 pg (28-32); MEAN CORPUSCULAR HGB CONC 32.5 g/dL (31-35); MEAN CORPUSCULAR VOLUME 98.7 fL (81-99); MONOCYTES # (AUTO) 1.3 (0.2-0.8); MONOCYTES % 10.4 % (4.4-11.3); NEUTROPHILS # (AUTO) 9.5 (2.1-6.9); NEUTROPHILS % 75.1 % (38.7-80.0); PLATELET COUNT 213 x10e3/uL (140-360); RED BLOOD COUNT 3.83 x10e6/uL (3.6-5.1); RED CELL DISTRIBUTION WIDTH 15.1 % (11.7-14.4)
[2019-02-16 19:23] LABS: BILIRUBIN,URINE NEGATIVE (NEGATIVE); CLARITY,URINE CLEAR (CLEAR); COLOR,URINE YELLOW (YELLOW); KETONES,URINE NEGATIVE (NEGATIVE); LEUKOCYTE ESTERASE ,URINE NEGATIVE (NEGATIVE); NITRITE,URINE NEGATIVE (NEGATIVE); PROTEIN,URINE DIPSTICK NEGATIVE (NEGATIVE); URINE UROBILINOGEN 0.2 mg/dL (0.2 - 1)
[2019-02-16 19:24] LABS: INR 1.06; PROTHROMBIN TIME 14.3 seconds (11.9-14.5)
[2019-02-16 19:32] LABS: ALBUMIN 3.9 g/dL (3.5-5.0); ALBUMIN/GLOBULIN RATIO 0.7 (0.8-2.0); ANION GAP 20.1 mmol/L (8-16); CALCIUM 9.1 mg/dL (8.4-10.2); CREATININE, SERUM 5.49 mg/dL (0.57-1.11); POTASSIUM 5.1 mmol/L (3.5-5.1)
[2019-02-16 19:35] LABS: AMORPHOUS SEDIMENT,URINE FEW (FEW); BACTERIA,URINE MODERATE /HPF
[2019-02-16] MEDS ORDERED: SODIUM CHLORIDE 0.9% 1000ML 1,000 ML IV ONE (20:45)
[2019-02-16] MEDS ORDERED: DEXTROSE 50% SYRINGE 50 ML IV PRN (21:00)
[2019-02-16] MEDS: INSULIN LISPRO 100 UNIT/1 ML 3ML VIAL SQ SCH (21:00)
[2019-02-16] MEDS ORDERED: ONDANSETRON HCL INJ 2MG/ML 2ML 2 MG/ML VIAL IV PRN (21:00)
[2019-02-16] MEDS ORDERED: ACETAMINOPHEN 325 MG TAB PO PRN (21:00)
[2019-02-16] MEDS ORDERED: DEXTROSE 5%/0.9% SOD CHL 1,000 ML IV ONE (21:15)
[2019-02-16] MEDS ORDERED: DEXTROSE 50% SYRINGE 50 ML IV ONE (21:15)
[2019-02-16 21:17] LABS: LYMPHOCYTES % (MANUAL) 4 % (19-48); MONOCYTES % (MANUAL) 7 % (3.4-9.0); NEUTROPHILS % (MANUAL) 85 % (40-74); PROMYELOCYTES % (MANUAL) 4 % (0-0)
[2019-02-16] MEDS ORDERED: BUMETANIDE1 MG PO (21:36)
[2019-02-16] MEDS ORDERED: CYMBALTA30 MG PO (21:36)
[2019-02-16] MEDS ORDERED: TYLENOL WITH C1 EACH PO (21:36)
[2019-02-16] MEDS ORDERED: GABAPENTIN400 MG PO (21:36)
--- OUTSIDE RECORDS SUMMARY | 2019-02-16 23:16 | XMS REPORT | Clinical Summary ---
Author Author ELVIA [facility] Address Unknown Phone Unavailable Care Team Providers Care Geothermal Hvac Technician Name Role Phone Faustino Aburto Jorge PCP [...] bleeding; MICHAEL (acute kidney injury) (HCC) 01/23/2019 [facility] General Internal Medicine - Encounter 02/04/2019 [...] ms QTC Calculatio n(Bazett) 412 ms P [place] 38 degrees R [place] 21 degrees T [place] 29 degrees Normal sinus rhythm Nonspecifi c [...] - 110 mg/dL [facility] [address] [facility] [address] Specimen Blood Performing Organization Address City/State/Zipcode Phone Number [facility] [address] [place] [address] [facility] * Manual Differential (02/04/2019 4:52 AM CDT) Only the most recent of 11 results within the time period is included. % Neutros 17 % [facility] % Lymphs 44 % [facility] % Monos 22 % [facility] % Eos 8 % [facility] % Baso 1 % [facility] % Metamyelo 1 (H) 0 - 0 % [facility] % Atypical Lymphs 7 (H) 0 - 0 % [facility] # Neutros 0.37 (L) 1.56 - 6.13 K/ul [facility] # Lymphs 0.97 (L) 1.18 - 3.74 K/ul [facility] # Monos 0.48 (H) 0.24 - 0.36 K/uL [facility] # Eos 0.18 0.04 - 0.36 K/uL [facility] # Baso 0.02 0.01 - 0.08 K/uL [facility] # Metamyelo 0.02 (H) 0.00 - 0.00 K/uL [facility] # Atypical Lymphs 0.15 (H) 0.00 - 0.00 K/uL [facility] Total Counted 100 [facility] WBC Morphology Normal [facility] Giant Platelet Present [facility] Large Platelet Present [facility] Polychromasia 1+ few [facility] Hypochromia 1+ few [facility] Anisocytosis 1+ few [facility] Poikilocytes 1+ few [facility] Schistocytes 1+ few [facility] Spherocytes 1+ few [facility] Ovalocytes 1+ few [facility] Acanthocytes 1+ few [facility] Artifact Present [facility] Helmet Cells 1+ few [facility] Platelet Conc Increased [facility] Specimen Blood Narrative Performed At Received comment: [facility] User comments: [facility] Slide comments: Performing Organization Address City/[facility] Phone Number [facility] [address] [place] [address] [facility] * CBC with platelet count + automated diff (02/04/2019 4:52 AM CDT) Only the most recent of 12 results within the time period is included. WBC 2.2 (L) 3.5 - 10.5 K/L [facility] RBC 2.81 (L) 3.93 - 5.22 M/L [facility] Hemoglobin 9.1 (L) 11.2 - 15.7 GM/DL [facility] Hematocrit 27.8 (L) 34.1 - 44.9 % [facility] MCV 98.9 (H) 79.4 - 94.8 fL [facility] MCH 32.4 (H) 25.6 - 32.2 pg [facility] MCHC 32.7 32.2 - 35.5 GM/DL [facility] RDW 14.9 (H) 11.7 - 14.4 % [facility] Platelets 530 (H) 150 - 450 K/CU MM [facility] MPV 9.7 9.4 - 12.3 fL [facility] nRBC 0 0 - 0 /100 WBC [facility] Specimen Blood Performing Organization Address City/[facility]/Zipcode Phone Number [facility] [address] [address] [facility] * Erythropoietin (02/03/2019 2:33 PM CDT) Only the most recent of 2 results within the time period is included. Scan Result [facility] Erythropoietin 20.6 (H) 2.6 - 18.5 mIU/mL [facility] Specimen Blood Narrative Performed At [facility] [employer] [place] [address] [place] [address] Anabel Robledo MD, PhD, DANYA Performing Organization Address City/[facility]code Phone Number [facility] [place], [address] [facility] [address] * Phosphorus (02/03/2019 4:57 AM CDT) Only the most recent of 2 results within the time period is included. Phosphorus 3.2 2.3 - 4.7 mg/dL [facility] Specimen Blood Performing Organization Address City/[facility] Phone Number [address] [address] [phone] [place] [address] * Basic Metabolic Panel (02/03/2019 4:57 AM CDT) Only the most recent of 10 results within the time period is included. Sodium 138 136 - 145 meq/L [facility] Potassium 4.1 3.5 - 5.1 meq/L [facility] Chloride 110 (H) 98 - 107 meq/L [facility] CO2 21 (L) 22 - 29 meq/L [facility] BUN 25 (H) 7 - 21 mg/dL [facility] Creatinine 1.52 (H) 0.57 - 1.25 mg/dL [facility] Glucose 72 70 - 105 mg/dL [facility] Calcium 9.0 8.4 - 10.2 mg/dL [facility] EGFR 41Comment: ESTIMATED GFR IS mL/min/1.[address] [facility] NOT ACCURATE CREATININE [facility] CLEARANCE IN PREDICTING GLOMERULAR FILTRATION RATE. ESTIMATED GFR IS NOT APPLICABLE FOR DIALYSIS PATIENTS. Specimen Blood Performing Organization Address City/State/Zipcode Phone Number [facility] [address] [place] [address] MED[facility] CENTER * TRANSFUSION SERVICE REPORT - SCAN (01/31/2019 6:02 PM CDT) Only the most recent of 4 results within the time period is included. Narrative Performed At * Prepare Leuko-Red PLT (01/30/2019 11:54 PM CDT) Only the most recent of 2 results within the time period is included. Unit ABO A Pos [place] UNIT NUMBER [id number] [place] Status [place]_TIMEINCHART [place] Blood Bank Product PLATELETS [place] PRODUCT CODE [id number] [place] Specimen Blood Performing Organization Address [facility] [place] Phone [place] * Prepare Leuko-Red RBC (01/30/2019 11:54 PM CDT) Only the most recent of 2 results within the time period is included. CROSSMATCH COMPATIBLE [place] Unit ABO A Pos [place] UNIT NUMBER [id number] [place] Status [place]_TIMEINCHART [facility] Blood Bank Product RED BLOOD CELLS [place] PRODUCT CODE [id number] [place] Specimen Other Performing Organization Address City/[facility] [place] Phone Number [place] * ECHOCARDIOGRAM REPORT - SCAN (01/30/2019 9:22 PM CDT) Narrative Performed At * Chromosomes Cancer Study (01/30/2019 2:51 PM CDT) Scan Result [facility] Specimen Bone Marrow Narrative Performed At Performing Organization Address City/State/Zipcode Phone Number [facility] [address] [facility] [place] [address] GENETICS * 2D Echo W/Doppler(CW/PW/Color) (01/30/2019 1:38 PM CDT) Ejection Fraction [facility] Specimen Narrative Performed At Transthoracic Echocardiography Report (TTE) [facility]CHO [facility] Demographics [facility] Patient Name CUCO VAZQUEZ Date of Study 01/30/2019 [id number] GenderFemale Visit Number [id number] RaceBlack Accession Number [id number] Number 934 Date of Birth1950 Referring Physician Keenan Hale RES Age68 year(s) Reel Assembler Kelsey Tse [facility] AnalystAlex Ulisses Burns MD Physician Procedure Type [...] of Study 01/30/2019 Gender Female Visit Number [id number] Race Black Accession Number [id number] Room Number 934 Date of 1950 Referring Physician Keenan Hale RES Age 68 year(s) Reel Assembler Kelsey Tse [facility] Hospital Admissions Officer Paramjit Lane Interpreting Camilo Burns MD Physician [...] AM CDT) Flow Cytometry See Separate Report [facility] Case # [id number] [facility] Specimen Bone Marrow Performing Organization Address City/[facility]/Zipcode Phone Number [place] [phone] [address] CENTER * Flow Cytometry (01/30/2019 11:36 AM CDT) Case Report Flow Cytometry [facility] Report [facility] Case: [id number] Authorizing Provider:Mckenzie Rojas Collected: 01/30/2019 1136 Ordering Location: [address] Received: 01/30/2019 1254 Service Pathologist: Yordy Painter MD Specimen:Other Flow Interpretation BONE MARROW, FLOW CYTOMETRY: [facility] BLASTS ACCOUNT FOR 6.55% OF [facility] ANALYZED EVENTS. NO MONOCLONAL B CELL POPULATION. NO ABNORMAL T CELL POPULATION. CORRELATION WITH MORPHOLOGIC FINDINGS REQUIRED. CPT Code(s) 21055 [facility] CLINICAL HISTORY Pancytopenia [facility] SPECIMEN SOURCE Bone marrow [facility] CELLULAR BIOMARKER CD8, surface-Pastos, CD56, [facility] ANALYSIS surface-Lambda, CD5, CD19, [facility] CD10, CD3, CD20, CD4, CD45, CD14, CD13, CD33, CD117, CD34, cKappa, cLambda, CD38, CD138 IMMUNOPHENOTYPIC FINDINGS Specimen Viability: 93.1% [facility] Blasts: The dim CD45+ CD34+ [facility] blasts comprise 6.55% of total cells. [...] were developed and [facility] their performance [facility] characteristics determined by [facility] They have not been cleared or [...] Other Performing Organization Address City/State/Zipcode Phone Number [facility] [address] [place] [address] [facility] [place] * BONE MARROW PROCESS. (01/30/2019 11:34 AM CDT) Anatomic Case# [id number] [facility] Ordering Physician LAURA [facility] Performing Physician Mono [facility] Clot Rec'd? Yes [facility] Biopsy Rec'd? Yes [facility] Rec'd for Culture? No [facility] Rec'd for Flow? Yes [facility] Rec'd for Cytogenetics? Yes [facility] Rec'd for Molecular Yes [facility] Genetics? [facility] Specimen Bone Marrow Narrative Performed At [facility] collection by Dr Villareal. Slides are good(Dhara) [facility] Performing Organization Address City/[facility]/Zipcode Phone Number [facility] [address] [place] [address] MEDICAL CENTER * Bone Marrow Exam (01/30/2019 10:20 AM CDT) Case Report Bone Marrow Pathology [facility] Report [facility] Case: [id number] Authorizing Provider:Mckenzie Rojas Collected: 01/30/2019 1020 Ordering Location: [address] Received: 01/30/2019 1136 Service Pathologist: Yordy Painter MD Specimens: A) - Iliac Crest, Right B) - C) - ADDENDUM Karyotype is reported to be [facility] 46,XX[20]. [facility] See attached scanned report. DIAGNOSIS BONE MARROW ASPIRATE, CLOT, [facility] AND DECALCIFIED BIOPSY: [facility] NORMOCELLULAR MARROW (40%) WITH DYSMEGAKARYOPOIESIS AND RELATIVE ERYTHROID HYPERPLASIA. BLASTS ARE INCREASED (8% BY MANUAL COUNT). CYTOGENETIC STUDIES PENDING, SEE DIAGNOSTIC COMMENT. PERIPHERAL BLOOD: PANCYTOPENIA. NO CIRCULATING BLASTS. Signing Pathologist Direct Phone Line: [phone] COMMENT This patient has a reported 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 In the absence of non-neoplastic etiologies or acute phase responses, the findings raise concern for the presence of a myelodysplastic syndrome. However correlation with clinical follow up and molecular cytogenetic studies is required for complete interpretation. The results of these ancillary studies will be released in an addendum report. This case was discussed with Dr. Mckenzie Rojas, clinical chocolatier, on 02/02/2019. CPT Code(s) 59730; 80386; 02344 x 2; [facility] [address]; [address]29[address], [address], [address] [facility] CLINICAL HISTORY Anemia [facility] SPECIMEN SOURCE B. Bone marrow clot. C. Bone [facility] marrow biopsy [facility] GROSS DESCRIPTION Part B. Received in formalin, [facility] labeled with the patient's [facility] information and "marrow" is a dupont-red [...] BONE MARROW ASPIRATE: [facility] QUALITY: [facility] Aspirate- Adequate Touch imprint- Adequate MARROW [...] interpretation of this [facility] case included the use of [facility] immunohistochemistry or special stains. BLOCK B1- PERLS IRON BLOCK C1- CD34 Immunohistochemistry technical testing was performed at [facility], Pathology Laboratory where it was [...] At Performing Organization Address City/State/Zipcode Phone Number [place] [phone] * Troponin I (01/30/2019 2:47 AM CDT) Troponin I <0.01 0.00 - 0.03 ng/mL [facility] Specimen Blood Narrative Performed At Troponin I (TnI) levels must be interpreted in the context of the presenting [facility] symptoms and the clinical findings. Elevated TnI levels indicate myocardial [facility] damage, but are not specific for ischemic heart disease. Elevated TnI levels are seen in patients with other cardiac conditions (including myocarditis and congestive heart failure), and slight TnI elevations occur in patients with other conditions, including sepsis, renal failure, acidosis, acute neurological disease, and persistent tachyarrhythmia. Performing Organization Address City/State/Zipcode Phone Number [place] [phone] * XR chest 1 view portable / bedside (01/30/2019 2:44 AM CDT) Only the most recent of 2 results within the time period is included. Specimen Narrative Performed At FINAL REPORT [facility] ([place], [place]) Chest one view. Clinical history: chest pain, [...] MD Report Verified Date/Time:01/30/2019 03:09:04 Reading Location: [address] Body Reading Room Procedure Note [...] Report Verified Date/Time: 01/30/2019 03:09:04 Reading Location: [facility] [id number] CT Body Reading Room Performing Organization Address City/[facility]alsIn[facility]orta Phone Number GE RIS * ECG 12 lead (01/30/2019 2:23 AM CDT) Specimen Narrative Performed At Ventricular Rate 68 BPM GE MUSE Atrial Rate 68 BPM P-R Interval 138 ms QRS Duration 74 ms Q-T Interval 388 ms QTC Calculation(Bazett) 412 ms P [place] 38 degrees R [place] 21 degrees T [place] 29 degrees Normal sinus rhythm Normal ECG [...] 388 ms QTC Calculation(Bazett) 412 ms P [place] 38 degrees R [place] 21 degrees T [place] 29 degrees Normal sinus rhythm Normal ECG When compared with ECG of 27-JUL-2008 17:09, No significant change was found Confirmed by Juan Ramon MCKEON MICHAEL ([id number]) on 01/30/2019 7:43:20 AM Performing Organization Address [facility] HospitalsNegotiantwy Phone Number [facility] MUSE * Transfuse Leuko-Red PLT (01/29/2019 4:07 [...] is included. ABO/RH AUTOMATED (BEAKER) A POSITIVE [facility] Ab Scrn NEGATIVE [facility] Specimen Blood Performing Organization Address City/[facility]code Phone Number [address] * Peripheral Blood Smear - Hold only (01/28/2019 5:00 AM CDT) Peripheral Smear Save saved [facility] Specimen Blood Performing Organization Address [facility] Hospitalscowy Phone Number [place] [phone] * Clostridium difficile GDH Toxin (01/27/2019 3:28 PM CDT) C. Difficle Toxin Negative Negative [facility] C. Difficile GDH Antigen NegativeComment: No indication Negative [facility] of Clostridium difficile [facility] infection and no colonization. Discontinue enteric isolation and therapy. Specimen Stool Narrative Performed At Testing performed by [employer] Rapid Cassette Assay.For GDH, published [facility] sensitivity of the assay is 98.7% compared to cytotoxicity testing.For Toxin [facility] AB, published sensitivity is 87.8% and specificity 99.4% compared to cytotoxicity testing. Verification of kit performance was done by the [facility] Microbiology Lab prior to clinical use. Performing Organization Address City/[facility] Phone Number [address] [address] [phone] * Blood Culture - Routine (Left Venipuncture) (01/26/2019 3:50 PM CDT) Only the most recent of 4 results within the time period is included. Result No growth in 5 days [facility] Specimen Blood Performing Organization Address City/[facility]/Zipcode Phone Number [facility] [address] [place] [address] [facility] * EBV VIRAL LOAD (01/26/2019 1:01 PM CDT) EBV Viral Load Negative or below the linear [facility] range of the assay (<500 [facility] copies/mL) Specimen Blood Narrative Performed At This assay was performed by real-time PCR for the detection of the Wilfrido-Bautista [facility] virus (EBV) gene EBNA-1.The test is composed of (1) DNA extraction from [facility] patient specimen, and (2) real-time PCR amplification and detection with [id number] primers and probes. A well-conserved region of the EBNA-1 gene is targeted, along with an internal control sequence used to confirm PCR amplification. Asymptomatic carriers and viral genetic variation, among other factors, can affect the accuracy of nucleic acid testing; therefore, results should be interpreted in light of clinical data. This test was developed and its performance characteristics determined by the [facility] Pathology Department, Section of Molecular Pathology. It has not been cleared or approved by the U.S. Food and Drug Administration (FDA), since FDA approval is not required for clinical use of the test. Validation was done as required by The Clinical Laboratory Improvement Amendments of 1988. Performing Organization Address City/State/Zipcode Phone Number [facility] [address] [place] [address] [facility] * RESPIRATORY PANEL [facility] (01/26/2019 12:49 PM CDT) Human Metapneumovirus Not detected Not detected, [facility] Rhinovirus Not detected Not detected, [facility] Influenza A Not detected Not detected, [facility] INFLUENZA A (NO SUBTYPE) Not detected, [facility] Influenza A subtype H1 Not detected, [facility] Influenza A Subtype H3 Not detected, [facility] Influenza A Subtype Not detected, Equivocal [facility] H1-2009 [facility] Influenza B Not detected Not detected, [facility] Respiratory Syncytial Not detected Not detected, Equivocal [facility] Virus [facility] Parainfluenza Virus 1 Not detected Not detected, [facility] Parainfluenza Virus 2 Not detected Not detected, [facility] Parainfluenza virus 3 Not detected Not detected, [facility] Parainfluenza Virus 4 Not detected Not detected, [facility] Adenovirus Not detected Not detected, [facility] Coronavirus 229E Not detected Not detected, [facility] Coronavirus HKU1 Not detected Not detected, [facility] Coronavirus NL63 Not detected Not detected, [facility] Coronavirus OC43 Not detected Not detected, [facility] Bordetella Pertussis Not detected Not detected, [facility] Chlamydophila Pneumoniae Not detected Not detected, [facility] Mycoplasma Pneumoniae Not detected Not detected, [facility] Specimen Nasopharyngeal - Nasal, Right Narrative Performed At Other viruses and bacteria not targeted by this PCR panel cannot be excluded; [facility] therefore clinical correlation and follow up of serology, culture results, and [facility] other molecular studies is required. The results are not intended to be used as the sole means for clinical diagnosis or patient management decisions. This sample was tested at the [facility] Molecular Diagnostics Laboratory using the [place] [employer] Respiratory Panel. It is FDA cleared and has been verified and approved by the [facility] Molecular Diagnostics Laboratory for clinical use on nasal swab specimens. It is not FDA-cleared for use on bronchial wash/lavage samples. However, for this sample type, validation was performed and test characteristics were determined and approved, by [facility] Molecular Diagnostics laboratory for clinical use under the Clinical Laboratory Improvement Amendments (CLIA) of 1988 requirements. Therefore, FDA clearance is not required.This laboratory is CLIA-certified and [employer] [place] (CAP)-accredited to perform high complexity testing. Performing Organization Address City/[facility]code Phone Number [facility] [address] [place] [address] [facility] * Fibrinogen (01/26/2019 12:18 AM CDT) Only the most recent of 2 results within the time period is included. Fibrinogen 375 225 - 434 mg/dl [facility] Specimen Blood Performing Organization Address City/[facility] [facility] Phone Number [facility] [address] [place] [address] [facility] * Hepatic function panel (01/26/2019 12:18 AM CDT) Only the most recent of 2 results within the time period is included. Protein, Total 7.2 6.0 - 8.3 gm/dL [facility] Albumin 3.5 3.5 - 5.0 g/dL [facility] Total Bilirubin 0.7 0.2 - 1.2 mg/dL [facility] Bilirubin, Direct 0.3 0.1 - 0.5 mg/dL [facility] Alkaline Phosphatase 42 40 - 150 U/L [facility] AST 24 5 - 34 U/L [facility] ALT 18 6 - 55 U/L [facility] Specimen Blood Performing Organization Address City/[facility]code Phone Number [place] [phone] [place] [address] [phone] [place] [address] * Parovirus B19 PCR, qualitative (01/25/2019 7:11 PM CDT) Scan Result [facility] Source-Body Site SER[facility] Parvovirus B19 DNA NOT DETECTED [facility] Comment: INCORPORATED The primers/probe used in this assay will detect parvovirus B19 and V9 (genotypes 1 ?? 3) but may not detect parvovirus genotype 2. The majority of circulating Parvovirus B19 strains in the [place] are genotype 1. Genotype 2 is not believed to circulate widely in the [facility], but has been associated with similar clinical features as genotype 1. Genotype 3 is most prevalent in some countries. REFERENCE RANGE: NOT DETECTED This test was developed and its analytical performance characteristics have been determined by [facility]. It has not been cleared or approved by FDA. This assay has been validated pursuant to the CLIA regulations and is used for clinical purposes. Specimen Blood Narrative Performed At [facility] *QDID [facility] [address] [place] [address] Lopez Reynolds MD Performing Organization Address [facility]y Phone Number [facility], [address] [facility] [address] * PARVOVIRUS B19 IGM (01/25/2019 8:02 AM [...] Specimen Blood Narrative Performed At [facility]forming [facility] *[facility] [address] [place] [address] Lopez Reynolds MD Performing Organization Address [facility] Phone Number [facility] [place], [address] [facility] [address] * PARVOVIRUS B19 IGG (01/25/2019 8:02 AM CDT) Parvovirus B19 Igg 4.9 (H) [facility] Comment: [facility]PORATED REFERENCE RANGE: <0.9 INTERPRETIVE CRITERIA: <0.9 Negative 0.9 - 1.1 Equivocal >1.1 Positive IgG persists for years and provides life-long immunity. To diagnose current infection, consider Parvovirus B19 DNA, PCR. Specimen Blood Narrative Performed At Performing Lab [facility] *[facility] [address] [place] [address] Lopez Reynolds MD Performing Organization Address City/State/Zipcode Phone Number [facility] [place], [address] [place], [place] [facility] [address] * CMV PCR, quantitative (01/25/2019 8:02 AM CDT) CMV DNA Viral Load Negative or below the linear [facility] range of the assay (<375 [facility] copies/mL) Specimen Blood Narrative Performed At Cytomegalovirus (CMV) infection can cause significant disease in [facility] immunosuppressed patients. However, it is common for CMV to manifest as a [facility] limited infection which is of no [...] and its performance characteristics determined by the [facility] Pathology Department, Section of Molecular Pathology. It has not been cleared or approved by the U.S. Food and Drug Administration (FDA), since FDA approval is not required for clinical use of the test. Validation was done as required by The Clinical Laboratory Improvement Amendments of 1988. Performing Organization Address City/State/Zipcode Phone Number [facility] [address] [place] [address] [facility] * Parvovirus B19 antibodies (IgG, IgM) (01/25/2019 8:02 AM CDT) Parvovirus Ab Profile. Refer to individual Parvovirus [facility] B19 IgG and Igm results INC[facility]PORATED Specimen Blood Performing Organization Address City/[facility] Phone Number [facility], [address] [place], [place] [facility] [address] * Haptoglobin (01/25/2019 8:02 AM CDT) Haptoglobin 114 14 - 258 mg/dL [facility] Specimen Blood Performing Organization Address City/[facility] Phone Number [address] [address] [facility] * Ferritin (01/25/2019 8:02 AM CDT) Ferritin 869 (H) 5 - 275 ng/mL [facility] Specimen Blood Performing Organization Address [facility] [place] [address] [phone] [place] [address] * Triglycerides (01/25/2019 3:26 AM CDT) Triglycerides 67 mg/dL [facility] Specimen Blood Narrative Performed At TRIGLYCERIDE REFERENCE RANGE [facility] Low Risk<150 [facility] Borderline Risk 150-199 High [id number] Very High Risk >=500 Performing Organization Address [facility] Phone Number [address] [address] [phone] [place] [address] * Magnesium (01/25/2019 3:26 AM CDT) Only the most recent of 2 results within the time period is included. Magnesium 2.6 1.6 - 2.6 mg/dL [facility] Specimen Blood Performing Organization Address [facility] Phone Number [address] [address] [facility] * Methotrexate level (01/24/2019 6:39 PM CDT) Methotrexate <0.04 umol/L [facility] Specimen Blood Performing Organization Address City/State/Zipcode Phone Number [address] [address] [phone] [place] [address] * jaimie RASCON (01/24/2019 2:08 AM CDT) ABO Grouping A [facility] Rh Factor POS [facility] Specimen Blood Performing Organization Address City/[facility] Phone Number [address] * HIV-1 Antigen with HIV-1/2 Antibody (01/24/2019 2:08 AM CDT) HIV-1 Antigen with HIV NON-REACTIVE Nonreactive [facility] 1&2 Antibody [facility] Specimen Blood Performing Organization Address City/[facility] Phone Number [address] * Hepatitis B Panel (01/24/2019 2:08 AM CDT) Hep B Core Total Ab NON-REACTIVE Nonreactive [facility] Hep B S Ab <8.0 <8.0 mIU/mL [facility] hepatitis B Surface Ag NON-REACTIVE Nonreactive [facility] Specimen Blood Performing Organization Address City/[facility] Phone Number [address] * Hepatitis C antibody (01/24/2019 2:08 AM CDT) Hepatitis C Ab NON-REACTIVE Nonreactive [facility] Specimen Blood Performing Organization Address City/[facility]/Zipcode Phone Number [place] [phone] * Vitamin B12 and Folate (01/24/2019 1:08 AM CDT) Vitamin B12 379 213 - 816 pg/mL [facility] Folate >40.0 >=7.0 ng/mL [facility] Specimen Blood Performing Organization Address City/[facility]/Zipcode Phone Number [address] [address] [facility] * Iron, TIBC, % sat. (without ferritin) (01/24/2019 1:08 AM CDT) Iron 252.0 (H) 40.0 - 160.0 ug/dL [facility] TIBC 285 250 - 450 ug/dL [facility] Iron % Saturation 88 (H) 20 - 55 % [facility] Specimen Blood Performing Organization Address [facility] [place] [address] [phone] [place] [address] * Peripheral Blood Smear - Path Review (01/24/2019 1:01 AM CDT) RBC Morphology Comment: Hypochromic, [facility] macrocytic anemia with [facility] moderate anisocytosis and mild poikilocytosis, including occasional elliptocytes and spherocytes. Rare microcytes, dacrocytes and schistocytes also present. Mild rouleaux present. Minimal polychromasia. WBC Morphology Comment: Decreased with [facility] absolute neutropenia and [facility] lymphopenia. Platelet Morphology Comment: Markedly decreased. [facility] Normal granular morphology. [facility] Occasional large forms. No platelet clumping identified. Pathologist: Trent Byers MD (electronic [facility] signature) [facility] Specimen Blood Performing Organization Address City/[facility]/Zipcode Phone Number [address] [address] [facility] * Prothrombin time/INR (01/24/2019 1:01 AM CDT) Protime 14.2 11.7 - 14.7 seconds [facility] INR 1.1 <=5.9 [facility] Specimen Blood Narrative Performed At RECOMMENDED COUMADIN/WARFARIN INR THERAPY RANGES [facility] STANDARD DOSE: 2.0 - 3.0 Includes: PROPHYLAXIS for venous thrombosis, [facility] systemic embolization; TREATMENT for venous thrombosis and/or pulmonary embolus. HIGH RISK: Target INR is 2.5-3.5 for patients with mechanical heart valves. Performing Organization Address City/State/Zipcode Phone Number [facility] [address] [place] [address] [facility] * Lactate dehydrogenase (LDH) (01/24/2019 1:01 AM CDT) LDH 228 (H) 125 - 220 U/L [facility] Specimen Blood Performing Organization Address City/[facility]/Zipcode Phone Number [facility] [address] [place] [address] [facility] after 02/15/2018 Insurance Payer Benefit Subscriber ID Type Phone Address Plan / Group [employer] xxxxxxxxx [facility] HMO ALL Contracted Advance Directives For more information, please contact: [address] [address] Date Inactivated Comments Code Status Date Activated 02/04/2019 6:30 PM Full Code 01/23/2019 11:31 PM This code status was determined by: Patient
[2019-02-17] VITALS (8 sets, daily range): BP systolic 106–122; BP diastolic 55–67
--- NOTE | 2019-02-17 02:46 | NUR ---
PT IS TRANSFERRED FROM ER .PT IS AOX3 PT HAS LOSS MEMORY .RESPIRATIONS ARE EVEN AND UNLABORED .SKIN WARM AND DRY TO TOUCH RT 20G D5NS AT 80 CC IS INFUSING .TELE SHOWS SR .CALL LIGHT WITH IN REACH .CONTINUE TO MONITOR
[2019-02-17 07:02] LABS: BASOPHILS # (AUTO) 0.1 (0.0-0.1); BASOPHILS % 0.7 % (0.0-1.0); EOSINOPHILS # (AUTO) 0.1 (0.0-0.4); EOSINOPHILS % 1.2 % (0.0-6.0); HEMATOCRIT 34.9 % (34.2-44.1); HEMOGLOBIN 11.4 g/dL (12.0-16.0); LYMPHOCYTES # (AUTO) 1.3 (1.0-3.2); LYMPHOCYTES % 13.4 % (18.0-39.1); MEAN CORPUSCULAR HGB CONC 32.7 g/dL (31-35); MONOCYTES # (AUTO) 1.2 (0.2-0.8); MONOCYTES % 12.2 % (4.4-11.3); PLATELET COUNT 184 x10e3/uL (140-360); RED BLOOD COUNT 3.56 x10e6/uL (3.6-5.1); RED CELL DISTRIBUTION WIDTH 15.2 % (11.7-14.4)
[2019-02-17] MEDS ORDERED: PNEUMOCOCCAL VACCINE POLYVALENT 23 MCG/0.5 ML VIAL IM SCH (07:13)
[2019-02-17] MEDS ORDERED: INFLUENZA VIRUS VAC SPLIT INJ 0.5 ML SYR IM SCH (07:13)
[2019-02-17 07:25] LABS: ALBUMIN 3.3 g/dL (3.5-5.0); ALBUMIN/GLOBULIN RATIO 0.8 (0.8-2.0); ANION GAP 10.4 mmol/L (8-16); CALCIUM 8.4 mg/dL (8.4-10.2); CREATININE, SERUM 4.39 mg/dL (0.57-1.11); POTASSIUM 4.4 mmol/L (3.5-5.1)
[2019-02-17] MEDS: INSULIN LISPRO 100 UNIT/1 ML 3ML VIAL SQ SCH ×4 (07:30→20:28)
[2019-02-17 07:33] LABS: CREATINE KINASE MB 0.7 ng/mL (0-5.0)
[2019-02-17] MEDS ORDERED: DIATRIZOATE MEGL/DIATRIZOA SOD 30 ML BTL PO ONE (09:51)
[2019-02-17] MEDS: SODIUM CHLORIDE 0.9% 1000ML 1,000 ML IV SCH ×2 (10:02→20:35)
[2019-02-17] MEDS: ROPINIROLE HCL 0.25 MG TAB PO SCH ×2 (10:02→15:55)
[2019-02-17] MEDS: DULOXETINE HCL 30 MG DELAYED RELEASE PO SCH (10:02)
--- NOTE | 2019-02-17 12:23 | Diagnostic Imaging Report ---
EXAM: CT Abdomen and Pelvis WITHOUT contrast INDICATION: ^PAIN ^[id number] ^1100 COMPARISON: None. TECHNIQUE: Abdomen and pelvis were scanned utilizing a multidetector helical scanner from the lung base to the pubic symphysis without administration of IV contrast. Absence of intravenous contrast decreases sensitivity for detection of focal lesions and vascular pathology. Coronal and sagittal reformations were obtained. Routine protocol was performed. IV CONTRAST: None ORAL CONTRAST: Gastroview COMPLICATIONS: None RADIATION DOSE: Total DLP: 471.48 mGy*cm Estimated effective dose: (DLP x 0.015 x size factor) mSv CTDIvol has been reviewed. It is below the limits set by the Radiation Protocol Committee (RPC). FINDINGS: LINES and TUBES: None. LOWER THORAX: 6 mm right lower lobe nodule (series 2, image 2). Another 4 mm right base nodule (2/10). HEPATOBILIARY: Unenhanced liver is unremarkable. Common bile duct dilatation up to 1.3 cm, likely due to reservoir effect. GALLBLADDER: Not visualized. SPLEEN: No splenomegaly. PANCREAS: No focal masses or ductal dilatation. ADRENALS: No adrenal nodules KIDNEYS/URETERS: No hydronephrosis. Limited for evaluation of renal parenchyma without intravenous contrast. Punctate left superior pole calculus (series 302, image 63). Nonspecific bilateral perinephric mild fat stranding. GI TRACT: No abnormal distention, wall thickening, or evidence of bowel obstruction. Appendix is normal. PELVIC ORGANS/BLADDER: Bladder is unremarkable. Hysterectomy. LYMPH NODES: No lymphadenopathy. VESSELS: Unremarkable. PERITONEUM / RETROPERITONEUM: No free air or fluid. BONES: Unremarkable. SOFT TISSUES: Unremarkable. IMPRESSION: 1. No definite evidence of acute inflammatory process in the abdomen/pelvis, considering limitations of unenhanced study. 2. Right lower lobe lung nodules. Recommend follow-up in with chest CT in 6-12 months to ensure stability. Signed by: Dr. Norris Pierre MD on 02/17/2019 12:20 PM
[2019-02-17] MEDS ORDERED: NON-FORMULARY MEDICATION (Ropinirole Hcl 0.5 MG) PO SCH (15:00)
[2019-02-17 16:19] LABS: CREATINE KINASE MB 0.7 ng/mL (0-5.0)
--- NOTE | 2019-02-17 17:42 | NUR ---
Nutrition Intervention Note RD Recommendation(s) for Physician: - Add 1500 ADA to current diet - Recommend Glucerna Shake BID for adequacy, labs WNL - Consider checking Phos with next lab draw Plan of Care: RD following, monitoring for tolerance and adequacy Nutrition reason for involvement: Nutrition Risk Trigger- Dx RD Assessment 02/17: 68 YOF admitted for ARF on CRF with MICHAEL and dehydration per MD H&P, pt seen today per dx. Pt discussed during am rounds, pending renal consult- no plan yet. Pt reports decreased appetite for a few months and states "I've been forcing myself to eat" and was drinking Glucerna shakes sometimes- receptive to receiving Glucerna shakes. Pt with 25-75% intake since admit. Pt reports ongoing nausea, currently relieved by zofran. Pt reports UBW of 200#, no wt loss noted. Will monitor and continue to follow. Principal Problems/Diagnoses: ARF on CRF, MICHAEL, dehydration PMH: Dm2, HTN, RA GI: WDL Skin: intact Labs: 02/17: Na 132, K 4.4, BUN 66, Cr 4.39, Gluc 115 Meds: humalog, zofran Ht: 66 in Wt: 203 lb BMI: 32.8 kg/m2 IBW: 130 lb Malnutrition Evaluation (02/17/19) The patient does not meet criteria for a specified degree of malnutrition at this time. Will re-evaluate at follow-up as appropriate. Nutrition Prescription (Diet Order): Renal Estimated Nutritional Needs: 8257-6356 calories/day (22-25 kcal/kg IBW) 47-71 g protein/day (0.8-1.2 g pro/kg IBW) Diet Adequacy: Not meeting calorie needs, Not meeting protein needs Diet Education Needs Assessment: Diet education indicated, pt not appropriate at this time. Nutrition Care Level: Low Nutrition Diagnosis: Inadequate energy and inadequate protein intake related to current medical conditions as evidenced by nausea and poor appetite. Goal: Patient will meet 75-100% of estimated needs by follow up Progress: N/A Interventions: Mineral, CHO modified diet, Commercial beverage, Recommended Modifications, Collaboration with other providers Monitoring/Evaluation: Total energy intake, Total protein intake, Modified diet, Liquid supplement Signed: Gabriella Godoy RD, LD, [facility]
--- NOTE | 2019-02-17 18:15 | NUR ---
aware of swollen ankles
--- NOTE | 2019-02-17 19:05 | NUR ---
Report given to oncoming nurse of patient's status. Resting in bed. No s/s of acute distress noted. Side rails upx2, call light within reach.
--- NOTE | 2019-02-17 19:15 | NUR ---
oncoming nurse aware patient due for flu and pneumonia vaccine.
[2019-02-17] MEDS ORDERED: PNEUMOCOCCAL VACCINE POLYVALENT 23 MCG/0.5 ML VIAL IM NR (20:00)
[2019-02-17] MEDS ORDERED: INFLUENZA VIRUS VAC SPLIT INJ 0.5 ML SYR IM NR (20:00)
[2019-02-17] MEDS ORDERED: GABAPENTIN 400 MG CAP PO SCH (21:00)
[2019-02-17] MEDS: ACETAMINOPHEN/CODEINE 300MG - 30MG TAB PO PRN (23:48)
[2019-02-18] VITALS (9 sets, daily range): BP systolic 112–137; BP diastolic 56–70
--- NOTE | 2019-02-18 01:36 | Consultation ---
DATE OF CONSULTATION: 02/17/2019 Renal Consultation REASON FOR CONSULTATION: Acute on chronic kidney disease. HISTORY OF PRESENT ILLNESS: A 68-year-old female with history of stage 3 chronic kidney disease, diabetes, and hypertension, who presented to [facility] with altered mental status. The patient is a poor historian, but states that she was having difficulty thinking, was having some nausea, vomiting. No diarrhea and was having difficulty with keeping any fluids down. In the emergency room, her blood pressure is 104/56 with a heart rate of 94, and temperature 96.2. The patient on labs was noted to have acute kidney injury, was started on IV fluids. Admitted and Nephrology consultation was called. The patient follows normally with Dr. Borrego. Last creatinine was 1.66. REVIEW OF SYSTEMS: As above. All other systems negative. PAST MEDICAL HISTORY: 1. Chronic kidney disease, stage 3. 2. Osteoarthritis. 3. GERD. 4. Dyslipidemia. 5. Rheumatoid arthritis. 6. Diabetes. 7. Hypertension. 8. Neuropathy. 9. Sarcoidosis. 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 SOCIAL HISTORY: No tobacco, no alcohol, no IV drugs. FAMILY HISTORY: Positive for chronic kidney disease. ALLERGIES: AMOXICILLIN. CURRENT MEDICATIONS: See list. PHYSICAL EXAMINATION: VITAL SIGNS: Blood pressure 110/55, pulse 76, respiratory rate 18, and temperature 96.5. GENERAL: No apparent distress. HEENT: Oropharynx clear. No scleral icterus. No periorbital edema. NECK: Supple. No elevation in jugular venous pressure. No lymphadenopathy. CHEST: Clear to auscultation anteriorly bilaterally. CARDIOVASCULAR: Regular rhythm. ABDOMEN: Soft. Positive bowel sounds. No tenderness. No rebound. EXTREMITIES: No edema. No clubbing. No cyanosis. SKIN: Warm. LABORTORY AND DIAGNOSTIC DATA: Sodium 132, potassium 4.4, chloride 99, BUN 66, creatinine 4.39, albumin 3.3. White count 9.83, was 12.65 on admission, hemoglobin 11.4, hematocrit 34.9, and platelets 184. Urine negative, moderate bacteria, and 2-[address] of the abdomen and pelvis shows no acute inflammatory process in the abdomen and pelvis. Right lower lobe lung nodules. Recommend followup CT. Chest x-ray clear. Brain CT shows mild generalized volume loss. ASSESSMENT AND PLAN: 1. Acute kidney injury, on stage 3 chronic kidney disease. Suspect secondary to volume depletion. Continue with IV fluids. 2. Hypertension. Blood pressure controlled as the patient's volume depleted. We will monitor. 3. Altered mental status, possibly due to gabapentin. We will discontinue at this time. 4. Lytes, mild hyponatremia. Follow with isotonic fluid. 5. Diabetes per primary team. MD VI Garner/MODL /[id number]
[2019-02-18 04:56] LABS: BASOPHILS # (AUTO) 0.1 (0.0-0.1); BASOPHILS % 0.8 % (0.0-1.0); EOSINOPHILS # (AUTO) 0.1 (0.0-0.4); EOSINOPHILS % 1.8 % (0.0-6.0); HEMATOCRIT 31.4 % (34.2-44.1); HEMOGLOBIN 10.1 g/dL (12.0-16.0); LYMPHOCYTES # (AUTO) 1.1 (1.0-3.2); LYMPHOCYTES % 14.5 % (18.0-39.1); MEAN CORPUSCULAR HEMOGLOBIN 31.6 pg (28-32); MEAN CORPUSCULAR HGB CONC 32.2 g/dL (31-35); MEAN CORPUSCULAR VOLUME 98.1 fL (81-99); MONOCYTES # (AUTO) 0.9 (0.2-0.8); MONOCYTES % 10.9 % (4.4-11.3); NEUTROPHILS # (AUTO) 5.5 (2.1-6.9); NEUTROPHILS % 70.6 % (38.7-80.0); PLATELET COUNT 160 x10e3/uL (140-360); RED CELL DISTRIBUTION WIDTH 14.9 % (11.7-14.4)
[2019-02-18] MEDS: SODIUM CHLORIDE 0.9% 1000ML 1,000 ML IV SCH ×3 (05:12→22:59)
[2019-02-18 05:18] LABS: ANION GAP 10.3 mmol/L (8-16); CALCIUM 8.1 mg/dL (8.4-10.2); CREATININE, SERUM 2.54 mg/dL (0.57-1.11); POTASSIUM 4.3 mmol/L (3.5-5.1)
[2019-02-18 05:58] LABS: MAGNESIUM 2.1 MG/DL (1.3-2.1); PHOSPHORUS 2.3 MG/DL (2.3-4.7)
[2019-02-18 06:16] LABS: THYROID STIMULATING HORMONE 0.377 uIU/mL (0.350-4.940)
[2019-02-18 06:42] LABS: FOLATE 19.2 ng/mL (7.0-15.4)
--- NOTE | 2019-02-18 07:00 | NUR ---
BEDSIDE SHIFT REPORT RECEIVED FROM LOSS PREVENTION AND SAFETY MANAGER RN. PT DENIES NEEDS AT THIS TIME
[2019-02-18] MEDS: INSULIN LISPRO 100 UNIT/1 ML 3ML VIAL SQ SCH ×4 (07:30→21:00)
[2019-02-18] MEDS: DULOXETINE HCL 30 MG DELAYED RELEASE PO SCH (08:50)
--- NOTE | 2019-02-18 11:18 | NUR ---
IMM letter delivered and explained to pt. She verbalized understanding. Signed copy placed in chart. Copy to pt's transition of care folder.
--- NOTE | 2019-02-18 19:00 | NUR ---
BEDSIDE SHIFT REPORT GIVEN TO REGULATED PROGRAM MANAGER RN. PT DENIES NEEDS AT THIS TIME.
[2019-02-18] MEDS: ACETAMINOPHEN/CODEINE 300MG - 30MG TAB PO PRN (20:43)
--- NOTE | 2019-02-18 20:44 | NUR ---
PATIENT C/O GENERALIZED PAIN, MEDICATED WITH TYLENOL #3 1 TAB ORDERED. BED ALARM ON, CALL LIGHT WITHIN EASY REACH, SHE'S INSTRUCTED TO CALL FOR ASSISTANCE NEEDED.
[2019-02-19] VITALS (7 sets, daily range): BP systolic 122–158; BP diastolic 64–77
--- NOTE | 2019-02-19 00:09 | NUR ---
PATIENT IS SOUNDLY ASLEEP, SHE'S EASY TO AROUSE. SHE DENIES PAIN, NO RESPIRATORY DISTRESS OBSERVED. BED ALARM ON, CALL LIGHT WITHIN EASY REACH.
--- NOTE | 2019-02-19 03:43 | NUR ---
WALKING ROUNDS MADE, PATIENT IS ASLEEP WITHOUT RESPIRATORY DISTRESS. BED ALARM ON, CALL LIGHT WITHIN EASY REACH.
[2019-02-19] MEDS: ACETAMINOPHEN/CODEINE 300MG - 30MG TAB PO PRN ×2 (05:50→20:06)
--- NOTE | 2019-02-19 05:50 | NUR ---
PATIENT JUST GOT OUT OF THE SHOWER, SHE C/O PAIN TO THE LEGS. MEDICATED WITH TYLENOL #3 1TAB ORDERED. BED ALARM ON, CALL LIGHT WITHIN EASY REACH AND SAFETY SOCK PROVIDED.
--- NOTE | 2019-02-19 07:00 | NUR ---
BEDSIDE SHIFT REPORT RECEIVED FROM FILM LOADER RN. PT DENIES NEEDS AT THIS TIME
[2019-02-19] MEDS: INSULIN LISPRO 100 UNIT/1 ML 3ML VIAL SQ SCH ×4 (07:30→21:26)
[2019-02-19] MEDS: DULOXETINE HCL 30 MG DELAYED RELEASE PO SCH (08:13)
[2019-02-19 10:15] LABS: ANION GAP 9.2 mmol/L (8-16); CALCIUM 8.1 mg/dL (8.4-10.2); CREATININE, SERUM 1.61 mg/dL (0.57-1.11); POTASSIUM 4.2 mmol/L (3.5-5.1)
[2019-02-19] MEDS: ONDANSETRON HCL 4 MG ORAL DISINTEGRATING TAB PO PRN (10:19)
[2019-02-19] MEDS: SODIUM CHLORIDE 0.9% 1000ML 1,000 ML IV SCH (11:30)
--- NOTE | 2019-02-19 19:00 | NUR ---
BEDSIDE SHIFT REPORT GIVEN TO JUNIOR LEGAL SECRETARY RN. PT DENIED FURTHER NEEDS.
--- NOTE | 2019-02-19 20:07 | NUR ---
PATIENT SITTING AT THE SIDE OF THE BED, SHE C/O PAIN TO THE LEGS WITH PAIN SCORE #7. MEDICATED WITH TYLENOL #3 1TAB ADMINISTERED ORDERED, CALL LIGHT WITHIN EASY REACH, SHE'S INSTRUCTED TO CALL FOR ASSISTANCE UPON GETTING OUT OF THE BED.
--- NOTE | 2019-02-20 00:15 | NUR ---
PATIENT CONDITION STABLE WITHOUT DISTRESS, SHE DENIES PAIN. SHE'S ON HER WAY TO THE RESTROOM, SHE'S INSTRUCTED TO CALL FOR ASSISTANCE NEEDED.
[2019-02-20 00:38] VITALS: BP 127/67
[2019-02-20 04:00] VITALS: BP 153/74
[2019-02-20] MEDS: ONDANSETRON HCL 4 MG ORAL DISINTEGRATING TAB PO PRN (05:11)
--- NOTE | 2019-02-20 05:12 | NUR ---
PATIENT C/O NAUSEA, SHE'S MEDICATED WITH ZOFRAN ORDERED. WILL REASSESS FOR EFFECTIVENESS OF THE MEDICATION.
[2019-02-20] MEDS: INSULIN LISPRO 100 UNIT/1 ML 3ML VIAL SQ SCH ×2 (07:30→11:30)
[2019-02-20 08:00] VITALS: BP 150/77
[2019-02-20] MEDS: DULOXETINE HCL 30 MG DELAYED RELEASE PO SCH (08:16)
--- NOTE | 2019-02-20 09:57 | NUR ---
Patient c/o nausea that is unrelieved from Zofran. Paged Dr. Trujillo. Awaiting call back.
--- NOTE | 2019-02-20 12:36 | NUR ---
IMM letter delivered and reminded pt of Medicare Rights. She verbalized understanding and stated that she was ready to discharge home. Signed copy placed in chart. Copy placed in pt's transition of care folder.
--- NOTE | 2019-02-20 13:46 | NUR ---
Discharge instructions and prescriptions given to the patient, she verbalized understanding. IV to the left FA was removed with tip intact.
--- NOTE | 2019-02-21 03:08 | Discharge Summary ---
PRIMARY CARE PHYSICIAN: Dr. Faustino Aburto. STEREO EQUIPMENT INSTALLER: Dr. Charlene Vela. FINAL DIAGNOSES: 1. [id number] failure secondary to severe dehydration, nausea, and vomiting. 2. Altered mental status secondary to metabolic acidosis, resolved. SUMMARY: The patient is a 68-year-old female, came in with some confusion, with dehydration with BUN and creatinine elevated on admission at 66 and 4.39. It is now at 23 and 1.61 after rehydration. The patient is otherwise stable. Her nausea is improving. Baseline MDS. The patient at baseline with anemia, but is stable as well. Platelet in 160,000. Hemoglobin and hematocrit are 10.1 and 31.4. The patient is stable and discharged home today. The patient will follow up with Dr. Vela, her relief operator. The patient was discharged home to resume home medication. She will go off the bumetanide, lisinopril/HCTZ, and Actos. The patient will be discharged home to continue with pain medication, Phenergan, and her nausea medication as well as Cymbalta. For her blood pressure, she will initiate on nifedipine XL 30 mg daily. The patient is otherwise stable, discharged home today. MD BENTON Vernon/ARYL /[id number] cc: Faustino Aburto MD
== END 2019-02-20 14:30 | disposition home or self-care (01) | DRG 683 ==
LOC: ER 15:41 → ERHOLD 23:12 → MED/SURG2 02-17 01:01
PROVIDERS: ADMIT Internal Medicine; ATTEND Internal Medicine
DX: I12.9 Hypertensive chronic kidney disease with stage 1 through stage 4 chronic kidney disease, or unspecified chronic kidney disease (principal); N17.9 Acute kidney failure, unspecified; E87.1 Hypo-osmolality and hyponatremia; E87.2 Acidosis; E11.22 Type 2 diabetes mellitus with diabetic chronic kidney disease; N18.3 Chronic kidney disease, stage 3 (moderate); R41.0 Disorientation, unspecified; D46.9 Myelodysplastic syndrome, unspecified
CPT/HCPCS: 36415; 70450; 71045; 74176; 80048; 80053; 81001; 82550; 82553; 82607; 82746; 82948; 83735; 84100; 84443; 84484; 85025; 85610; 85730; 90732; 93005; 96372; 99285; J2405; J7030; J7042; J7799

== ENCOUNTER 2021-06-21 22:10 | Emergency (ER) | payer OTHER ==
[~2021-06-21] VITALS: Ht 162.6 cm; Wt 82.6 kg
[~2021-06-21 22:10] MED LIST changes: +BUMETANIDE1 MG PO; +CYMBALTA30 MG PO; +GABAPENTIN400 MG PO; +TYLENOL WITH C1 EACH PO
== END 2021-06-22 00:11 | disposition home or self-care (01) ==
LOC: ER 22:28
DX: M25.561 Pain in right knee (principal); I10 Essential (primary) hypertension; E11.9 Type 2 diabetes mellitus without complications; M06.9 Rheumatoid arthritis, unspecified
CPT/HCPCS: 99283

== ENCOUNTER 2024-11-02 16:33 | Inpatient (IN) | payer OTHER ==
[~2024-11-02] VITALS: Ht 167.6 cm; Wt 84.4 kg
[2024-11-02 16:39] VITALS: TEMP 97.7
[2024-11-02] MEDS ORDERED: SODIUM CHLORIDE FLUSH 10 ML SYR IV PRN (17:30)
[2024-11-02 17:33] LABS: BASOPHILS # (AUTO) 0.1 (0.0-0.1); BASOPHILS % 0.5 % (0.0-1.0); EOSINOPHILS # (AUTO) 0.4 (0.0-0.4); EOSINOPHILS % 3.8 % (0.0-6.0); HEMATOCRIT 33.9 % (34.2-44.1); HEMOGLOBIN 11.1 g/dL (12.0-16.0); LYMPHOCYTES # (AUTO) 1.4 (1.0-3.2); LYMPHOCYTES % 14.8 % (18.0-39.1); MEAN CORPUSCULAR HEMOGLOBIN 30.4 pg (28-32); MEAN CORPUSCULAR HGB CONC 32.7 g/dL (31-35); MEAN CORPUSCULAR VOLUME 92.9 fL (81-99); MONOCYTES # (AUTO) 0.3 (0.2-0.8); MONOCYTES % 3.4 % (4.4-11.3); NEUTROPHILS # (AUTO) 7.1 (2.1-6.9); PLATELET COUNT 260 x10e3/uL (140-360); RED BLOOD COUNT 3.65 x10e6/uL (3.6-5.1); RED CELL DISTRIBUTION WIDTH 12.9 % (11.7-14.4); WHITE BLOOD COUNT 9.17 x10e3/uL (4.8-10.8)
[2024-11-02] MEDS: SODIUM CHLORIDE 0.9% 1000ML 1,000 ML IV ONE ×2 (17:33→21:09)
[2024-11-02] MEDS: ONDANSETRON HCL INJ 2MG/ML 2ML 2 MG/ML VIAL IV STA (17:33)
[2024-11-02 17:53] LABS: ALBUMIN 3.8 g/dL (3.5-5.0); ALBUMIN/GLOBULIN RATIO 0.8 (0.8-2.0); ALKALINE PHOSPHATASE 53 IU/L (40-150); ANION GAP 19.9 mmol/L (8-16); BILIRUBIN,TOTAL 0.4 mg/dL (0.2-1.2); BLOOD UREA NITROGEN 87 mg/dL (7-26); BUN/CREATININE RATIO 12 (6-25); CALCIUM 10.6 mg/dL (8.4-10.2); CARBON DIOXIDE 15 mmol/L (22-29); CHLORIDE 100 mmol/L (98-107); CREATININE, SERUM 7.28 mg/dL (0.57-1.11); EST GLOMERULAR FILTRATION RATE 6 ML/MIN (>=60); GLUCOSE 153 mg/dL (74-118); POTASSIUM 4.9 mmol/L (3.5-5.1); SODIUM 130 mmol/L (136-145); TOTAL PROTEIN 8.7 g/dL (6.5-8.1)
[2024-11-02 17:54] LABS: ALANINE AMINOTRANSFERASE < 6 IU/L (0-55)
[2024-11-02 18:00] LABS: TROPONIN I 0.006 ng/mL (0-0.300)
[2024-11-02 21:22] VITALS: PULSE 98; RESP 13
[2024-11-02] MEDS ORDERED: ONDANSETRON HCL INJ 2MG/ML 2ML 2 MG/ML VIAL IV PRN (22:15)
[2024-11-02 23:00] VITALS: PULSE 96; RESP 18; O2SAT 98
[2024-11-02] MEDS: SODIUM BICARBONATE 8.4% SYRING 150 ML in DEXTROSE 5% 1,000 ML IV SCH (23:21)
[2024-11-03] VITALS (9 sets, daily range): BP systolic 98–120; BP diastolic 66–84; PULSE 75–89; RESP 17–20; TEMP 97.3–97.7; O2SAT 96–100
[2024-11-03] MEDS ORDERED: LISINOPRIL10 MG PO (02:09)
[2024-11-03] MEDS ORDERED: ATORVASTATIN CA10 MG PO (02:09)
[2024-11-03] MEDS ORDERED: MOUNJARO7.5 MG/0.5 SC (02:09)
[2024-11-03] MEDS ORDERED: GLIMEPIRIDE2 MG PO (02:09)
[2024-11-03] MEDS ORDERED: CYMBALTA60 MG PO (02:09)
[2024-11-03] MEDS ORDERED: KERENDIA10 MG PO (02:09)
[2024-11-03] MEDS ORDERED: ALLOPURINOL100 MG PO (02:09)
[2024-11-03] MEDS ORDERED: CALCITRIOL0.25 MCG PO (02:09)
[2024-11-03] MEDS ORDERED: HYDROXYCHLOROQ200 MG PO (02:09)
[2024-11-03] MEDS ORDERED: NIFEDIPINE ER30 M1 PO (02:09)
[2024-11-03 06:07] LABS: ALBUMIN 3.2 g/dL (3.5-5.0); ALBUMIN/GLOBULIN RATIO 0.7 (0.8-2.0); ALKALINE PHOSPHATASE 51 IU/L (40-150); ANION GAP 17.5 mmol/L (8-16); BILIRUBIN,TOTAL 0.2 mg/dL (0.2-1.2); BLOOD UREA NITROGEN 77 mg/dL (7-26); BUN/CREATININE RATIO 13 (6-25); CALCIUM 9.3 mg/dL (8.4-10.2); CARBON DIOXIDE 15 mmol/L (22-29); CHLORIDE 105 mmol/L (98-107); CREATININE, SERUM 5.78 mg/dL (0.57-1.11); EST GLOMERULAR FILTRATION RATE 7 ML/MIN (>=60); GLUCOSE 166 mg/dL (74-118); SODIUM 132 mmol/L (136-145); TOTAL PROTEIN 7.9 g/dL (6.5-8.1)
[2024-11-03 06:10] LABS: ALANINE AMINOTRANSFERASE < 6 IU/L (0-55); POTASSIUM 5.5 mmol/L (3.5-5.1)
[2024-11-03] MEDS ORDERED: DEXTROSE 50% SYRINGE 50 ML IV PRN (08:45)
[2024-11-03] MEDS ORDERED: HYDRALAZINE HCL 20 MG/ML VIAL IV PRN (08:45)
[2024-11-03] MEDS: ALLOPURINOL 100 MG TAB PO SCH (09:46)
[2024-11-03] MEDS: CALCITRIOL 0.25 MCG CAP PO SCH (09:46)
[2024-11-03] MEDS: DULOXETINE HCL 30 MG DELAYED RELEASE PO SCH (09:46)
[2024-11-03 10:26] LABS: BASOPHILS % 0.5 % (0.0-1.0); EOSINOPHILS # (AUTO) 0.4 (0.0-0.4); EOSINOPHILS % 4.9 % (0.0-6.0); HEMATOCRIT 28.3 % (34.2-44.1); HEMOGLOBIN 9.5 g/dL (12.0-16.0); LYMPHOCYTES # (AUTO) 1.7 (1.0-3.2); LYMPHOCYTES % 21.8 % (18.0-39.1); MEAN CORPUSCULAR HEMOGLOBIN 30.9 pg (28-32); MEAN CORPUSCULAR HGB CONC 33.6 g/dL (31-35); MEAN CORPUSCULAR VOLUME 92.2 fL (81-99); MONOCYTES # (AUTO) 0.4 (0.2-0.8); NEUTROPHILS # (AUTO) 5.2 (2.1-6.9); NEUTROPHILS % 67.5 % (38.7-80.0); PLATELET COUNT 212 x10e3/uL (140-360); RED BLOOD COUNT 3.07 x10e6/uL (3.6-5.1); RED CELL DISTRIBUTION WIDTH 12.9 % (11.7-14.4); WHITE BLOOD COUNT 7.74 x10e3/uL (4.8-10.8)
[2024-11-03] MEDS: INSULIN LISPRO 100 UNIT/1 ML 3ML VIAL SQ SCH (11:30)
[2024-11-03 17:45] LABS: ABG PH 7.36 (7.35-7.45)
[2024-11-03 17:46] LABS: ABG HCO3 25 mmol/L (22-26); ABG PCO2 45 mmHg (35-45); ABG PO2 72 mmHg (80-105); ABG TCO2 25
[2024-11-03] MEDS: GABAPENTIN 400 MG CAP PO SCH (22:08)
[2024-11-03] MEDS: LACTATED RINGER'S 1,000 ML INJ SCH (22:09)
[2024-11-04 07:29] LABS: BILIRUBIN,URINE NEGATIVE (NEGATIVE); CLARITY,URINE CLEAR (CLEAR); COLOR,URINE YELLOW (YELLOW); GLUCOSE, URINE NEGATIVE (NEGATIVE); KETONES,URINE NEGATIVE (NEGATIVE); LEUKOCYTE ESTERASE ,URINE NEGATIVE (NEGATIVE); NITRITE,URINE NEGATIVE (NEGATIVE); PH,URINE 5.5 (5 - 7); PROTEIN,URINE DIPSTICK NEGATIVE (NEGATIVE); URINE UROBILINOGEN 0.2 mg/dL (0.2 - 1)
[2024-11-04 07:32] LABS: BACTERIA,URINE MODERATE /HPF; EPITHELIAL CELLS,URINE FEW /LPF; RBC,URINE 0-5 /HPF (0-5); WBC,URINE (MAN) 0-5 /HPF (0-5)
[2024-11-04 08:40] VITALS: BP 120/81; PULSE 91; RESP 18; TEMP 97.6; O2SAT 100
[2024-11-04 08:41] VITALS: BP 120/81; PULSE 91; RESP 18; TEMP 97.6; O2SAT 100
[2024-11-04 09:08] LABS: BASOPHILS # (AUTO) 0.1 (0.0-0.1); BASOPHILS % 0.8 % (0.0-1.0); EOSINOPHILS # (AUTO) 0.3 (0.0-0.4); EOSINOPHILS % 4.4 % (0.0-6.0); HEMATOCRIT 28.5 % (34.2-44.1); HEMOGLOBIN 9.5 g/dL (12.0-16.0); LYMPHOCYTES # (AUTO) 1.7 (1.0-3.2); LYMPHOCYTES % 21.3 % (18.0-39.1); MEAN CORPUSCULAR HEMOGLOBIN 30.6 pg (28-32); MEAN CORPUSCULAR HGB CONC 33.3 g/dL (31-35); MEAN CORPUSCULAR VOLUME 91.9 fL (81-99); MONOCYTES # (AUTO) 0.4 (0.2-0.8); MONOCYTES % 5.2 % (4.4-11.3); NEUTROPHILS # (AUTO) 5.3 (2.1-6.9); PLATELET COUNT 232 x10e3/uL (140-360); WHITE BLOOD COUNT 7.81 x10e3/uL (4.8-10.8)
[2024-11-04 09:33] LABS: ANION GAP 13.3 mmol/L (8-16); CALCIUM 9.1 mg/dL (8.4-10.2); CREATININE, SERUM 3.31 mg/dL (0.57-1.11); POTASSIUM 5.3 mmol/L (3.5-5.1)
[2024-11-04 10:13] LABS: THYROID STIMULATING HORMONE 1.819 uIU/mL (0.350-4.940)
[2024-11-04] MEDS: SODIUM CHLORIDE 0.9% 1000ML 1,000 ML IV SCH (11:30)
[2024-11-04] MEDS: ACETAMINOPHEN/CODEINE 300MG - 30MG TAB PO PRN (11:48)
[2024-11-04 12:00] VITALS: BP 108/69; PULSE 85; RESP 18; TEMP 97.8; O2SAT 100
[2024-11-04 20:00] VITALS: BP 108/69; PULSE 85; RESP 18; TEMP 97.8; O2SAT 100
[2024-11-05 07:48] LABS: ABG HCO3 25 mmol/L (22-26); ABG PCO2 45 mmHg (35-45); ABG PH 7.36 (7.35-7.45); ABG PO2 72 mmHg (80-105); ABG TCO2 26
[2024-11-05 07:50] VITALS: BP 116/76; PULSE 83; RESP 18; TEMP 97.9; O2SAT 100
[2024-11-05 08:34] VITALS: BP 116/76; PULSE 83; RESP 18; TEMP 97.9; O2SAT 100
[2024-11-05 09:03] LABS: ANION GAP 14.8 mmol/L (8-16); CALCIUM 9.2 mg/dL (8.4-10.2); CREATININE, SERUM 2.84 mg/dL (0.57-1.11); POTASSIUM 4.8 mmol/L (3.5-5.1)
[2024-11-05] MEDS: DEXTROSE 5%/0.9% SOD CHL 1,000 ML IV SCH (09:51)
[2024-11-05 12:13] VITALS: BP 116/74; PULSE 80; RESP 16; TEMP 97.8; O2SAT 100
[2024-11-05 17:26] VITALS: BP 111/74; PULSE 84; RESP 17; TEMP 97.5; O2SAT 96
[2024-11-05 20:00] VITALS: BP_SYST 108; BP_SYST 130; BP_DIAS 69; BP_DIAS 78; PULSE 79; PULSE 85; RESP 18; TEMP 97.8; TEMP 97.9; O2SAT 100; O2SAT 99
[2024-11-06 04:00] VITALS: BP 122/72; PULSE 86; RESP 16; TEMP 97.9; O2SAT 99
[2024-11-06 08:15] VITALS: BP 141/87; PULSE 81; RESP 18; TEMP 98.1; O2SAT 100
[2024-11-06 08:26] VITALS: BP 141/87; PULSE 81; RESP 18; TEMP 98.1; O2SAT 100
[2024-11-06] MEDS: NIFEDIPINE CR 30 MG TAB PO ONE (09:40)
[2024-11-06 11:22] VITALS: BP 148/92; PULSE 81; RESP 18; TEMP 98.1; O2SAT 100
== END 2024-11-06 15:22 | disposition home or self-care (01) | DRG 683 ==
LOC: ER 18:07 → ERHOLD 22:12 → MED/SURG 23:25
PROVIDERS: ADMIT Internal Medicine; ATTEND Internal Medicine
PROC: 4A033R1 Measurement of Arterial Saturation, Peripheral, Percutaneous Approach (ICD-10-PCS; principal; 2024-11-03)
DX: N17.0 Acute kidney failure with tubular necrosis (principal); E44.0 Moderate protein-calorie malnutrition; E86.0 Dehydration; E11.22 Type 2 diabetes mellitus with diabetic chronic kidney disease; I12.9 Hypertensive chronic kidney disease with stage 1 through stage 4 chronic kidney disease, or unspecified chronic kidney disease; N18.9 Chronic kidney disease, unspecified; D63.1 Anemia in chronic kidney disease; I95.9 Hypotension, unspecified; E87.5 Hyperkalemia; R11.0 Nausea; Z68.30 Body mass index [BMI] 30.0-30.9, adult; T38.3X5A Adverse effect of insulin and oral hypoglycemic [antidiabetic] drugs, initial encounter; M06.9 Rheumatoid arthritis, unspecified; M19.90 Unspecified osteoarthritis, unspecified site; Z79.84 Long term (current) use of oral hypoglycemic drugs; Z90.49 Acquired absence of other specified parts of digestive tract; Z90.710 Acquired absence of both cervix and uterus; Z88.1 Allergy status to other antibiotic agents
CPT/HCPCS: 36415; 36600; 71045; 74176; 76770; 80048; 80053; 81001; 82805; 82948; 83036; 83540; 83690; 84443; 84466; 84484; 85025; 93005; 94760; 94799; 99284; J2405; J7030; J7042; J7070